=== PATIENT | female | born 2000 | race Caucasian/White ===

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

== ENCOUNTER 2022-01-31 10:04 | Emergency (ER) | payer OTHER, BC, SELFPAY ==
--- NOTE | 2022-01-31 10:15 | ED.URI ---
HPI - URI/Sore Throat General Chief Complaint: Upper Respiratory Infection Stated Complaint: strep test Time Seen by Provider: 01/31/22 10:15 Source: patient Mode of arrival: ambulatory Limitations: no limitations History of Present Illness HPI Narrative: 22 yo F presents with c/o sore throat for 2 days. No other symptoms. Denies fever/chills. No N/v/D. No fatigue or bodyaches. States she use to get strep twice a year. Pt is well appearing. All systems reviewed and negative except as noted above. Related Data Home Medications Medication Instructions Recorded Confirmed cholecalciferol (vitamin D3) 100 100 mcg PO DAILY 08/13/20 10/21/21 mcg (4,000 unit) capsule Allergies Allergy/AdvReac Type Severity Reaction Status Date / Time No Known Allergies Allergy Verified 10/21/21 14:42 Review of Systems Review of Systems: CONSTITUTIONAL: Denies fever, chills, or sweats. EYES: Denies visual changes, redness, or discharge. ENT: Denies rhinorrhea, congestion. Reports sore throat. CARDIOVASCULAR: Denies chest pain, palpitations, or edema. RESPIRATORY: Denies cough or dyspnea. GASTROINTESTINAL: Denies abdominal pain, nausea, vomiting, or diarrhea. GENITOURINARY: Denies dysuria or hematuria. SKIN: Denies rash or itching. MUSCULOSKELETAL: Denies back pain, joint pain, or myalgia. NEUROLOGIC: Denies headache, numbness, or weakness. PSYCHIATRIC: Denies anxiety or depression. All other systems reviewed are negative, except as documented in HPI. [facility] Past Medical History Medical History Hx of self-harm Surgical History Surgical History H/O knee surgery (~2019) Family History Family History Grandparent Breast cancer Grandparent Heart disease Diabetes mellitus Hypertension Social History Social History (Updated 10/21/21 @ 14:49 by Khadijah Godfrey CMA) Alcohol intake: former Substance use type: does not use Comments At time of signature, agree with nursing past medical, surgical, social and family history. There is no relevant family history pertinent to the presenting complaint. Exam Narrative: GENERAL: This is a well-nourished, well-developed patient, in no apparent distress. HEAD: normocephalic, atraumatic. EYES: PERRL. Sclera clear/white. Vision is grossly intact. EARS: External ears normal, auditory canals clear and without drainage, TMs normal without perforation. Hearing grossly intact. NOSE: External nose normal with no obvious nasal discharge, nares without redness, no rhinorrhea. THROAT: Mucous membranes moist, no erythema to posterior pharynx, no exudates or swelling. Tonsils normal bilaterally. Clear postnasal drainage noted. NECK: Neck supple, non-tender without lymphadenopathy, masses or thyromegaly. CARDIOVASCULAR: Regular rate and rhythm without murmurs, gallops, or rubs. RESPIRATORY: Clear to auscultation. Breath sounds equal bilaterally. No wheezes, rales, or rhonchi. SKIN: warm, Dry, intact with no suspicious lesions or rash, good texture and turgor. NEURO: awake, alert, and oriented to person, place and time. There were no obvious focal neurologic abnormalities. EXTREMITIES: No joint tenderness, effusion, or edema noted. Course Course Level of Care: Express Care Visit Vital Signs Vital signs: Vital Signs Temperature 36.8 C 01/31/22 10:18 Pulse Rate 107 H 01/31/22 10:18 Respiratory Rate 16 01/31/22 10:18 Blood Pressure 103/69 01/31/22 10:18 Pulse Oximetry 98 01/31/22 10:18 Oxygen Delivery Room Air 01/31/22 10:18 Temperature 36.8 C 01/31/22 10:18 Pulse Rate 107 H 01/31/22 10:18 Respiratory Rate 16 01/31/22 10:18 Blood Pressure 103/69 01/31/22 10:18 Pulse Oximetry 98 01/31/22 10:18 Oxygen Delivery Room Air 01/31/22 10:18 Reviewed MDM - URI/Sore Throat MDM Narrative M
[2022-01-31 10:18] VITALS: BP 103/69; PULSE 107; RESP 16; TEMP 36.8; O2SAT 98
== END 2022-01-31 10:33 | disposition home or self-care (01) ==
PROVIDERS: Emergency Provider Nurse Practitioner Family; PCP Family Medicine
DX: J02.9 Acute pharyngitis, unspecified (principal); R09.82 Postnasal drip
CPT/HCPCS: 87081; 87880; 99213; G0463

== ENCOUNTER 2022-07-06 15:06 | Emergency (ER) | payer OTHER, BC, SELFPAY ==
[2022-07-06 15:17] VITALS: BP 111/69; PULSE 91; RESP 16; TEMP 36.3; O2SAT 98
[2022-07-06 16:38] LABS: Influenza A QL RT-PCR Negative (Negative); Influenza B QL RT-PCR Negative (Negative); SARS-CoV-2 RNA PCR Negative
[2022-07-06 16:41] LABS: Strep Group A RT-PCR DETECTED (Negative)
--- NOTE | 2022-07-06 16:58 | ED.GENADULT ---
HPI - General Adult General Chief complaint: Unspecified Stated complaint: diarrhea, sore throat, abdominal pain Time Seen by Provider: 07/06/22 16:42 History of Present Illness HPI narrative: 22-year-old female here for evaluation of sore throat over the past several days. She is tolerating her secretions. Has not attempted any medicine for pain. She presents requesting testing for COVID flu and strep. Denies fevers, chills, nausea, vomiting, cough or shortness of breath. Related Data Home Medications Medication Instructions Recorded Confirmed cholecalciferol (vitamin D3) 100 100 mcg PO DAILY 08/13/20 10/21/21 mcg (4,000 unit) capsule Allergies Allergy/AdvReac Type Severity Reaction Status Date / Time No Known Allergies Allergy Verified 10/21/21 14:42 Review of Systems Review of Systems: Gen: Denies fevers or chills Eyes: Denies eye pain or visual change ENT: Reports sore throat. Respiratory: Denies shortness of breath or cough CV: Denies chest pain or palpitations GI: Denies abdominal pain nausea, emesis or diarrhea : denies burning, urgency, frequency or hematuria Musculoskeletal: Denies back pain or muscle pain Neuro: Denies numbness, tingling, weakness or focal weakness Skin: Denies rash Except as documented, all other systems reviewed and negative [facility] Past Medical History Medical History Hx of self-harm Surgical History Surgical History H/O knee surgery (~2019) Family History Family History Grandparent Breast cancer Grandparent Heart disease Diabetes mellitus Hypertension Social History Social History (Updated 10/21/21 @ 14:49 by Khadijah Godfrey CMA) Alcohol intake: former Substance use type: does not use Exam Narrative: Gen: Alert, oriented, no acute distress Eyes: EOMI, no icterus Pulm: Respirations even and unlabored, symmetric thorax expansion, no audible stridor or visible cyanosis ENT: Posterior oropharynx is erythematous, tonsils are 2+ bilaterally with diffuse patchy exudates; no uvular deviation. Full range of motion in neck. CV: Regular rate per telemetry GI: No distension, no voluntary/involuntary guarding Neuro: AOx4, moves all extremities without apparent difficulty or weakness, follows commands Skin: No jaundice, no visible bruising, rashes, lesions or wounds on exposed skin Psych: Normal mood/affect, insight/judgement good, adequate fund of knowledge, recent/remote memory intact Course Vital Signs Vital signs: Vital Signs Temperature 97.4 F L 07/06/22 15:17 Pulse Rate 91 07/06/22 15:17 Respiratory Rate 16 07/06/22 15:17 Blood Pressure 111/69 07/06/22 15:17 Pulse Oximetry 98 07/06/22 15:17 Oxygen Delivery Room Air 07/06/22 15:17 Temperature 97.4 F L 07/06/22 15:17 Pulse Rate 91 07/06/22 15:17 Respiratory Rate 16 07/06/22 15:17 Blood Pressure 111/69 07/06/22 15:17 Pulse Oximetry 98 07/06/22 15:17 Oxygen Delivery Room Air 07/06/22 15:17 Medical Decision Making MDM Narrative Medical decision making narrative: 22-year-old female here for evaluation of sore throat over the past several days; requesting viral testing and strep throat testing. COVID and flu are negative but her strep test is positive which likely explains her symptoms. She was sent home with course of antibiotics. She is stable for discharge at this time she is tolerating her secretions, no evidence of [employer] RTA visualized, and is not immunocompromised. Return precautions discussed and she voiced understanding Vital Signs Vital Signs: Vital Signs Temperature 97.4 F L 07/06/22 15:17 Pulse Rate 91 07/06/22 15:17 Respiratory Rate 16 07/06/22 15:17 Blood Pressure 111/69 07/06/22 15:17 Pulse Oximetry 98 07/06/22 15:17 Oxygen Delivery Room Air 07/06/22 15
== END 2022-07-06 17:08 | disposition home or self-care (01) ==
PROVIDERS: Emergency Medicine; Emergency Provider Physician Assistant; PCP Family Medicine
DX: J02.0 Streptococcal pharyngitis (principal); Z20.822 Contact with and (suspected) exposure to COVID-19
CPT/HCPCS: 87636; 87651; 99283

== ENCOUNTER 2022-11-26 12:11 | Emergency (ER) | payer OTHER, BC, SELFPAY ==
--- NOTE | ~2022-11-26 | CT_ITS ---
Non-contrast CT scan of the Abdomen and Pelvis Clinical indication: Abdominal pain, hematuria Technique: 2.5 mm axial scans were obtained through the abdomen and pelvis without intravenous or or al contrast. Dose reduction technique was used on this scan by utilizing automated exposure control a nd iterative reconstruction technique. The dose-length product (DLP) was 250.84 mGy-cm. Findings: Images through the lung bases reveal no abnormalities. 4 mm nonobstructing right renal stone noted. No left renal stone. No ureteral stone or hydronephrosis on either side. The liver, spleen, pancreas, gallbladder, and adrenals appear normal. There is no aortic aneurysm. There is no evidence of bowel obstruction. Normal appendix. Images through the pelvis were performed. No lymphadenopathy evident. Urinary bladder unremarkable. N o adnexal mass seen. Trace pelvic ascites. Impression: 4 mm nonobstructing right renal stone. Trace pelvic ascites, nonspecific. Reviewed, dictated and finalized at [facility]. Impression: 4 mm nonobstructing right renal stone. Trace pelvic ascites, nonspecific.
[2022-11-26 12:21] VITALS: BP 124/69; PULSE 80; RESP 17; TEMP 36.4; O2SAT 100
[2022-11-26] MEDS: ONDANSETRON INJ 4 MG/2 ML VIAL IV PUSH (12:44)
[2022-11-26] MEDS: MORPHINE SULFATE (*CRX) 4 MG/ML INJ IV PUSH (12:44)
[2022-11-26] MEDS: SODIUM CHLORIDE 0.9% IV 1,000 ML 999 ML IV CONT (12:44)
[2022-11-26 12:49] LABS: Basophils Absolute Auto 0.1 K/mm3 (0.0-0.1); Basophils Percent Auto 0.6 % (0.2-1.2); Eosinophils Absolute Auto 0.3 K/mm3 (0-0.3); Eosinophils Percent Auto 4.2 % (0-4.4); Hematocrit 39.3 % (37.0-47.0); Hemoglobin 12.8 g/dL (12.0-15.0); Immature Granulocyte Absolute 0.02 K/mm3 (0.00-0.031); Immature Granulocyte Percent A 0.3 % (0-0.5); Lymphocytes Absolute Auto 1.76 K/mm3 (0.9-3.2); Lymphocytes Percent Auto 22.6 % (18.3-44.2); Mean Corpuscular HGB Conc 32.6 g/dl (32-36); Mean Corpuscular Hemoglobin 30.2 pg (26-34); Mean Corpuscular Volume 92.7 fl (80-100); Monocytes Absolute Auto 0.6 K/mm3 (0.1-0.6); Monocytes Percent Auto 7.2 % (2.6-8.5); Neutrophils Absolute Auto 5.1 K/mm3 (1.3-6.7); Neutrophils Percent Auto 65.1 % (45.5-73.1); Platelet Count Result 268 k/mm3 (150-375); Red Blood Count 4.24 M/mm3 (4.2-5.4); Red Cell Distribution Width 12.7 % (11.5-14.5); White Blood Count 7.8 K/mm3 (4.5-10.0)
[2022-11-26 12:54] LABS: Appearance Urine Clear (Clear); Bacteria Urine Rare /hpf; Bilirubin Urine Negative (Negative); Blood Urine 3+ (Negative); Color Urine Yellow (Yellow); Glucose Urine UA Negative (Negative); Ketones Urine Negative (Negative); Leukocyte Esterase Ur Negative LEU/UL (Negative); Nitrate Urine Negative (Negative); Non Pathogenic Casts 0-2; Protein Urine Negative (Negative); RBC Urine 0-2 /hpf (0-2); Specific Grav Ur 1.017 (1.001-1.035); Squamous Epithelial Cell Urine Few /hpf (Few); Urobilinogen Urine 0.2 mg/dL (<2.0); WBC Urine 0-5 /hpf
[2022-11-26 12:57] LABS: Add Urine Microscopic? YES
[2022-11-26 13:06] LABS: Alanine Aminotransferase 18 U/L (6-35); Albumin Level 4.4 g/dL (3.5-5.1); Alkaline Phosphatase 41 U/L (38-126); Anion Gap 5 mmol/L (8-16); Aspartate Amino Transferase 25 U/L (14-36); Bilirubin,Total 0.6 mg/dL (0.2-1.3); Blood Urea Nitrogen 7 mg/dL (7-17); Calcium 9.2 mg/dL (8.4-10.2); Carbon Dioxide 28 mmol/L (22-30); Chloride 105 mmol/L (98-107); Estimated Glomerular Filt Rate > 60; Glucose 98 mg/dL (65-110); Lipase 89 U/L (23-300); Potassium 3.8 mmol/L (3.4-5.0); Sodium 138 mmol/L (137-145)
[2022-11-26 14:28] VITALS: BP 99/52; PULSE 51; RESP 18; O2SAT 98
--- NOTE | 2022-11-26 15:16 | ED.GENADULT ---
HPI - General Adult General Chief complaint: Abdominal Pain Stated complaint: abdominal pain Time Seen by Provider: 11/26/22 12:35 History of Present Illness HPI narrative: Patient is a 22-year-old female who presents ER with left-sided abdominal pain. Heartburn intermittent. Associate with nausea. No radiation to the groin or back. No diarrhea. No urinary frequency urgency or dysuria. Denies constipation. No aggravating or alleviating factors. No history of kidney stones. No vaginal bleeding or vaginal discharge. Does not feel she can be or at risk for STI. Related Data Home Medications Medication Instructions Recorded Confirmed cholecalciferol (vitamin D3) 100 100 mcg PO DAILY 08/13/20 08/05/22 mcg (4,000 unit) capsule Allergies Allergy/AdvReac Type Severity Reaction Status Date / Time No Known Allergies Allergy Verified 11/26/22 12:39 Review of Systems Review of Systems: All systems reviewed & are unremarkable except as noted in HPI and below Constitutional: Constitutional: Denies chills, Denies fatigue and Denies fever(s) ENT: Denies nasal congestion and Denies sore throat Cardiovascular: Cardiovascular: Denies chest pain, Denies rapid heart rate and Denies radiating jaw, neck or arm pain Gastrointestinal: Gastrointestinal: Reports abdominal pain, Denies diarrhea, Reports nausea and Denies vomiting Genitourinary: Genitourinary: Denies nocturia, Denies dysuria and Denies flank pain PMFSH Past Medical History Medical History (Updated 11/26/22 @ 15:22 by Viet Diallo MD) Anxiety and depression COVID-19 Hx of self-harm OCD (obsessive compulsive disorder) Surgical History Surgical History H/O knee surgery (~2019) Family History Family History Grandparent Breast cancer Grandparent Heart disease Diabetes mellitus Hypertension Social History Social History (Updated 08/05/22 @ 13:32 by Ashvin Sales MA) Smoking status: Former smoker Tobacco type: e-cigarettes/vaping Alcohol intake: never Substance use: never Substance use type: does not use Lack of Transportation: No Lack of Food: Sometimes True Current Housing: I Have Housing Concerned About Future Housing: No Difficulty Paying Gas/Electric Bills: No Difficulty Paying for Meds: No Currently Unemployed: No Education: High School Diploma/GED Difficulty w/ Childcare or Family Care: No Exam Narrative: GENERAL: Well-appearing, well-nourished, and in no acute distress. HEAD: Normocephalic, atraumatic. EYES: PERRL and EOMI. ENT: Mucous membranes moist. CHEST: Clear to auscultation. No respiratory distress. HEART: Regular rate and rhythm. Normal peripheral pulses. ABDOMEN: Soft, nontender, nondistended. EXTREMITIES: Normal range of motion. No edema. SKIN: Warm, dry, no rash. NEURO: Alert and oriented x3. PSYCH: Normal mood and affect. Course Course Emergency Course: Pain resolved with morphine. Informed of results. May have passed a kidney stone. No evidence of UTI. Soft nontender abdomen pre and post medication. Vital Signs Vital signs: Vital Signs Temperature 97.5 F L 11/26/22 12:21 Pulse Rate 80 11/26/22 12:21 Respiratory Rate 17 11/26/22 12:21 Blood Pressure 124/69 11/26/22 12:21 Pulse Oximetry 100 11/26/22 12:21 Oxygen Delivery Room Air 11/26/22 12:21 Temperature 97.5 F L 11/26/22 12:21 Pulse Rate 51 L 11/26/22 14:28 Respiratory Rate 18 11/26/22 14:28 Blood Pressure 99/52 L 11/26/22 14:28 Pulse Oximetry 98 11/26/22 14:28 Oxygen Delivery Room Air 11/26/22 12:21 Medical Decision Making Vital Signs Vital Signs: Vital Signs Temperature 97.5 F L 11/26/22 12:21 Pulse Rate 80 11/26/22 12:21 Respiratory Rate 17 11/26/22 12:21 Blood Pressure 124/69 11/26/22 12:21 Pulse Oximetry 100
[2022-11-26 15:39] VITALS: BP 100/60; PULSE 70; RESP 18; O2SAT 98
== END 2022-11-26 15:40 | disposition home or self-care (01) ==
PROVIDERS: Emergency Provider Emergency Medicine; PCP Family Medicine
DX: N20.0 Calculus of kidney (principal); Z86.16 Personal history of COVID-19; Z87.891 Personal history of nicotine dependence
CPT/HCPCS: 36415; 74176; 80053; 81001; 81025; 83690; 85025; 96361; 96374; 96375; 99284; J2270; J2405; J7030

== ENCOUNTER 2023-04-18 11:22 | Emergency (ER) | payer OTHER, BC, SELFPAY ==
[2023-04-18 11:34] VITALS: BP 125/82; PULSE 82; RESP 16; TEMP 36.4; O2SAT 100
[2023-04-18 11:35] VITALS: BP 125/82; PULSE 82; RESP 16; TEMP 36.4; O2SAT 100
--- NOTE | 2023-04-18 11:48 | ED.LOWEXIN ---
HPI - Extremity Injury (Lower) General Chief Complaint: Extremity Injury, Lower Stated Complaint: Left Foot Pain and Swelling Source: patient, family and RN notes reviewed History of Present Illness HPI Narrative: 23 yo F presents to urgent care with complaints of left mid foot pain, medially. 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 Pt states she wears tennis shoes to work. Denies any injury. Denies any numbness, tingling, fevers, or chills. Pt did take ibuprofen last night. Pt also mentions she doesn't like to eat. Pt states she has gone 3 days without eating but will drink plenty of fluids. Pt states this has been going on for months. Pt states she stopped taking her fluoxetine that she was prescribed about 3 years ago. Pt states she no longer thinks she is anxious but does admit to feeling like there is a pit in her stomach. Pt states when she does eat, she wants to vomit or will have a BM right away. Pt does admit to a syncopal episode last night. Pt states she does smoke weed which will help her anxiety and appetite. Related Data Home Medications Medication Instructions Recorded Confirmed cholecalciferol (vitamin D3) 100 100 mcg PO DAILY 08/13/20 08/05/22 mcg (4,000 unit) capsule Allergies Allergy/AdvReac Type Severity Reaction Status Date / Time No Known Allergies Allergy Verified 04/18/23 11:34 Review of Systems Review of Systems: CONSTITUTIONAL: Denies fever, chills, or sweats. EYES: Denies visual changes, redness, or discharge. ENT: Denies otalgia and sore throat CARDIOVASCULAR: Denies chest pain, palpitations, or edema. RESPIRATORY: Denies cough or dyspnea. GASTROINTESTINAL: Denies abdominal pain, nausea, vomiting, or diarrhea. GENITOURINARY: Denies dysuria or hematuria. SKIN: Denies rash or itching. MUSCULOSKELETAL: left foot pain NEUROLOGIC: Denies headache, numbness, or weakness. Pertinent positives per HPI. [facility] Past Medical History Medical History (Updated 04/18/23 @ 11:51 by Rhonda Dyer APRN) Anxiety and depression COVID-19 Hx of self-harm OCD (obsessive compulsive disorder) Surgical History Surgical History H/O knee surgery (~2019) Family History Family History Grandparent Breast cancer Grandparent Heart disease Diabetes mellitus Hypertension Social History Social History (Updated 08/05/22 @ 13:32 by Ashvin Sales MA) Smoking status: Former smoker Tobacco type: e-cigarettes/vaping Alcohol intake: never Substance use: never Substance use type: does not use Lack of Transportation: No Lack of Food: Sometimes True Current Housing: I Have Housing Concerned About Future Housing: No Difficulty Paying Gas/Electric Bills: No Difficulty Paying for Meds: No Currently Unemployed: No Education: High School Diploma/GED Difficulty w/ Childcare or Family Care: No Comments At the time of my signature, I reviewed and agree with the nursing past medical, surgical, social, and family history. There is no relevant family history pertinent to the patient complaint. Exam Narrative: GENERAL: This is a well-nourished, well-developed patient, in no apparent distress. HEAD: normocephalic, atraumatic. EYES: Sclera clear/white. Vision is grossly intact. EARS: External ears normal, auditory canals clear and without drainage. Hearing grossly intact. NOSE: External nose normal with no obvious nasal discharge, nares without redness, no rhinorrhea. THROAT: Mucous membranes moist, posterior pharynx clear. NECK: Neck supple, non-tender without lymphadenopathy, masses or thyromegaly. CARDIOVASCULAR: Regular rate and rhythm without murmurs, gallops, or rubs. RESPIRATORY: Clear to auscultation. Breath sounds equal bilaterally. No wheezes, rales, or rhonchi. SKIN: warm, intact with no susp
== END 2023-04-18 11:55 | disposition home or self-care (01) ==
PROVIDERS: Emergency Provider Nurse Practitioner Family; PCP Family Medicine
DX: F41.9 Anxiety disorder, unspecified (principal); S93.602A Unspecified sprain of left foot, initial encounter; Z87.891 Personal history of nicotine dependence; X58.XXXA Exposure to other specified factors, initial encounter
CPT/HCPCS: 99212; G0463

== ENCOUNTER 2023-04-21 12:09 | Emergency (ER) | payer OTHER, BC, SELFPAY ==
--- NOTE | 2023-04-21 12:20 | ED.GENADULT ---
HPI - General Adult General Chief complaint: Extremity Injury, Lower Stated complaint: Left Foot Pain Time Seen by Provider: 04/21/23 12:20 Source: patient, RN notes reviewed and old records reviewed Mode of arrival: ambulatory Limitations: no limitations History of Present Illness HPI narrative: 23 year old female presents to [facility] care with complaints of left foot pain that continues with now increase in her pain and to the dorsal and lateral aspect of her foot also. Patient reports no known injury to her left foot, reports that she was having medial foot pain and seen her on the and was placed off work for a few days. Today she returned to work and was sent home due to her having increased pain to her left foot. Patient reports that she has appointment with her PCP tomorrow to get her fluoxetine restarted since she has been off of it for about a month. Patient reports increased pain with flexion of left foot, strong pedal pulse to left foot, pink and warm to touch, denies any pain to the bottom of her foot or to heel region, patient states that she can't stand to bear weight to her left foot it is so painful. Patient has been wearing orthopedic support to her left ankle/foot. Patient reports past history of stress fracture left foot age 20 when running cross country. MD complaint: left foot pain Onset (ago): day(s) (since April 18) Location: left and lower extremity (foot) Severity scale (1-10): 4 Quality: aching Exacerbating factors: movement (ambulation) Treatments prior to arrival: NSAID and splint Related Data Allergies Allergy/AdvReac Type Severity Reaction Status Date / Time No Known Allergies Allergy Verified 04/18/23 11:34 Review of Systems Review of Systems: CONSTITUTIONAL: Denies fever, chills, or sweats. EYES: Denies visual changes, redness, or discharge. ENT: Denies rhinorrhea, congestion, sore throat, or otalgia. CARDIOVASCULAR: Denies chest pain, palpitations, or edema. RESPIRATORY: Denies cough or dyspnea. GASTROINTESTINAL: Denies abdominal pain, nausea, vomiting, or diarrhea. GENITOURINARY: Denies dysuria or hematuria. SKIN: Denies rash or itching. MUSCULOSKELETAL: Denies back pain, positive for pain to left foot, or myalgia. NEUROLOGIC: Denies headache, numbness, or weakness. PSYCHIATRIC: Positive history of anxiety or depression. All systems reviewed & are unremarkable except as noted in HPI and below PMFSH Past Medical History Medical History Anxiety and depression COVID-19 Hx of self-harm OCD (obsessive compulsive disorder) Surgical History Surgical History H/O knee surgery (~2020) Family History Family History Grandparent Breast cancer Grandparent Heart disease Diabetes mellitus Hypertension Social History Social History (Updated 04/21/23 @ 18:30 by Kera Carranza NP) Smoking status: Former smoker Tobacco type: e-cigarettes/vaping Alcohol intake: never Substance use: current Substance use type: marijuana Last use: once a week Lack of Transportation: No Lack of Food: Sometimes True Current Housing: I Have Housing Concerned About Future Housing: No Difficulty Paying Gas/Electric Bills: No Difficulty Paying for Meds: No Currently Unemployed: No Education: High School Diploma/GED Difficulty w/ Childcare or Family Care: No Gender identity (if verbalized by the patient): Female Comments At time of signature, agree with nursing past medical, surgical, social and family history. There is no relevant family history pertinent to the presenting complaint Exam Narrative: GENERAL: Well-appearing, well-nourished, and in no acute distress. HEAD: Normocephalic, atraumatic. EYES: PERRLA and EOMI. ENT: Nares clear, no rhinorrhea or epistaxis. Mucous membranes moist. NECK: Supple.no
[2023-04-21 12:24] VITALS: BP 107/78; PULSE 81; RESP 16; TEMP 36.9; O2SAT 99
== END 2023-04-21 13:10 | disposition home or self-care (01) ==
PROVIDERS: Emergency Provider Registered Nurse; PCP Family Medicine
DX: M79.672 Pain in left foot (principal); F12.90 Cannabis use, unspecified, uncomplicated; Z86.16 Personal history of COVID-19; Z87.891 Personal history of nicotine dependence
CPT/HCPCS: 73630; 99213; G0463

== ENCOUNTER 2023-11-23 11:24 | Emergency (ER) | payer OTHER, SELFPAY ==
[2023-11-23 11:44] VITALS: BP 106/64; PULSE 87; RESP 14; TEMP 36.5; O2SAT 100
--- NOTE | 2023-11-23 12:08 | ED.URI ---
HPI - URI/Sore Throat General Chief Complaint: Upper Respiratory Infection Stated Complaint: Strep test Time Seen by Provider: 11/23/23 12:08 Source: patient, RN notes reviewed and old records reviewed Mode of arrival: ambulatory Limitations: no limitations History of Present Illness HPI Narrative: 23-year-old female to [facility] for complaint of sore throat for 2 days. Patient has not attempted to treat at home. Patient denies fever, cough, nausea, vomiting, diarrhea, allergies. patient able to tolerate fluids by mouth. Patient in no acute distress in exam room. Related Data Home Medications Medication Instructions Recorded Confirmed No Home Medications 11/23/23 11/23/23 Allergies Allergy/AdvReac Type Severity Reaction Status Date / Time No Known Allergies Allergy Verified 11/23/23 12:00 Review of Systems Review of Systems: All systems reviewed & are unremarkable except as noted in HPI and below Constitutional: Constitutional: Reports no additional constitutional complaints Eyes: Eyes: Reports no additional eye complaints ENT: Reports as per HPI and Reports sore throat Cardiovascular: Cardiovascular: Reports no additional cardiovascular complaints, Denies chest pain and Denies dyspnea Respiratory: Respiratory: Reports no additional respiratory complaints, Denies cough and Denies dyspnea Musculoskeletal: Musculoskeletal: Reports no additional musculoskeletal complaints Neurologic: Reports system reviewed and no additional complaints, except as documented Psychiatric: Psychiatric: Reports no additional psychiatric complaints PMFSH Past Medical History Medical History Anxiety and depression Chronic migraine w/o aura w/o status migrainosus, not intractable COVID-19 Hx of self-harm OCD (obsessive compulsive disorder) Pes planus of both feet Posterior tibial tendinitis, left leg Surgical History Surgical History H/O knee surgery (~2020) Family History Family History Grandparent Breast cancer Grandparent Heart disease Diabetes mellitus Hypertension Social History Social History Smoking status: Former smoker Tobacco type: e-cigarettes/vaping Alcohol intake: current Substance use: former Substance use type: marijuana Last use: 7 months ago, no longer uses it Do You Feel Safe in your Home?: Yes Lack of Transportation: No Lack of Food: Sometimes True Current Housing: I Have Housing Concerned About Future Housing: No Difficulty Paying Gas/Electric Bills: No Difficulty Paying for Meds: No Currently Unemployed: No Education: High School Diploma/GED Difficulty w/ Childcare or Family Care: No Occupation/Education: occupation Additional occupation/education comments: [address] Gender identity (if verbalized by the patient): Female Comments At the time of my signature, I reviewed and agree with the nursing past medical, surgical, social, and family history. There is no relevant family history pertinent to the patient complaint. Exam Const: General: cooperative, healthy appearing, comfortable, no acute distress, alert and well nourished Nutritional Appearance: well nourished Orientation/consciousness: patient oriented x3 Limitations: no limitations HENMT: Head: normal to inspection Ears: external ears normal Face/Nose/Sinus: Normal external nose present, Normal nares present, normal facial exam, No erythema and No edema Face and sinus: normal facial exam, no erythema and no edema Mouth: Yes Normal oral and palatal mucosa present Throat: posterior oropharynx abnormal erythema Eyes: General: appearance normal, both eyes and all related structures Neck: Neck: normal visual inspection, full ROM and no
== END 2023-11-23 12:30 | disposition home or self-care (01) ==
PROVIDERS: Emergency Provider Nurse Practitioner Family; PCP Family Medicine
DX: B34.9 Viral infection, unspecified (principal); Z86.16 Personal history of COVID-19
CPT/HCPCS: 87081; 87880; 99213; G0463

== ENCOUNTER 2023-12-04 01:35 | Emergency (ER) | payer OTHER, SELFPAY ==
[2023-12-04 01:38] VITALS: BP 121/75; PULSE 66; RESP 20; TEMP 36.3; O2SAT 99
[2023-12-04] MEDS: SULFAMETHOXAZOLE/TRIMETHOPRIM 800/160 MG DS TABLET 1 TAB PO (01:58)
--- NOTE | 2023-12-04 02:05 | ED.SKABFB ---
HPI - Skin/Abscess/Foreign Bdy General Chief complaint: Skin/Abscess/Foreign Body Stated complaint: Infected toenail Time Seen by Provider: 12/04/23 01:46 History of Present Illness HPI narrative: Patient presenting with 2 weeks now of right big toe being infected, she has tried soaks at home and she tried draining herself but only blood came out. No systemic symptoms Related Data Allergies Allergy/AdvReac Type Severity Reaction Status Date / Time No Known Allergies Allergy Verified 12/04/23 01:40 Review of Systems Review of Systems: All systems reviewed & are unremarkable except as noted in HPI and below PMFSH Past Medical History Medical History Anxiety and depression Chronic migraine w/o aura w/o status migrainosus, not intractable COVID-19 Hx of self-harm OCD (obsessive compulsive disorder) Pes planus of both feet Posterior tibial tendinitis, left leg Surgical History Surgical History H/O knee surgery (~2019) Family History Family History Grandparent Breast cancer Grandparent Heart disease Diabetes mellitus Hypertension Social History Social History Smoking status: Former smoker Tobacco type: e-cigarettes/vaping Alcohol intake: current Substance use: former Substance use type: marijuana Last use: 7 months ago, no longer uses it Do You Feel Safe in your Home?: Yes Lack of Transportation: No Lack of Food: Sometimes True Current Housing: I Have Housing Concerned About Future Housing: No Difficulty Paying Gas/Electric Bills: No Difficulty Paying for Meds: No Currently Unemployed: No Education: High School Diploma/GED Difficulty w/ Childcare or Family Care: No Occupation/Education: occupation Additional occupation/education comments: [address] Gender identity (if verbalized by the patient): Female Exam Narrative: EXAMINATION OF ORGAN SYSTEMS/BODY AREAS: Constitutional: Vital signs per nursing GENERAL:[No acute distress, non-toxic appearing.] HEAD: Normal with no signs of head trauma. EYES: EOMI, conjunctiva normal ENT: Hearing grossly intact LUNGS: Nonlabored breathing. HEART: [Regular rate and rhythm] ABD: No distension EXT: Normal range of motion SKIN: Small area tenderness and swelling cuticle right great toe NEURO: [Alert and oriented x 3. No gross focal sensory or strength deficits.] PSYCH: Normal affect Course Vital Signs Vital signs: Vital Signs Temperature 97.3 F L 12/04/23 01:38 Pulse Rate 66 12/04/23 01:38 Respiratory Rate 20 12/04/23 01:38 Blood Pressure 121/75 12/04/23 01:38 Pulse Oximetry 99 12/04/23 01:38 Oxygen Delivery Room Air 12/04/23 01:38 Temperature 97.3 F L 12/04/23 01:38 Pulse Rate 66 12/04/23 01:38 Respiratory Rate 20 12/04/23 01:38 Blood Pressure 121/75 12/04/23 01:38 Pulse Oximetry 99 12/04/23 01:38 Oxygen Delivery Room Air 12/04/23 01:38 MDM - Skin/Abscess/Foreign Bdy MDM Narrative Medical decision making narrative: Patient presents with pain to her right great toe, with some swelling and tenderness, I suspect likely paronychia. I did offer a nerve block and drainage versus just antibiotics, it is very small and not fluctuant here, patient would rather just try antibiotics for now and continue soaks and I feel this is reasonable, she has no systemic symptoms and symptoms have been ongoing for a while I will give her follow-up to Podiatry and return precautions. Discharge Plan Discharge Clinical Impression: Paronychia of toe Patient Disposition: Home, Self-Care Condition: Stable Instructions: Antibiotic Form, Parobertchia (ED) Additional Instructions: Please take the antibiotics as prescribed, continue soa
== END 2023-12-04 02:11 | disposition home or self-care (01) ==
LOC: ANHED 02:05
PROVIDERS: Emergency Provider Emergency Medicine; PCP Family Medicine
DX: L03.031 Cellulitis of right toe (principal); F41.9 Anxiety disorder, unspecified; F32.A Depression, unspecified
CPT/HCPCS: 99283; A9270

== ENCOUNTER 2024-05-27 01:38 | Emergency (ER) | payer OTHER, SELFPAY ==
--- NOTE | ~2024-05-27 | CT_ITS ---
EXAMINATION: CT abdomen pelvis w con DATE: 05/27/2024 04:02 INDICATION: Right lower quadrant abdominal pain. Right flank pain. TECHNIQUE: Computed tomography (CT) of the abdomen and pelvis was performed with 100 mm Omnipaque 350 intravenous contrast. Automated exposure control and iterative reconstruction technique were employe d. The dose-length product was 219.05 mGy-cm. COMPARISON: CT abdomen and pelvis 11/26/2022 FINDINGS: The visualized portions of the lung bases are clear without pneumonia or pleural effusion. The heart size is normal. No pericardial effusion. There is mild pectus excavatum. The liver, gallbla dder, spleen, pancreas, adrenal glands, and left kidney are normal. There is a 4 mm stone in right ki dney. There is mild right hydroureter with urothelial thickening and enhancement. There is diffuse bl adder wall thickening. There are no dilated loops of bowel. The appendix is normal. There are no path ologically enlarged lymph nodes. There is no free intraperitoneal fluid. There is mild lumbar spondyl osis. IMPRESSION: 1. Cystitis and right-sided pyelitis. Reviewed, dictated and finalized at location A. 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
[2024-05-27 01:39] VITALS: BP 136/78; PULSE 73; RESP 19; TEMP 36.4; O2SAT 100
[2024-05-27 02:03] LABS: Basophils Absolute Auto 0.1 K/mm3 (0.0-0.1); Basophils Percent Auto 0.7 % (0.2-1.2); Eosinophils Absolute Auto 0.4 K/mm3 (0-0.3); Eosinophils Percent Auto 3.4 % (0-4.4); Hematocrit 38.7 % (37.0-47.0); Hemoglobin 12.9 g/dL (12.0-15.0); Immature Granulocyte Absolute 0.02 K/mm3 (0.00-0.031); Immature Granulocyte Percent A 0.2 % (0-0.5); Lymphocytes Absolute Auto 2.76 K/mm3 (0.9-3.2); Lymphocytes Percent Auto 26.3 % (18.3-44.2); Mean Corpuscular HGB Conc 33.3 g/dl (32-36); Mean Corpuscular Hemoglobin 31.2 pg (26-34); Mean Corpuscular Volume 93.5 fl (80-100); Mean Platelet Volume 10.1 fl (7.4-10.4); Monocytes Absolute Auto 0.7 K/mm3 (0.1-0.6); Monocytes Percent Auto 6.3 % (2.6-8.5); Neutrophils Absolute Auto 6.6 K/mm3 (1.3-6.7); Neutrophils Percent Auto 63.1 % (45.5-73.1); Platelet Count Result 226 k/mm3 (150-375); Red Blood Count 4.14 M/mm3 (4.2-5.4); Red Cell Distribution Width 12.1 % (11.5-14.5); White Blood Count 10.5 K/mm3 (4.5-10.0)
[2024-05-27 02:07] LABS: Add Urine Microscopic? YES; Appearance Urine Cloudy (Clear); Bacteria Urine None Seen /hpf; Bilirubin Urine Negative (Negative); Blood Urine 2+ (Negative); Color Urine Yellow (Yellow); Glucose Urine UA Negative (Negative); Ketones Urine Negative (Negative); Leukocyte Esterase Ur 2+ LEU/UL (Negative); Nitrate Urine Negative (Negative); Protein Urine 2+ mg/dL (Negative); Specific Grav Ur 1.011 (1.001-1.035); Squamous Epithelial Cell Urine Occasional /hpf (Few); Urobilinogen Urine 0.2 mg/dL (<2.0); WBC Urine >100 /hpf (0-3); pH Urine 6.5 (5.0-9.0)
[2024-05-27 02:25] LABS: Alanine Aminotransferase 14 U/L (6-35); Albumin Level 4.8 g/dL (3.5-5.1); Alkaline Phosphatase 38 U/L (38-126); Anion Gap 7 mmol/L (4-12); Aspartate Amino Transferase 27 U/L (14-36); Bilirubin,Total 0.7 mg/dL (0.2-1.3); Blood Urea Nitrogen 13 mg/dL (7-17); Calcium 9.3 mg/dL (8.4-10.2); Carbon Dioxide 26 mmol/L (22-30); Chloride 103 mmol/L (98-107); Estimated CRCL calculation 127 ml/min; Estimated Glomerular Filt Rate > 60; Glucose 87 mg/dL (65-110); Potassium 4.3 mmol/L (3.4-5.0); Sodium 136 mmol/L (137-145)
[2024-05-27] MEDS: MORPHINE SULFATE (*CRX) 4 MG/ML INJ IV PUSH (03:49)
[2024-05-27] MEDS: ONDANSETRON INJ 4 MG/2 ML VIAL IV PUSH (03:49)
[2024-05-27] MEDS: SODIUM CHLORIDE 0.9% IV 1,000 ML 999 ML IV CONT (03:50)
--- NOTE | 2024-05-27 06:07 | ED.GENADULT ---
HPI - General Adult General Chief complaint: Abdominal Pain Stated complaint: R flank pain, nausea Time Seen by Provider: 05/27/24 03:31 History of Present Illness HPI narrative: patient 24-year-old female who presents emergency department chief complaint of flank pain. Patient reports that around 8:00 p.m. last night started having pain in the right flank area reports he has had prior history of kidney stones reports that she has had no fever reports the pain is aching leg discomfort. Related Data Allergies Allergy/AdvReac Type Severity Reaction Status Date / Time No Known Allergies Allergy Verified 02/03/24 10:38 Review of Systems Review of Systems: A 10 system review of systems was completed on the patient and is negative except for what is stated in the HPI. Nursing and ancillary documentation was reviewed. PMFSH Past Medical History Medical History Anxiety and depression Chronic migraine w/o aura w/o status migrainosus, not intractable COVID-19 Hx of self-harm OCD (obsessive compulsive disorder) Pes planus of both feet Posterior tibial tendinitis, left leg Surgical History Surgical History H/O knee surgery (~2020) Family History Family History Grandparent Breast cancer Grandparent Heart disease Diabetes mellitus Hypertension Social History Social History Smoking status: Former smoker Tobacco type: e-cigarettes/vaping Alcohol intake: current Substance use: former Substance use type: marijuana Last use: 7 months ago, no longer uses it Do You Feel Safe in your Home?: Yes Lack of Transportation: No Lack of Food: Sometimes True Current Housing: I Have Housing Concerned About Future Housing: No Difficulty Paying Gas/Electric Bills: No Difficulty Paying for Meds: No Currently Unemployed: No Education: High School Diploma/GED Difficulty w/ Childcare or Family Care: No Occupation/Education: occupation Additional occupation/education comments: [employer]- [address] [place] [address] Gender identity (if verbalized by the patient): Female Exam Narrative: GENERAL: Well-appearing, well-nourished, and in no acute distress. HEAD: Normocephalic, atraumatic. EYES: PERRLA and EOMI. ENT: Nares clear, no rhinorrhea or epistaxis. Mucous membranes moist. NECK: Supple. CHEST: Clear to auscultation. No respiratory distress. HEART: Regular rate and rhythm. No murmur heard. Normal peripheral pulses. ABDOMEN: Soft, Tenderness palpation right lower quadrant, nondistended, normal active bowel sounds. EXTREMITIES: Normal range of motion. No edema. SKIN: Warm, dry, no rash. NEURO: No focal deficits. Alert and oriented x3. PSYCH: Normal mood and affect. Course Vital Signs Vital signs: Vital Signs Temperature 36.4 C L 05/27/24 01:39 Pulse Rate 73 05/27/24 01:39 Respiratory Rate 19 05/27/24 01:39 Blood Pressure 136/78 05/27/24 01:39 Pulse Oximetry 100 05/27/24 01:39 Oxygen Delivery Room Air 05/27/24 01:39 Temperature 36.4 C L 05/27/24 01:39 Pulse Rate 73 05/27/24 01:39 Respiratory Rate 19 05/27/24 01:39 Blood Pressure 136/78 05/27/24 01:39 Pulse Oximetry 100 05/27/24 01:39 Oxygen Delivery Room Air 05/27/24 01:39 Medical Decision Making MDM Narrative Medical decision making narrative: differential diagnosis includes pyelonephritis, ureterolithiasis, appendicitis, intra-abdominal infection, abscess laboratory studies were obtained that showed a CBC with white count 10.5 urinalysis showed greater than 100 white blood cells patient given a dose of Rocephin in the emergency department and discharged home on Keflex t.i.d. Vital Signs Vital Signs: Vital Signs Temperature 36.4 C L 05/27/24 01:39 Pulse Rate 73 05/27/24 01:39 Respiratory Rate 19 05/27/24 01:39 Blood Pressure 136/78 05/27/24 01:39 Pulse Oximetry 100 05/27/24 01:39 Oxygen Delivery Room Air 05/27/24 01:39 Temperature 36.4 C L 05/27/24 01:39 Pulse Rate 73 05/27/24 01:39 Respiratory Rate 19 05/27/24 01:39 Blood Pressure 136/78 05/27/24 01:39 Pulse Oximetry 100 05/27/24 01:39 Oxygen Delivery Room Air 05/27/24 01:39 Lab Data 05/27/24 01:51 05/27/24 01:51 Labs: Lab Results 05/27/24 Range/Units 01:51 WBC 10.5 H (4.5-10.0) K/mm3 RBC 4.14 L (4.2-5.4) M/mm3 Hgb 12.9 (12.0-15.0) g/dL Hct 38.7 (37.0-47.0) % MCV 93.5 (80-100) fl MCH 31.2 (26-34) pg MCHC 33.3 (32-36) g/dl RDW 12.1 (11.5-14.5) % Plt Count 226 (150-375) k/mm3 MPV 10.1 (7.4-10.4) fl Immature Gran % (Auto) 0.2 (0-0.5) % Neut % (Auto) 63.1 (45.5-73.1) % Lymph % (Auto) 26.3 (18.3-44.2) % Mccreary % (Auto) 6.3 (2.6-8.5) % Eos % (Auto) 3.4 (0-4.4) % Baso % (Auto) 0.7 (0.2-1.2) % Lymph # (Auto) 2.76 (0.9-3.2) K/mm3 Mccreary # (Auto) 0.7 H (0.1-0.6) K/mm3 Eos # (Auto) 0.4 H (0-0.3) K/mm3 Baso # (Auto) 0.1 (0.0-0.1) K/mm3 Abs Immat Gran (auto) 0.02 (0.00-0.031) K/mm3 Absolute Neuts (auto) 6.6 (1.3-6.7) K/mm3 Absolute Nucleated RBC 0.000 (0.0-0.012) K/mm3 Nucleated RBC % 0.0 (0.0-0.2) % Sodium 136 L (137-145) mmol/L Potassium 4.3 (3.4-5.0) mmol/L Chloride 103 (98-107) mmol/L Carbon Dioxide 26 (22-30) mmol/L Anion Gap 7 (4-12) mmol/L BUN 13 D (7-17) mg/dL Creatinine 0.50 L (0.7-1.0) mg/dL Estim Creat Clear Calc 127 ml/min Estimated GFR > 60 (59 - ) Glucose 87 (65-110) mg/dL Calcium 9.3 (8.4-10.2) mg/dL Total Bilirubin 0.7 (0.2-1.3) mg/dL AST 27 (14-36) U/L ALT 14 (6-35) U/L Alkaline Phosphatase 38 (38-126) U/L Total Protein 8.0 (6.3-8.2) g/dL Albumin 4.8 (3.5-5.1) g/dL Urine Color Yellow (Yellow) Urine Appearance Cloudy H (Clear) Urine pH 6.5 (5.0-9.0) Ur Specific Wynne 1.011 (1.001-1.035) Urine Protein 2+ H (Negative) mg/dL Urine Glucose (UA) Negative (Negative) mg/dL Urine Ketones Negative (Negative) mg/dL Ur Blood (Man) 2+ H (Negative) Urine Nitrate Negative (Negative) Urine Bilirubin Negative (Negative) Urine Urobilinogen 0.2 (<2.0) mg/dL Leukocyte Esterase Rfl 2+ H (Negative) RAMIRO/UL Urine RBC 11-20 H (0-2) /hpf Urine WBC >100 H (0-3) /hpf Ur Squamous Epith Cells Occasional (Few) /hpf Urine Bacteria None seen /hpf Urine Casts 3-5 Discharge Plan Discharge Clinical Impression: Pyelonephritis Patient Disposition: Home, Self-Care Condition: Stable Instructions: Antibiotic Form, Kidney Infection (ED), Abdominal Pain (ED) Prescriptions: New cephalexin 500 mg capsule 500 mg PO Q8H 7 Days Qty: 21 0RF No Action Aimovig Autoinjector 140 mg/mL auto-injector 140 mg subcut MONTHLY Qty: 3 3RF Follow-up/Referrals: Alma Delia Sterling MD [Primary Care Provider] - Time of Disposition: 06:30
[2024-05-27 06:55] VITALS: BP 102/60; PULSE 57; RESP 15; O2SAT 100
[2024-05-29 10:03] LABS: BEDSIDEPREGUCG Negative (Negative)
== END 2024-05-27 06:57 | disposition home or self-care (01) ==
PROVIDERS: Emergency Provider Emergency Medicine; PCP Family Medicine
DX: N12 Tubulo-interstitial nephritis, not specified as acute or chronic (principal); G43.709 Chronic migraine without aura, not intractable, without status migrainosus; Z86.16 Personal history of COVID-19; Z87.891 Personal history of nicotine dependence; N30.90 Cystitis, unspecified without hematuria; Z79.899 Other long term (current) drug therapy
CPT/HCPCS: 36415; 74177; 80053; 81001; 81025; 85025; 87077; 87086; 87147; 87186; 96361; 96365; 96375; 99284; J0696; J2270; J2405; J7030; Q9967

== ENCOUNTER 2024-10-27 22:23 | Emergency (ER) | payer OTHER, SELFPAY ==
[2024-10-27 22:24] VITALS: BP 111/77; PULSE 54; RESP 14; TEMP 36.6; O2SAT 100
--- OUTSIDE RECORDS SUMMARY | 2024-10-27 22:26 | XMS_ITS | Clinical Summary ---
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 This disclosure is being madepursuant to the Care Everywhere program and may not contain all information available regarding this patient. Last updated 18.[facility] Allergies Active Allergy Reactions Criticality Noted Date Comments Lactose GI Discomfort 03/10/2018 Medications * Be aware that medications may not be up to date on this document. Alwaysverify current medications with the patient. OtherIndication s: CONTROL Reasons: CONTROL Active amoxicillin (AMOXIL) 875 MG tablet Take by mouth every 12 hours Active benzonatate (TESSALON) 200 MG capsule Take 1 capsule by mouth 3 times daily as needed for Cough 30 capsule 9 Active Additional Information Patient not taking.Reported on 02/09/2020 FLUoxetine (PROZAC) 20 MG capsule TK 1 C PO Q DAY 0 Active norethindone-et hinyl estradiol-FE (LOESTRIN 24 FE) 1-20 MG-MCG(24) tablet Take 1 tablet by mouth once daily Active Immunizations Immunization Administration Dates Next Due INFLUENZA VACCINE, QUADR. (F LUZONE; FLULAVAL; FLUARIX; AFLURIA QUADRIVALENT; 6MO+), 0.5 ML (IIV4) 04/16/2020 Social History Tobacco Use Types Packs/Day Years Used Date Smoking Tobacco: Never Smokeless Tobacco: Never Comments No Sex and Gender Information Value Date Recorded Sex Assigned at Not on file Legal Sex Female 7:28 AM CDT Gender Identity Not on file Sexual Orientation Not on file Last Filed Vital Signs Vital Sign Reading Time Taken Comments Blood Pressure 108/64 09/04/2020 2:04 PM CHILDCARE AIDE Pulse 88 09/04/2020 2:04 PM CHILDCARE AIDE Temperature 36.7 C (98 F) 09/04/2020 2:04 PM CHILDCARE AIDE Respiratory Rate 16 09/04/2020 2:04 PM CHILDCARE AIDE Oxygen Saturation 98% 09/04/2020 2:04 PM CHILDCARE AIDE Inhaled Oxygen Concentration - - Weight 64.4 kg (142 lb) 09/04/2020 2:04 PM CHILDCARE AIDE Height 162.6 cm (5' 4 ) 09/04/2020 2:04 PM CHILDCARE AIDE Body Mass Index 24.37 09/04/2020 2:04 PM CHILDCARE AIDE Plan of Treatment Health Maintenance Due Date Last Done Comments HIV SCREENING 2017 HPV VACCINE (1 - 3-dose series) 2017 CHLAMYDIA/GONORRHEA SCREENING 2018 MENINGOCOCCAL (Group B) VACC INE SHARED DECISION-MAKING (1 of 2 - Standard) 2018 HEPATITIS C SCREENING 01/20/2020 DTAP/TDAP/TD VACCINES (1 - Tdap) 2021 HEPATITIS B VACCINE (1 of 3 - 19+ 3-dose series) 2021 COVID-19 VACCINE (1 - 2023-2 5 season) 2024 DEPRESSION SCREENING 07/12/2024 INFLUENZA VACCINE (Season Ended) 2025 04/16/20 20 ZOSTER VACCINE (1 of 2) 01/25/2052 HIB VACCINE Aged Out No longer eligi ble based on patient's age to complete this topic MENINGOCOCCAL GROUPS A/C/Y/W VACCINE Aged Out No longer eligible b ased on patient's age to complete this topic PNEUMOCOCCAL VACCINE Aged Out No long er eligible based on patient's age to complete this topic Insurance ANTHTALISHA CIG[employer] ANTHTALISHA Care Teams Middle School Teacher Relationship Specialty Start Date End Date Raffaele Desir MD [address] [facility] [address] [place] [address] PCP - General Pediatrics 03/10/18
--- OUTSIDE RECORDS SUMMARY | 2024-10-27 22:26 | XMS_ITS ---
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
--- OUTSIDE RECORDS SUMMARY | 2024-10-27 22:26 | XMS_ITS | Clinical Summary ---
Author Organization 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 Pt would like to start her OCP's again Problems Includes: Problems addressed during this encounter and other active Problems All Visits Onset Date Resolved Date Provider Condition S tatus Depression Recurrent 04/16/2021 BABAR COLVIN RN [facility] Active Last Documented On 04/16/2021 10:43AM ; [facility] Note: history of Common Migraine W/o Aura W/o Intractable Migraine W/o Status Migrainosus 02/20/2021 BABAR COLVIN RN [facility] Active Last Documented On 02/20/2021 11:55AM ; [facility] Note: Dr. Asher Bauer Family history of malignant neoplasm of breast 10/13/2018 BABAR COLVIN RN [facility] Active Last Documented On 10/13/2018 9:49AM ; [facility] Note: MGM in 50's ER+ MD+ HER 2 - Plan of Treatment - Clinical summary provided to patient - Last Documented On 06/16/2022 10:26AM ; [facility] PT TO CALL WITH ANY CHANGE IN STATUS ALL QUESTIONS ANSWERED WITH UNDERSTANDING VERBALIZED BY PT. - Last Documented On 06/16/2022 10:26AM ; [facility] RTC 1 YEAR - Last Documented On 06/16/2022 10:26AM ; [facility] Instructions to patient Instructions for patient : B reast Self Exam discussed and technique reviewed Last Documented On 2 10:24AM ; [facility] Use a condom during sexual i ntercourse Last Documented On 2 10:24AM ; [facility] Instructed to call if excess renata bleeding or abdominal/pelvic pain Last Documented On 2 10:24AM ; [facility] Recommend diet and exercise at least 30 min three times per week Last Documented On 2 10:24AM ; [facility] Education and Decision Aids were provided during visit for: Patient education RE: suzette g signals associated with hormonal contraceptive use including abdominal, chest, or leg pain, headaches or visual disturbances Last Documented On 2 10:24AM ; [facility] Patient Education: Daily anel cium and vitamin D Last Documented On 10:24AM ; [facility] Assessments Includes: Assessments from this encounter Findings - NORMAL FEMALE EXAM - Last Documented On 06/16/2022 10:26AM ; [facility] Instructions Includes: Instructions from this encounter Instructions to patient Instructions for patient : B reast Self Exam discussed and technique reviewed Last Documented On 2 10:24AM ; [facility] Use a condom during sexual i ntercourse Last Documented On 2 10:24AM ; [facility] Instructed to call if excess renata bleeding or abdominal/pelvic pain Last Documented On 10:24AM ; [facility] Recommend diet and exercise at least 30 min three times per week Last Documented On 2 10:24AM ; [facility] Education and Decision Aids were provided during visit for: Patient education RE: debn g signals associated with hormonal contraceptive use including abdominal, chest, or leg pain, headaches or visual disturbances Last Documented On 2 10:24AM ; [facility] Patient Education: Daily anel cium and vitamin D Last Documented On 10:24AM ; [facility] Medical Equipment - Implanted Devices Includes: Current Devices No Medical Equipment Recorded Medications Includes: Medications discussed during this encounter and other current Medications New / Renewed during this visit BABAR COLVIN RN NP BC on 06/16/2022 Norlyda 0.35 MG Oral Tablet Provider: BABAR COLVIN RN Jhonny P 84 day supply: 84 tablet, 3 refills Diagnosis: Encounter for contraceptive management, unspecified One tablet daily [facility], [id number] - Last Documented On 2 10:39AM By BABAR NOBLE ; [facility] Current Medications (continue as prescribed) Topiramate 25 MG Oral Tablet 04/16/2021 Provider: Diagnosis: Last Documented On 1 11:01AM By BABAR NOBLE ; [facility] FLUoxetine HCl 40 MG Oral Capsule 04/16/2021 Provide r: Diagnosis: Last Documented On 1 11:02AM By BABAR NOBLE ; [facility] Past Medications on file metroNIDAZOLE 0.75% Vaginal Gel 07/31/2021 - 08/05/2021 Provider: BABAR SCHAEFER Diagnosis: Acute vaginitis as directed 1 JADON PER VAGINA DAILY X 5 Last Documented On 2 8:16AM By BABAR NOBLE ; [facility] Fluconazole 150 MG Oral Tablet 07/28/2021 - 07/30/2021 Provider: BABAR SCHAEFER Diagnosis: Acute vaginitis 1 daily Pt. is to take 1 now and then repeat in 3 days Last Documented On 2 3:19PM By BABAR NOBLE ; [facility] levoFLOXacin 750 MG Oral Tablet 03/23/2021 - 03/30/2021 Provider: BABAR SCHAEFER Diagnosis: Acute vulvitis One tablet daily Last Documented On 1 8:49AM By BABAR NOBLE ; 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 BUM X 1 MONTH Last Documented On 9 3:04PM By BABAR NOBLE ; [facility] Aviane 0.1-20MG-MCG Oral Tablet 05/18/2018 - 03/22/2019 Provider: BABAR DELGADO Diagnosis: Dysmenorrhea, unspecified One tablet daily TAKE DIRECTED Last Documented On 8 3:52PM By BABAR NOBLE ; [facility] Medications Administered Includes: Administered Medications from this encounter No Administered Medications Recorded Vital Signs Includes: Vital Signs from this encounter Vital Name 06/16/2022 10:00A Blood Pressure Sitting L 110/70 BP Cuff Size Regular Temp-Temporal 98 Height (in) 64 Weight (lb) 135 Body Mass Index 23.2 Body Surface Area 1.7 Last Documented: On 06/16/2022 10:04A M ; [facility] Results Includes: Results discussed during this encounter No Results Recorded For Specified Dates History of Present Illness Includes: History of Present Illness from this encounter HPI - Allergy list reviewed - Medication list reviewed Social History Description Last Updated Alcohol use: 2 drinks or less per day no ne 06/16/2022 Last Documented On 2 10:26AM ; [facility] Current nonsmoker 06/16/2022 Last Documented On 2 10:26AM ; [facility] Education history 06/16/2022 Last Documented On 2 10:26AM ; [facility] Educational level senior [facility] 06/16/2022 Last Documented On 2 10:26AM ; [facility] Non-smoker 06/16/2022 Last Documented On 2 10:26AM ; [facility] Not a smoker 06/16/2022 Last Documented On 2 10:26AM ; [facility] Not using alcohol 06/16/2022 Last Documented On 2 10:26AM ; [facility] Not using drugs 06/16/2022 Last Documented On 2 10:26AM ; [facility] Personal history 06/16/2022 Last Documented On 2 10:26AM ; [facility] Sexually active 06/16/2022 Last Documented On 2 10:26AM ; [facility] Sexually active with 2 partners in the l ast year 06/16/2022 Last Documented On 2 10:26AM ; [facility] Single 06/16/2022 Last Documented On 2 10:26AM ; [facility] Social history unchanged 06/16/2022 Last Documented On 2 10:26AM ; [facility] Tobacco non-user 06/16/2022 Last Documented On 2 10:26AM ; [facility] Sexually active with 1 partners in the l ast year 06/16/2022 Last Documented On 2 10:26AM ; [facility] Smoking Status Unknown Procedures and Surgical History Includes: Procedures from this encounter Procedures Code Diagnosis Performing Provider Service L ocation Service Date education and instructions use BUM as directed with OCP restart Last Documented On 2 10:25AM ; [facility] explanation of plan Last Documented On 2 10:24AM ; [facility] evaluation of contraceptive history perf ormed Last Documented On 2 10:24AM ; [facility] education about contraception performed Last Documented On 2 10:24AM ; [facility] reporting of contraception complications performed Last Documented On 2 10:24AM ; [facility] Discussed Contraception Last Documented On 2 10:24AM ; [facility] Urged Exercise and Diet , exercise at le ast 30 min three times per week Last Documented On 2 10:24AM ; [facility] Surgical History Last Updated Surgical / procedural history Carriere martin th removal 02/16/2019 Last Documented On 2 10:00AM ; [facility] Medical History Includes: Medical History addressed during this encounter Description Last Updated Contraception: condoms sometimes, last u nprotected coitus 1 month ago 06/16/2022 Last Documented On 2 10:26AM ; [facility] Sexually active 1 Partner in the last ye ar, last unprotected a month ago 06/16/2022 Last Documented On 2 10:26AM ; [facility] LMP: 06/02/2022 Last unprotected 04/202106/16/2022 Last Documented On 2 10:26AM ; [facility] Primary Care Provider: Dr. 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 Family History Includes: Family History addressed during this encounter Description Last Updated Family history unchanged 02/20/2020 Last Documented On 2 10:00AM ; [facility] Maternal grandfather's history of diabet es mellitus mgf 02/20/2020 Last Documented On 2 10:00AM ; [facility] Maternal grandmother's histo ry of malignant female breast neoplasm materal grandmother and great grandmother 02/20/2020 Last Documented On 2 10:00AM ; [facility] Family history of malignant female breast neoplasm materal grandmother and great grandmother 02/16/2019 Last Documented On 2 10:00AM ; [facility] Maternal grandmother's history of diabet es mellitus maternal grandparents 02/15/2018 Last Documented On 2 10:00AM ; [facility] Review of Systems Includes: Review of Systems from this encounter Systemic: Not tiring easily. No fever, no chills, no unusual bleeding, no post coital bleeding, and no recent weight change. No pain. Head: No headache. Neck: No neck pain and no swollen glands in the neck. Eyes: No vision problems. Breasts: No breast symptoms, no breast lump, no nipple discharge, no pain in breast, and patient performs self breast exams. Cardiovascular: No chest pain or discomfort, no palpitations, and no varicosities. Pulmonary: No pulmonary symptoms, no dyspnea, no rapid breathing, no cough, and no wheezing. Gastrointestinal: No heartburn and no indigestion. No nausea, no vomiting, no abdominal pain, and no melena. No diarrhea and no constipation. Genitourinary: No hematuria, no change in urinary frequency, and no incomplete emptying of bladder. No dysuria. No genital lesion, no pain during intercourse, and no vaginal dryness. Normal menses and no menorrhagia. No dysmenorrhea. No nonmenstrual bleeding. No vaginal discharge. Endocrine: No polydipsia, no temperature intolerance, and libido has not changed. Hematologic: No blood clotting problems. Musculoskeletal: No muscle aches and no localized joint pain. Neurological: No dizziness. Psychological: No anxiety, no depression, no sleep disturbances, and a desire to continue living. Skin: No pruritus. No skin lesions and no rash. Mental Status Includes: Mental Status from this encounter Description Oriented to time, place, and person No anxiety A desire to continue living Functional Status Includes: Functional Status from this encounter No Functional Status Recorded Physical Exam Includes: Physical Exam from this encounter Allergies Includes: Active Allergies Substance Type Reaction Onset Date Resolved Date Statu s lactose Allergy 02/15/2018 Active Last Documented On 2 10:02AM ; [facility] Encounters Encounter Provider Location Date Check-In Time Check-Out Time Diagnosis WELL WOMAN - ESTABLISHED PT BABAR SCHAEFER [facility] 06/16/20 22 10:00AM 10:26AM Normal Female Exam Insurance Includes: Active Insurance Policies Plan Name Member ID Group # Subscriber Relationship Effect renata Dates 1 - [employer] [id number] SHARAD Barry TAYLOR Self 2 - [id number] RODRIGUEZ Child Clinical Notes Includes: Clinical Notes from this encounter No Clinical Notes Recorded
--- OUTSIDE RECORDS SUMMARY | 2024-10-27 22:27 | XMS_ITS | Clinical Summary ---
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 Asher Bauer Family history of malignant neoplasm of breast 10/13/2018 BABAR COLVIN RN [facility] Active Last Documented On 10/13/2018 9:49AM ; [facility] Note: MGM in 50's ER+ GA+ HER 2 - Plan of Treatment No Plan of Treatment Recorded Assessments Includes: Assessments from this encounter Findings - Vulvitis - Last Documented On 03/23/2021 8:49AM ; [facility] Medical Equipment - Implanted Devices Includes: Current Devices No Medical Equipment Recorded Medications Includes: Medications discussed during this encounter and other current Medications New / Renewed during this visit BABAR COLVIN RN [facility] on 03/23/2021 levoFLOXacin 750 MG Oral Tablet Provider: BABAR COLVIN RN [facility] 7 day supply: 7 tablet, 0 refills Diagnosis: Acute vulvitis One tablet daily Pharmacy: [address], [phone] - Last Documented On 1 8:49AM By BABAR NOBLE ; [facility] Current Medications (continue as prescribed) Topiramate 25 MG Oral Tablet 04/16/2021 Provider: Diagnosis: Last Documented On 1 11:01AM By BABAR NOBLE ; [facility] FLUoxetine HCl 40 MG Oral Capsule 04/16/2021 Provide r: Diagnosis: Last Documented On 1 11:02AM By BABAR NOBLE ; [facility] Past Medications on file Norlyda 0.35 MG Oral Tablet 06/16/2022 - 05/18/2023 Provider: BABAR DELGADO Diagnosis: Encounter for contraceptive management, unspecified One tablet daily Last Documented On 2 10:39AM By BABAR NOBLE ; [facility] metroNIDAZOLE 0.75% Vaginal Gel 07/31/2021 - 08/05/2021 Provider: BABAR DELGADO Diagnosis: Acute vaginitis as directed 1 JADON PER VAGINA DAILY X 5 Last Documented On 2 8:16AM By BABAR NOBLE ; [facility] Fluconazole 150 MG Oral Tablet 07/28/2021 - 07/30/2021 Provider: BABAR SCHAEFER Diagnosis: Acute vaginitis 1 daily Pt. 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 BUM X 1 MONTH Last Documented On 9 3:04PM By BABAR NOBLE ; [facility] Aviane 0.1-20MG-MCG Oral Tablet 05/18/2018 - 03/22/2019 Provider: BABAR COLVIN RN [facility] BC Diagnosis: Dysmenorrhea, unspecified One tablet daily TAKE DIRECTED Last Documented On 8 3:52PM By BABAR NOBLE ; [facility] Medications Administered Includes: Administered Medications from this encounter No Administered Medications Recorded Results Includes: Results discussed during this encounter No Results Recorded For Specified Dates History of Present Illness Includes: History of Present Illness from this encounter No History of Present Illness Recorded Social History No Social History Recorded - Smoking Status Unknown Procedures and Surgical History Surgical History Last Updated Surgical / procedural history Morral martin th removal 02/16/2019 Last Documented On 1 8:46AM ; [facility] Medical History Includes: Medical History addressed during this encounter Description Last Updated Contraception: condoms 06/16/2022 Last Documented On 1 8:46AM ; [facility] Sexually active 2 PARTNERS IN LAST YEAR 06/16/2022 Last Documented On 1 8:46AM ; [facility] LMP: 02/22/2021 06/16/2022 Last Documented On 1 8:46AM ; [facility] PRIMARY CARE PROVIDER : Dr Desir 2021 Last Documented On 1 8:46AM ; [facility] 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 Last Documented On 1 8:46AM ; [facility] No recent change in medical history 02/09 Last Documented On 1 8:46AM ; [facility] 0 05/18/2018 Last Documented On 1 8:46AM ; [facility] History of Gardasil all [address] Desir 02/15/2018 Last Documented On 1 8:46AM ; [facility] Family History Includes: Family History addressed during this encounter Description Last Updated Family history unchanged 02/20/2020 Last Documented On 1 8:46AM ; [facility] Maternal grandfather's history of diabet es mellitus mgf 02/20/2020 Last Documented On 1 8:46AM ; [facility] Maternal grandmother's histo ry of malignant female breast neoplasm materal grandmother and great grandmother 02/20/2020 Last Documented On 1 8:46AM ; [facility] Family history of malignant female breast neoplasm materal grandmother and great grandmother 02/16/2019 Last Documented On 1 8:46AM ; [facility] Maternal grandmother's history of diabet es mellitus maternal grandparents 02/15/2018 Last Documented On 1 8:46AM ; [facility] Review of Systems Includes: Review of Systems from this encounter No Review of Systems Recorded Mental Status Includes: Mental Status from this encounter No Mental Status Recorded Functional Status Includes: Functional Status from this encounter No Functional Status Recorded Physical Exam Includes: Physical Exam from this encounter No Physical Exam Recorded Allergies Includes: Active Allergies Substance Type Reaction Onset Date Resolved Date Statu s lactose Allergy 02/15/2018 Active Last Documented On 2 10:02AM ; [facility] Encounters Encounter Provider Location Date Check-In Time Check-Out Time Diagnosis CHART UPDATE BABAR COLVIN RN [facility] 03/23/2021 8:45AM 11:59PM Vulvitis Insurance Includes: Active Insurance Policies Plan Name Member ID Group # Subscriber Relationship Effect renata Dates 1 - [employer] [id number] [facility] [id number] [id number] Child Clinical Notes Includes: Clinical Notes from this encounter No Clinical Notes Recorded
--- OUTSIDE RECORDS SUMMARY | 2024-10-27 22:27 | XMS_ITS | Clinical Summary ---
Author Organization [facility] Address [address] [place] [address] Phone Care Team Providers Care Processing Operator Name Role Phone VAZQUEZ REY, KAVIN Shahram Unavailable [phone] Reason for Visit and Chief Complaint visit for: contraceptive management - The Chief Complaint is: Vaginal irritation that started a couple days ago Problems Includes: Problems addressed during this encounter and other active Problems All Visits Onset Date Resolved Date Provider Condition S tatus Depression Recurrent 04/16/2021 BABAR COLVIN RN [facility] Active Last Documented On 04/16/2021 10:43AM ; [facility] Note: 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 Asher Bauer Family history of malignant neoplasm of breast 10/13/2018 BABAR COLVIN RN [facility] Active Last Documented On 10/13/2018 9:49AM ; [facility] Note: MGM in 50's ER+ [place]+ HER 2 - Plan of Treatment Instructions to patient Instructions for patient : K eep the area around the vulva dry. Allow the area to have exposure to air. Avoid irritants such as fabric softeners and perfumed soaps.~ Last Documented On 2 3:04PM ; [facility] Education and Decision Aids were provided during visit for: Patient counseling : Use of contraceptives discussed in detail including rare occurrence of heart attack, stroke, and leg clots. Patient understands that smoking increases the risk of serious side effects with any steroid-based contraceptive method Last Documented On 2 3:13PM ; [facility] Assessments Includes: Assessments from this encounter Findings - Vaginitis - Last Documented On 07/28/2021 3:15PM ; [facility] - Encounter for contraceptive surveillance, unspecified - Last Documented On 07/28/2021 3:15PM ; [facility] Instructions Includes: Instructions from this encounter Instructions to patient Instructions for patient : K eep the area around the vulva dry. Allow the area to have exposure to air. Avoid irritants such as fabric softeners and perfumed soaps.~ Last Documented On 2 3:04PM ; [facility] Education and Decision Aids were provided during visit for: Patient counseling : Use of contraceptives discussed in detail including rare occurrence of heart attack, stroke, and leg clots. Patient understands that smoking increases the risk of serious side effects with any steroid-based contraceptive method Last Documented On 2 3:13PM ; [facility] Medical Equipment - Implanted Devices Includes: Current Devices No Medical Equipment Recorded Medications Includes: Medications discussed during this encounter and other current Medications New / Renewed during this visit BABAR SCHAEFER on 07/28/2021 Norlyda 0.35 MG Oral Tablet Provider: BABAR COLVIN RN Jhonny P 84 day supply: 84 tablet, 2 refills Diagnosis: Encounter for contraceptive management, unspecified One tablet daily Pharmacy: [facility]) - [address], [id number] - Last Documented On 2 10:23AM By BABAR SCHAEFER- ; [facility] Fluconazole 150 MG Oral Tablet Provider: BABAR SCHAEFER 2 day supply: 2 tablet, 0 refills Diagnosis: Acute vaginitis 1 daily Pt. is to take 1 now and then repeat in 3 days Pharmacy: [facility] - [address], [id number] - Last Documented On 2 3:19PM By BABAR NOBLE ; [facility] Current Medications (continue as prescribed) Topiramate 25 MG Oral Tablet 04/16/2021 Provider: Diagnosis: Last Documented On 1 11:01AM By BABAR NOBLE ; [facility] FLUoxetine HCl 40 MG Oral Capsule 04/16/2021 Provide r: Diagnosis: Last Documented On 1 11:02AM By BABAR NOBLE ; [facility] Past Medications on file Norlyda 0.35 MG Oral Tablet 06/16/2022 - 05/18/2023 Provider: BABAR SCHAEFER Diagnosis: Encounter for contraceptive management, unspecified One tablet daily Last Documented On 2 10:39AM By BABAR NOBLE ; [facility] metroNIDAZOLE 0.75% Vaginal Gel 07/31/2021 - 08/05/2021 Provider: BABAR SCHAEFER Diagnosis: Acute vaginitis as directed 1 JADON PER VAGINA DAILY X 5 Last Documented On 2 8:16AM By BABAR NOBLE ; [facility] levoFLOXacin 750 MG Oral Tablet 03/23/2021 - 03/30/2021 Provider: BABAR SCHAEFER Diagnosis: Acute vulvitis One tablet daily Last Documented On 1 8:49AM By BABAR NOBLE ; [facility] Azithromycin 500 MG Oral Tablet 02/23/2021 - 02/24/2021 Provider: BABAR SCHAEFER Diagnosis: 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 BUM X 1 MONTH Last Documented On 9 3:04PM By BABAR ONBLE ; [facility] Aviane 0.1-20MG-MCG Oral Tablet 05/18/2018 - 03/22/2019 Provider: BABAR COLVIN RN [facility] Diagnosis: Dysmenorrhea, unspecified One tablet daily TAKE DIRECTED Last Documented On 8 3:52PM By BABAR NOBLE ; [facility] Medications Administered Includes: Administered Medications from this encounter No Administered Medications Recorded Vital Signs Includes: Vital Signs from this encounter Vital Name 07/28/2021 02:58P Blood Pressure Sitting L 106/64 BP Cuff Size Regular Temp-Oral (F) 98.3 Height (in) 64 Weight (lb) 134 Body Mass Index (kg/m2) 23.0 BMI Percentile (percentile) 62 Body Surface Area (m2) 1.6 Last Documented: On 07/28/2021 3:00PM ; [facility] Results Includes: Results discussed during this encounter No Results Recorded For Specified Dates History of Present Illness Includes: History of Present Illness from this encounter HPI The patient presents for contraceptive management. See details below. The patient presents with the following symptoms: - Allergy list reviewed - Medication list reviewed - Feeling fine - No headache - No breast symptoms - No bloating - No jaundice - Vulvar itching or burning x several days, no rx to date. Partner has no sx., last unprotected coitus 05/01. Pt declines STD serology today - Vaginal itching or burning - Normal menses Social History No Social History Recorded - Smoking Status Unknown Procedures and Surgical History Includes: Procedures from this encounter Procedures Code Diagnosis Performing Provider Service L ocation Service Date education and instructions Last Documented On 2 3:13PM ; [facility] Clinical summary provided to patient Last Documented On 2 3:13PM ; [facility] Surgical History Last Updated Surgical / procedural history [place] martin th removal 02/16/2019 Last Documented On 2 2:57PM ; [facility] Medical History Includes: Medical History addressed during this encounter Description Last Updated Contraception: [id number] 06/16/2022 Last Documented On 2 2:57PM ; [facility] Sexually active 2 PARTNERS IN LAST YEAR 06/16/2022 Last Documented On 2 2:57PM ; [facility] Primary Care Provider: Dr Desir and Dr. 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 Last Documented On 2 2:57PM ; [facility] No recent change in medical history 02/09 Last Documented On 2 2:57PM ; [facility] 0 05/18/2018 Last Documented On 2 2:57PM ; [facility] History of Gardasil all [address] Desir 02/15/2018 Last Documented On 2 2:57PM ; [facility] Family History Includes: Family History addressed during this encounter Description Last Updated Family history unchanged 02/20/2020 Last Documented On 2 2:57PM ; [facility] Maternal grandfather's history of diabet es mellitus mgf 02/20/2020 Last Documented On 2 2:57PM ; [facility] Maternal grandmother's histo ry of malignant female breast neoplasm materal grandmother and great grandmother 02/20/2020 Last Documented On 2 2:57PM ; [facility] Family history of malignant female breast neoplasm materal grandmother and great grandmother 02/16/2019 Last Documented On 2 2:57PM ; [facility] Maternal grandmother's history of diabet es mellitus maternal grandparents 02/15/2018 Last Documented On 2 2:57PM ; [facility] Review of Systems Includes: Review of Systems from this encounter Systemic: No fever and no chills. Head: No headache. Eyes: No vision problems. Cardiovascular: No chest pain or discomfort. Pulmonary: No dyspnea. Gastrointestinal: No nausea, no vomiting, and no abdominal pain. Genitourinary: No vaginal odor and no pain during intercourse. No vaginal discharge. Skin: No skin lesions and no rash. DENIES ARM OR LEG PAIN ON HORMONAL CONTRACEPTION. Mental Status Includes: Mental Status from this encounter No Mental Status Recorded Functional Status Includes: Functional Status from this encounter No Functional Status Recorded Physical Exam Includes: Physical Exam from this encounter Allergies Includes: Active Allergies Substance Type Reaction Onset Date Resolved Date Statu s lactose Allergy 02/15/2018 Active Last Documented On 2 10:02AM ; [facility] Encounters Encounter Provider Location Date Check-In Time Check-Out Time Diagnosis PROBLEM VISIT BABAR COLVIN RN [facility] 07/28/19 22 2:53PM 3:12PM Encounter For Contraceptive Surveillance, Unspecified,Vagi nitis Insurance Includes: Active Insurance Policies Plan Name Member ID Group # Subscriber Relationship Effect renata Dates 1 - [employer] [id number] SHARAD TAYLOR Self 2 - [facility] [id number] YANEZ Child Clinical Notes Includes: Clinical Notes from this encounter No Clinical Notes Recorded
--- OUTSIDE RECORDS SUMMARY | 2024-10-27 22:27 | XMS_ITS ---
Author Organization [facility] Address [address] [place] [address] Phone Care Team Providers Care Podiatry Assistant Name Role Phone VAZQUEZ REY, KAVIN Omalley Unavailable [phone] Problems Includes: Active, inactive, and resolved Problems All Visits Onset Date Resolved Date Provider Condition S tatus Depression Recurrent 04/16/2021 BABAR COLVIN RN 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 Active Last Documented On 02/20/2021 11:55AM ; [facility] Note: Dr. Asher Bauer Family history of malignant neoplasm of breast 10/13/2018 BABAR COLVIN RN 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 02/20/2020 Last Documented On 0 3:01PM ; [facility] Ordered Clinical summary pro vided to patient CHEMICAL ENGINEERING INTERN EXAM with BABAR COLVIN RN [facility] 02/16/2019 Last Documented On 9 3:06PM ; [facility] Ordered Clinical summary pro vided to patient NEW CHEMICAL ENGINEERING INTERN EXAM with BABAR COLVIN RN HEATHER 02/15/2018 Last Documented On 8 10:45AM ; [facility] Instructions to patient Instructions for patient : B reast Self Exam discussed and technique reviewed Last Documented On 2 10:24AM ; [facility] Use a condom during sexual i ntercourse Last Documented On 2 10:24AM ; [facility] Instructed to call if excess renata bleeding or abdominal/pelvic pain Last Documented On 2 10:24AM ; [facility] Recommend diet and exercise at least 30 min three times per week Last Documented On 2 10:24AM ; [facility] Instructions for patient : K eep the area around the vulva dry. Allow the area to have exposure to air. Avoid irritants such as fabric softeners and perfumed soaps.~ Last Documented On 2 3:04PM ; [facility] Return to the clinic if cond ition worsens or new symptoms arise Last Documented On 1 9:16AM ; [facility] Instructions for patient : B reast Self Exam discussed and technique reviewed Last Documented On 1 11:55AM ; [facility] Use a condom during sexual i ntercourse Last Documented On 1 11:55AM ; [facility] Instructed to call if excess renata bleeding or abdominal/pelvic pain Last Documented On 1 11:55AM ; [facility] Recommend diet and exercise at least 30 min three times per week Last Documented On 1 11:55AM ; [facility] Instructions for patient : B reast Self Exam discussed and technique reviewed Last Documented On 0 2:45PM ; [facility] Use a condom during sexual i ntercourse Last Documented On 0 2:45PM ; [facility] Instructed to call if excess renata bleeding or abdominal/pelvic pain Last Documented On 0 2:45PM ; [facility] Recommend diet and exercise at least 30 min three times per week Last Documented On 0 2:45PM ; [facility] Instructions for patient : B reast Self Exam discussed and technique reviewed Last Documented On 9 2:33PM ; [facility] Use a condom during sexual i ntercourse Last Documented On 9 2:34PM ; [facility] Instructed to call if excess renata bleeding or abdominal/pelvic pain Last Documented On 9 2:33PM ; [facility] Recommend diet and exercise at least 30 min three times per week Last Documented On 9 2:33PM ; [facility] Instructions for patient : B reast Self Exam discussed and technique reviewed Last Documented On 8 10:39AM ; [facility] Instructed to call if excess renata bleeding or abdominal/pelvic pain Last Documented On 8 10:39AM ; [facility] Recommend diet and exercise at least 30 min three times per week Last Documented On 8 10:39AM ; [facility] Education and Decision Aids were provided during visit for: Patient education RE: suzette oseguera signals associated with hormonal contraceptive use including abdominal, chest, or leg pain, headaches or visual disturbances Last Documented On 2 10:24AM ; [facility] Patient Education: Daily anel cium and vitamin D Last Documented On 2 10:24AM ; [facility] Patient counseling : Use of contraceptives discussed in detail including rare occurrence of heart attack, stroke, and leg clots. Patient understands that smoking increases the risk of serious side effects with any steroid-based contraceptive method Last Documented On 2 3:13PM ; [facility] Inquiry and counseling about contraceptive practices Last Documented On 1 10:58AM ; [facility] Patient education :to consid er skin punch bx. of genital depigmentation after culture results review Last Documented On 1 9:16AM ; [facility] Patient counseling : STD pre vention. I discussed with the patient that condoms can reduce the chance of getting an STD but not eliminate it. Increased exposure from multiple sex partners also discussed Last Documented On 1 9:16AM ; [facility] Patient Education: Daily anel cium and vitamin D Last Documented On 1 11:55AM ; [facility] Discussed smoking and drug u se Last Documented On 0 2:45PM ; [facility] Patient education RE: debtwin oumar signals associated with hormonal contraceptive use including abdominal, chest, or leg pain, headaches or visual disturbances Last Documented On 0 2:45PM ; [facility] Patient Education: Daily anel cium and vitamin D Last Documented On 0 2:45PM ; [facility] Patient counseling : Use of contraceptives discussed in detail including rare occurrence of heart attack, stroke, and leg clots. Patient understands that smoking increases the risk of serious side effects with any steroid-based contraceptive method Last Documented On 9 2:57PM ; [facility] Discussed smoking and drug u se Last Documented On 9 2:33PM ; [facility] Discussed risk-taking behavi or Last Documented On 9 2:33PM ; [facility] Patient education RE: suzette g signals associated with hormonal contraceptive use including abdominal, chest, or leg pain, headaches or visual disturbances Last Documented On 9 2:33PM ; [facility] Patient Education: Daily anel cium and vitamin D Last Documented On 9 2:33PM ; [facility] Patient counseling : Use of contraceptives discussed in detail including rare occurrence of heart attack, stroke, and leg clots. Patient understands that smoking increases the risk of serious side effects with any steroid-based contraceptive method Last Documented On 8 3:49PM ; [facility] Patient education RE: suzette g signals associated with hormonal contraceptive use including abdominal, chest, or leg pain, headaches or visual disturbances Last Documented On 8 10:39AM ; [facility] Patient Education: Daily anel cium and vitamin D Last Documented On 8 10:39AM ; [facility] control consent review ed and signed Last Documented On 8 10:39AM ; [facility] Assessments Includes: Assessments for all patient encounters Findings Encounter Date NORMAL FEMALE EXAM WELL WOMAN - ESTABLI SHED PT with BABAR COLVIN RN [facility] 06/16/2022 Last Documented On 2 10:26AM ; [facility] Vaginitis CHART UPDATE with BABAR COLVIN RN [facility]ATH[facility] 07/31/2021 Last Documented On 2 8:06AM ; [facility] Encounter for contraceptive surveillance, unspecified PROBLEM VISIT with BABAR COLVIN RN [facility] 07/28/2021 Last Documented On 2 3:15PM ; [facility] Vaginitis PROBLEM VISIT with BABAR COLVIN RN [facility] 07/28/2021 Last Documented On 2 3:15PM ; [facility] Contraceptive management: in itiate contraception FOLLOW UP with BABAR COLVIN RN [facility]ATH[facility] 04/16/2021 Last Documented On 1 11:06AM ; [facility] Vulvitis CHART UPDATE with BABAR CLOVIN RN [facility] 03/23/2021 Last Documented On 1 8:49AM ; [facility] Primary vitiligo vs. 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 02/23/2021 Last Documented On 1 12:58PM ; [facility] NORMAL FEMALE EXAM WELL WOMAN - ESTABLI SHED PT with BABAR COLVIN RN [facility] 02/20/2021 Last Documented On 1 12:02PM ; [facility] NORMAL FEMALE EXAM CHEMICAL ENGINEERING INTERN EXAM with BABAR Barry HEATHER 02/20/2020 Last Documented On 0 3:01PM ; [facility] Encounter for contraceptive surveillance, unspecified 3 MONTH CHECK with BABAR COLVIN RN [facility] 07/06/2019 Last Documented On 9 3:01PM ; [facility] Dysmenorrhea CHEMICAL ENGINEERING INTERN EXAM with BABAR COLVIN RN [facility] 02/16/2019 Last Documented On 9 3:06PM ; [facility] NORMAL FEMALE EXAM CHEMICAL ENGINEERING INTERN EXAM with BABAR Barry [facility] 02/16/2019 Last Documented On 9 3:06PM ; [facility] Encounter for contraceptive surveillance, unspecified 3 MONTH CHECK with BABAR COLVIN RN [facility] 05/18/2018 Last Documented On 8 3:50PM ; [facility] Dysmenorrhea NEW 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 02/15/2018 Last Documented On 8 10:45AM ; [facility] NORMAL FEMALE EXAM NEW CHEMICAL ENGINEERING INTERN EXAM with BABAR PARIKH RN [facility] 02/15/2018 Last Documented On 8 10:45AM ; [facility] Instructions Includes: Instructions for all patient encounters Instructions to patient Instructions for patient : B reast Self Exam discussed and technique reviewed Last Documented On 2 10:24AM ; [facility] Use a condom during sexual i ntercourse Last Documented On 2 10:24AM ; [facility] Instructed to call if excess renata bleeding or abdominal/pelvic pain Last Documented On 2 10:24AM ; [facility] Recommend diet and exercise at least 30 min three times per week Last Documented On 2 10:24AM ; [facility] Instructions for patient : K eep the area around the vulva dry. Allow the area to have exposure to air. Avoid irritants such as fabric softeners and perfumed soaps.~ Last Documented On 2 3:04PM ; [facility] Return to the clinic if cond ition worsens or new symptoms arise Last Documented On 1 9:16AM ; [facility] Instructions for patient : B reast Self Exam discussed and technique reviewed Last Documented On 1 11:55AM ; [facility] Use a condom during sexual i ntercourse Last Documented On 1 11:55AM ; [facility] Instructed to call if excess renata bleeding or abdominal/pelvic pain Last Documented On 1 11:55AM ; [facility] Recommend diet and exercise at least 30 min three times per week Last Documented On 1 11:55AM ; [facility] Instructions for patient : B reast Self Exam discussed and technique reviewed Last Documented On 0 2:45PM ; [facility] Use a condom during sexual i ntercourse Last Documented On 0 2:45PM ; [facility] Instructed to call if excess renata bleeding or abdominal/pelvic pain Last Documented On 0 2:45PM ; [facility] Recommend diet and exercise at least 30 min three times per week Last Documented On 0 2:45PM ; [facility] Instructions for patient : B reast Self Exam discussed and technique reviewed Last Documented On 9 2:33PM ; [facility] Use a condom during sexual i ntercourse Last Documented On 9 2:34PM ; [facility] Instructed to call if excess renata bleeding or abdominal/pelvic pain Last Documented On 9 2:33PM ; [facility] Recommend diet and exercise at least 30 min three times per week Last Documented On 9 2:33PM ; [facility] Instructions for patient : B reast Self Exam discussed and technique reviewed Last Documented On 8 10:39AM ; [facility] Instructed to call if excess renata bleeding or abdominal/pelvic pain Last Documented On 8 10:39AM ; [facility] Recommend diet and exercise at least 30 min three times per week Last Documented On 8 10:39AM ; [facility] Education and Decision Aids were provided during visit for: Patient education RE: suzette oseguera signals associated with hormonal contraceptive use including abdominal, chest, or leg pain, headaches or visual disturbances Last Documented On 2 10:24AM ; [facility] Patient Education: Daily anel cium and vitamin D Last Documented On 2 10:24AM ; [facility] Patient counseling : Use of contraceptives discussed in detail including rare occurrence of heart attack, stroke, and leg clots. Patient understands that smoking increases the risk of serious side effects with any steroid-based contraceptive method Last Documented On 2 3:13PM ; [facility] Inquiry and counseling about contraceptive practices Last Documented On 1 10:58AM ; [facility] Patient education :to consid er skin punch bx. of genital depigmentation after culture results review Last Documented On 1 9:16AM ; [facility] Patient counseling : STD pre vention. I discussed with the patient that condoms can reduce the chance of getting an STD but not eliminate it. Increased exposure from multiple sex partners also discussed Last Documented On 1 9:16AM ; [facility] Patient Education: Daily anel cium and vitamin D Last Documented On 1 11:55AM ; [facility] Discussed smoking and drug u se Last Documented On 0 2:45PM ; [facility] Patient education RE: suzette oseguera signals associated with hormonal contraceptive use including abdominal, chest, or leg pain, headaches or visual disturbances Last Documented On 0 2:45PM ; [facility] Patient Education: Daily anel cium and vitamin D Last Documented On 0 2:45PM ; [facility] Patient counseling : Use of contraceptives discussed in detail including rare occurrence of heart attack, stroke, and leg clots. Patient understands that smoking increases the risk of serious side effects with any steroid-based contraceptive method Last Documented On 9 2:57PM ; [facility] Discussed smoking and drug u se Last Documented On 9 2:33PM ; [facility] Discussed risk-taking behavi or Last Documented On 9 2:33PM ; [facility] Patient education RE: suzette g signals associated with hormonal contraceptive use including abdominal, chest, or leg pain, headaches or visual disturbances Last Documented On 9 2:33PM ; [facility] Patient Education: Daily anel cium and vitamin D Last Documented On 9 2:33PM ; [facility] Patient counseling : Use of contraceptives discussed in detail including rare occurrence of heart attack, stroke, and leg clots. Patient understands that smoking increases the risk of serious side effects with any steroid-based contraceptive method Last Documented On 8 3:49PM ; [facility] Patient education RE: warnin g signals associated with hormonal contraceptive use including abdominal, chest, or leg pain, headaches or visual disturbances Last Documented On 8 10:39AM ; [facility] Patient Education: Daily anel cium and vitamin D Last Documented On 8 10:39AM ; [facility] control consent review ed and signed Last Documented On 8 10:39AM ; [facility] Medical Equipment - Implanted Devices Includes: Current and historical Devices No Medical Equipment Recorded Medications Includes: Current and historical Medications Current Medications (continue as prescribed) Topiramate 25 MG Oral Tablet 04/16/2021 Provider: Diagnosis: Last Documented On 1 11:01AM By BABAR NOBLE ; [facility] FLUoxetine HCl 40 MG Oral Capsule 04/16/2021 Provide r: Diagnosis: Last Documented On 1 11:02AM By BABAR NOBLE ; [facility] Past Medications on file Norlyda 0.35 MG Oral Tablet 06/16/2022 - 05/18/2023 Provider: BABAR DELGADO Diagnosis: Encounter for contraceptive management, unspecified One tablet daily Last Documented On 2 10:39AM By BABAR NOBLE ; [facility] metroNIDAZOLE 0.75% Vaginal Gel 07/31/2021 - 08/05/2021 Provider: BABAR DELGADO Diagnosis: Acute vaginitis as directed 1 JADON PER VAGINA DAILY X 5 Last Documented On 2 8:16AM By BABAR NOBLE ; [facility] Norlyda 0.35 MG Oral Tablet 07/28/2021 - 06/16/2022 Provider: BABAR DELGADO Diagnosis: Encounter for contraceptive management, unspecified One tablet daily Last Documented On 2 10:23AM By BABAR NOBLE ; [facility] Fluconazole 150 MG Oral Tablet 07/28/2021 - 07/30/2021 Provider: BABAR DELGADO Diagnosis: Acute vaginitis 1 daily Pt. is to take 1 now and then repeat in 3 days Last Documented On 2 3:19PM By BABAR NOBLE ; [facility] Norlyda 0.35 MG Oral Tablet 07/14/2021 - 07/28/2021 Provider: BABAR COLVIN RN [facility] Diagnosis: Encounter for contraceptive management, unspecified TAKE 1 TABLET BY MOUTH DAILY . START PILLS THE FIRST WEDNESDAY AFTER NEXT MENSES BEGINS. FINISH ALL PILLS IN PACK AND BACK FIRST CYCLE. Last Documented On 2 3:02PM By BABAR NOBLE ; [facility] Debra 0.35 MG Oral Tablet 04/16/2021 - 07/14/2021 Provider: BABAR COLVIN RN [facility] Diagnosis: Encounter for contraceptive management, unspecified 1 daily START PILLS THE T WEDNESDAY AFTER NEXT MENSES BEGINS FINISH ALL PILLS IN PACK and back first cycle Last Documented On 2 3:50PM By BABAR NOBLE ; [facility] levoFLOXacin 750 MG Oral Tablet 03/23/2021 - 03/30/2021 Provider: BABAR COLVIN RN [facility] Diagnosis: Acute vulvitis One tablet daily Last Documented On 1 8:49AM By BABAR NOBLE ; [facility] Azithromycin 500 MG Oral Tablet 02/23/2021 - 02/24/2021 Provider: BABAR COLVIN RN [facility] Diagnosis: 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 as directed 2 TABLETS NOW Last Documented On 1 12:58PM By BABAR NOBLE ; [facility] Condoms Miscellaneous 02/20/2021 - 03/28/2021 Provider: BABAR COLVIN RN [facility] Diagnosis: Encounter for in itial prescription of other contraceptives as directed Last Documented On 1 12:00PM By BABAR NOBLE ; [facility] Lo Loestrin Fe 1 MG-10 MCG / 10 MCG Oral Tablet 01/10/2021 - 02/20/2021 Provider: BABAR COLVIN RN [facility] Diagnosis: sample pack dispensed Lot# [id number] Exp 04/2021......01/10/21 Last Documented On 11:55AM By BABAR NOBLE ; [facility] Lo Loestrin Fe 1 MG-10 MCG / 10 MCG Oral Tablet 01/01/2021 - 02/20/2021 Provider: BABAR COLVIN RN [facility] Diagnosis: Dysmenorrhea, unspecified TAKE 1 TABLET BY MOUTH DAILY Last Documented On 1 11:55AM By BABAR SANCHEZ ; [facility] FLUoxetine HCl 20 MG Oral Tablet 02/20/2020 - 04/16/20 Provider: Diagnosis: Last Documented On 1 11:01AM By BABAR SANCHEZ ; [facility] Lo Loestrin Fe 1 MG-10 MCG / 10 MCG Oral Tablet 02/20/2020 - 01/01/2021 Provider: BABAR COLVIN RN [facility] Diagnosis: Dysmenorrhea, unspecified One tablet daily Last Documented On 1 9:04AM By BABAR SANCHEZ ; [facility] Lo Loestrin Fe 1 MG-10 MCG / 10 MCG Oral Tablet 07/06/2019 - 02/20/2020 Provider: BABAR COLVIN RN [facility] Diagnosis: Dysmenorrhea, unspecified One tablet daily Last Documented On 0 3:00PM By BABAR SANCHEZ ; [facility] Lo Loestrin Fe 1 MG-10 MCG / 10 MCG Oral Tablet 05/31/2019 - 07/06/2019 Provider: BABAR COLVIN RN [facility] Diagnosis: Dysmenorrhea, unspecified as directed TAKE DIRECTED DAILY W/FOOD Last Documented On 9 2:59PM By BABAR NOBLE ; [facility] Lo Loestrin Fe 1 MG-10 MCG / 10 MCG Oral Tablet 04/07/2019 - 05/31/2019 Provider: BABAR COLVIN RN [facility] Diagnosis: Dysmenorrhea, unspecified as directed TAKE DIRECTED DAILY W/FOOD Last Documented On 9 2:07PM By BABAR SANCHEZ ; [facility] Lo Loestrin Fe 1 MG-10 MCG /10 MCG Oral Tablet 02/16/2019 - 03/16/2019 Provider: BABAR COLVIN RN [facility] Diagnosis: Dysmenorrhea, unspecified One tablet daily PUNCH OUT F IRST 4 TABLETS AND START PACK TODAY. BUM X 1 MONTH Last Documented On 9 3:04PM By BABAR SANCHEZ ; [facility] Lo Loestrin Fe 1 MG-10 MCG /10 MCG Oral Tablet 02/16/2019 - 04/07/2019 Provider: BABAR COLVIN RN HEATHER Diagnosis: Dysmenorrhea, unspecified as directed TAKE DIRECTED DAILY W/FOOD Last Documented On 9 12:04PM By BABAR SANCHEZ ; [facility] Aviane 0.1-20MG-MCG Oral Tablet 05/18/2018 - 03/22/2019 Provider: BABAR COLVIN RN HEATHER Diagnosis: Dysmenorrhea, unspecified One tablet daily TAKE DIRECTED Last Documented On 8 3:52PM By BABAR SANCHEZ ; [facility] Aviane 0.1-20MG-MCG Oral Tablet 04/29/2018 - 05/18/2018 Provider: BABAR COLVIN RN HEATHER Diagnosis: Dysmenorrhea, unspecified One tablet daily TAKE DIRECTED Last Documented On 8 3:49PM By BABAR SANCHEZ ; [facility] Aviane 0.1-20MG-MCG Oral Tablet 02/15/2018 - 04/29/2018 Provider: BABAR COLVIN RN HEATHER Diagnosis: Dysmenorrhea, unspecified One tablet daily TAKE DIRECTED Last Documented On 8 3:45PM By BABAR SANCHEZ ; [facility] Medications Administered Includes: Administered Medications in patient's chart No Administered Medications Recorded Results Includes: Results from 10/28/2023 through 10/27/2024 No Results Recorded For Specified Dates History of Present Illness History of Present Illness not supported for this document type No History of Present Illness Recorded Social History Description Last Updated Alcohol use: 2 drinks or less per day no ne 06/16/2022 Last Documented On 2 10:26AM ; [facility] Current nonsmoker 06/16/2022 Last Documented On 2 10:26AM ; [facility] Education history 06/16/2022 Last Documented On 2 10:26AM ; [facility] Educational level senior [place] Hi gh 06/16/2022 Last Documented On 2 10:26AM ; [facility] Non-smoker 06/16/2022 Last Documented On 2 10:26AM ; [facility] Not a smoker 06/16/2022 Last Documented On 2 10:26AM ; [facility] Not using alcohol 06/16/2022 Last Documented On 2 10:26AM ; [facility] Not using drugs 06/16/2022 Last Documented On 2 10:26AM ; [facility] Personal history 06/16/2022 Last Documented On 2 10:26AM ; [facility] Sexually active 06/16/2022 Last Documented On 2 10:26AM ; [facility] Single 06/16/2022 Last Documented On 2 10:26AM ; [facility] Social history unchanged 06/16/2022 Last Documented On 2 10:26AM ; [facility] Tobacco non-user 06/16/2022 Last Documented On 2 10:26AM ; [facility] Sexually active with 1 partners in the l ast year 06/16/2022 Last Documented On 2 10:26AM ; [facility] Smoking Status Unknown Procedures and Surgical History Surgical History Last Updated Surgical / procedural history [place] martin th removal 02/16/2019 Last Documented On 9 3:06PM ; [facility] Medical History Includes: Medical History in patient's chart Description Last Updated Contraception: condoms sometimes, last u nprotected coitus 1 month ago 06/16/2022 Last Documented On 2 10:26AM ; [facility] Sexually active 1 Partner in the last ye ar, last unprotected a month ago 06/16/2022 Last Documented On 2 10:26AM ; [facility] LMP: 06/02/2022 Last unprotected 04/202106/16/2022 Last Documented On 2 10:26AM ; [facility] Primary Care Provider: Dr. Sterling 12/2021 Last Documented On 2 10:26AM ; [facility] History of vaginitis 07/28/2021 Last Documented On 2 3:15PM ; [facility] 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 Last Documented On 1 9:18AM ; [facility] No recent change in medical history 02/09 Last Documented On 0 3:01PM ; [facility] 0 05/18/2018 Last Documented On 8 3:50PM ; [facility] History of Gardasil all [address] Desir 02/15/2018 Last Documented On 8 10:45AM ; [facility] Family History Includes: Family History in patient's chart Description Last Updated Family history unchanged 02/20/2020 Last Documented On 0 3:01PM ; [facility] Maternal grandfather's history of diabet es mellitus mgf 02/20/2020 Last Documented On 0 3:01PM ; [facility] Maternal grandmother's histo ry of malignant female breast neoplasm materal grandmother and great grandmother 02/20/2020 Last Documented On 0 3:01PM ; [facility] Family history of malignant female breast neoplasm materal grandmother and great grandmother 02/16/2019 Last Documented On 9 3:06PM ; [facility] Maternal grandmother's history of diabet es mellitus maternal grandparents 02/15/2018 Last Documented On 8 10:45AM ; [facility] Review of Systems Review of Systems not supported for this document type No Review of Systems Recorded Mental Status Description Oriented to time, place, and person No anxiety A desire to continue living Functional Status No Functional Status Recorded Physical Exam Physical Exam not supported for this document type No Physical Exam Recorded Allergies Includes: Active, inactive, and resolved Allergies Substance Type Reaction Onset Date Resolved Date Statu s lactose Allergy 02/15/2018 Active Last Documented On 2 10:02AM ; [facility] Insurance Includes: Active Insurance Policies Plan Name Member ID Group # Subscriber Relationship Effect renata Dates 1 - [employer] [id number] SHARAD TAYLOR Self 2 - [facility] [id number] YANEZ Child Clinical Notes Includes: Signed Clinical Notes starting from 07/31/2022 No Clinical Notes Recorded
--- OUTSIDE RECORDS SUMMARY | 2024-10-27 22:27 | XMS_ITS | Clinical Summary ---
Author Organization [facility] Address [address] [place] [id number] Care Team Providers Care Financial Underwriter Name Role Phone Oscar Sterling MD Primary Care Provider [phone] Allergies No known active allergies Medications Norethin-Eth Estrad-Fe Biphas (LO LOESTRIN FE OR)Indications: 28 tablest/months Indications: 28 tablest/michelle hs Active topiramate 25 MG tablet Take 25 mg by mouth daily. Active SUMAtriptan 50 MG tablet Take 50 mg by mouth 2 (two) times daily as needed for Migraine. Max of 4 tablets (200 mg) in 24 hours. Active FLUoxetine 20 MG capsule Take 20 mg by mouth daily. Active Social History Tobacco Use Types Packs/Day Years Used Date Smoking Tobacco: Never Smokeless Tobacco: Never Alcohol Use Standard Drinks/Week Comments No 0 (1 standard drink = 0.6 oz pur e alcohol) AUDIT-C Answer Date Recorded Frequency of Alcohol Consumption Never 05/11/2019 Average Number of Drinks Not on file 019 Frequency of Binge Drinking Not on file 04/13 Comments No Sex and Gender Information Value Date Recorded Sex Assigned at Not on file Legal Sex Female 8:22 PM CDT Gender Identity Not on file Sexual Orientation Not on file Last Filed Vital Signs Vital Sign Reading Time Taken Comments Blood Pressure 100/65 11/28/2021 8:14 PM CDT Pulse 89 11/28/2021 8:14 PM CDT Temperature 36.4 C (97.5 F) 11/28/2021 8:14 PM CDT Respiratory Rate 18 11/28/2021 8:14 PM CDT Oxygen Saturation 98% 11/28/2021 8:14 PM CDT Inhaled Oxygen Concentration - - Weight 60.8 kg (134 lb) 11/28/2021 8:14 PM CDT Height 162.6 cm (5' 4 ) 11/28/2021 8:14 PM CDT Body Mass Index 23 11/28/2021 8:14 PM CDT Plan of Treatment Health Maintenance Due Date Last Done Comments Cervical Cancer Screening Pa p Smear (Age 21 to 29) Every 3 Years 2002 Cervical Cancer Screening 2002 Annual Physical 2005 HPV Vaccines (1 - 3-dose series) 2017 Meningococcal B Vaccine (1 o f 2 - Standard) 2018 Hepatitis C 01/25/2020 DTaP, Tdap and Td Vaccines ( 1 - Tdap) 2021 Hepatitis B Vaccines (1 of 3 - 19+ 3-dose series) 2021 COVID-19 Vaccine (3 - 2023-2 5 season) 2024 11/21/2020, 10/26/2020 Meningococcal Vaccine Aged Out No bennett shawanda eligible based on patient's age to complete this topic Pneumococcal Vaccine: Pediatrics (0 to 5 Years) and At-Risk Patients (6 to 49 Years) Aged Out No longer eligible b ased on patient's age to complete this topic RSV Immunizations Under 20 Months Aged Out No longer eligible b ased on patient's age to complete this topic Insurance [facility] Care Teams Financial Underwriter Relationship Specialty Start Date End Date Oscar Sterling MD PCP - General FAMILY PRACTICE 05/19/21
--- OUTSIDE RECORDS SUMMARY | 2024-10-27 22:27 | XMS_ITS | Clinical Summary ---
Author Organization [facility] Address [address] [place] [address] Phone Care Team Providers Care Railroad Carman Name Role Phone VAZQUEZ REY, KAVIN Omalley Unavailable [phone] Reason for Visit and Chief Complaint visit for: contraceptive management - The Chief Complaint is: C/o pt wants discuss control options Problems Includes: Problems addressed during this encounter and other active Problems Current Visit Onset Date Resolved Date Provider Conditio n Status Depression Recurrent 04/16/2021 BABAR COLVIN RN [facility] Active Last Documented On 04/16/2021 10:43AM ; [facility] Note: history of Past Visits Onset Date Resolved Date Provider Condition Status Common Migraine W/o Aura W/o Intractable Migraine W/o Status Migrainosus 02/20/2021 BABAR COLVIN RN HEATHER Active Last Documented On 02/20/2021 11:55AM ; [facility] Note: Dr. Asher Bauer Family history of malignant neoplasm of breast 10/13/2018 BABAR COLVIN RN HEATHER Active Last Documented On 10/13/2018 9:49AM ; [facility] Note: MGM in 50's ER+ MI+ HER 2 - Plan of Treatment Education and Decision Aids were provided during visit for: Inquiry and counseling about contraceptive practices Last Documented On 10:58AM ; [facility] Assessments Includes: Assessments from this encounter Findings - Contraceptive management: initiate contraception - Last Documented On 04/16/2021 11:06AM ; [facility] Instructions Includes: Instructions from this encounter Education and Decision Aids were provided during visit for: Inquiry and counseling about contraceptive practices Last Documented On 1 10:58AM ; [facility] Medical Equipment - Implanted Devices Includes: Current Devices No Medical Equipment Recorded Medications Includes: Medications discussed during this encounter and other current Medications Discontinued / Stopped on this date on 02/20/2020 FLUoxetine HCl 20 MG Oral Tablet Provider : Diagnosis: Last Documented On 1 11:01AM By BABAR NOBLE ; [facility] New / Renewed during this visit BABAR DELGADO on 04/16/2021 Debra 0.35 MG Oral Tablet Provider: BABAR Lizama 28 day supply: 28 tablet, 2 refills Diagnosis: Encounter for contraceptive management, unspecified 1 daily START PILLS THE T WEDNESDAY AFTER NEXT MENSES BEGINS FINISH ALL PILLS IN PACK and back first cycle Pharmacy: [address], [phone] - Last Documented On 2 3:50PM By BABAR NOBLE ; [facility] Current Medications (continue as prescribed) Topiramate 25 MG Oral Tablet 04/16/2021 Provider: Diagnosis: Last Documented On 1 11:01AM By BABAR NOBLE ; [facility] FLUoxetine HCl 40 MG Oral Capsule 04/16/2021 Provide r: Diagnosis: Last Documented On 1 11:02AM By BABAR NOBLE ; [facility] Past Medications on file Norlyda 0.35 MG Oral Tablet 06/16/2022 - 05/18/2023 Provider: BABAR DELGADO Diagnosis: Encounter for contraceptive management, unspecified One tablet daily Last Documented On 2 10:39AM By BABAR NOBLE ; [facility] metroNIDAZOLE 0.75% Vaginal Gel 07/31/2021 - 08/05/2021 Provider: BABAR DELGADO Diagnosis: Acute vaginitis as directed 1 JADON PER VAGINA DAILY X 5 Last Documented On 2 8:16AM By BABAR NOBLE ; [facility] Fluconazole 150 MG Oral Tablet 07/28/2021 - 07/30/2021 Provider: BABAR SCHAEFER Diagnosis: Acute vaginitis 1 daily Pt. 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 BUM X 1 MONTH Last Documented On 9 3:04PM By BABAR NOBLE ; [facility] Aviane 0.1-20MG-MCG Oral Tablet 05/18/2018 - 03/22/2019 Provider: BABAR COLVIN RN HEATHER Diagnosis: Dysmenorrhea, unspecified One tablet daily TAKE DIRECTED Last Documented On 8 3:52PM By BABAR NOBLE ; [facility] Medications Administered Includes: Administered Medications from this encounter No Administered Medications Recorded Vital Signs Includes: Vital Signs from this encounter Vital Name 04/16/2021 10:35A Blood Pressure Sitting L 116/74 BP Cuff Size Regular Temp-Oral (F) 98.2 Height (in) 64 Weight (lb) 145 Body Mass Index (kg/m2) 24.9 BMI Percentile (percentile) 78 Body Surface Area (m2) 1.7 Last Documented: On 04/16/2021 10:39A M ; [facility] Results Includes: Results discussed during this encounter No Results Recorded For Specified Dates History of Present Illness Includes: History of Present Illness from this encounter No History of Present Illness Recorded Social History Description Last Updated Tobacco non-user 04/16/2021 Last Documented On 11:06AM ; [facility] Smoking Status Unknown Procedures and Surgical History Includes: Procedures from this encounter Procedures Code Diagnosis Performing Provider Service L ocation Service Date evaluation of contraceptive history performed Last Documented On 10:58AM ; [facility] education about contraceptio n performed Pt informed per WHO estrogen is contraindicated with anyone diagnosed with migraine and neurological aura d/t elevated risk of CV events. Pt counseled on potential side effects associated with progestin only contraceptives, including menses cycle changes, ovarian cysts and increase in depression. Pt opts for pills after benefit/risk review of all progestin only contraceptive options and instructed on how to begin pills after next menses. All questions answered and pt. instructed on BUM 1st cycle Last Documented On 11:06AM ; [facility] reporting of contraception complications performed Last Documented On 10:58AM ; [facility] Surgical History Last Updated Surgical / procedural history [place] martin th removal 02/16/2019 Last Documented On 10:35AM ; [facility] Medical History Includes: Medical History addressed during this encounter Description Last Updated Sexually active 2 PARTNERS IN LAST YEAR 06/16/2022 Last Documented On 10:35AM ; [facility] Contraception: % 04/16/2021 Last Documented On 11:06AM ; [facility] Primary Care Provider: Dr Desir and Dr. Sterling 04/16/2021 Last Documented On 11:06AM ; [facility] LMP: 03/26/2021 04/16/2021 Last Documented On 11:06AM ; [facility] 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 Last Documented On 1 10:35AM ; [facility] No recent change in medical history 02/09 Last Documented On 1 10:35AM ; [facility] 0 05/18/2018 Last Documented On 1 10:35AM ; [facility] History of Gardasil all [address] Desir 02/15/2018 Last Documented On 1 10:35AM ; [facility] Family History Includes: Family History addressed during this encounter Description Last Updated Family history unchanged 02/20/2020 Last Documented On 1 10:35AM ; [facility] Maternal grandfather's history of diabet es mellitus mgf 02/20/2020 Last Documented On 1 10:35AM ; [facility] Maternal grandmother's histo ry of malignant female breast neoplasm materal grandmother and great grandmother 02/20/2020 Last Documented On 1 10:35AM ; [facility] Family history of malignant female breast neoplasm materal grandmother and great grandmother 02/16/2019 Last Documented On 1 10:35AM ; [facility] Maternal grandmother's history of diabet es mellitus maternal grandparents 02/15/2018 Last Documented On 1 10:35AM ; [facility] Review of Systems Includes: Review of [...] Active Last Documented On 2 10:02AM ; [facility] Encounters Encounter Provider Location Date Check-In Time Check-Out Time Diagnosis FOLLOW UP BABAR COLVIN RN HEATHER [facility] 04/16/20 21 10:31AM 10:57AM Contraceptive Management: Initiate Contraception Insurance Includes: Active Insurance Policies Plan Name Member ID Group # Subscriber Relationship Effect renata Dates 1 - [employer] [id number] SHARAD TAYLOR Self 2 - [id number] RODRIGUEZ Child Clinical Notes Includes: Clinical Notes from this encounter No Clinical Notes Recorded
--- OUTSIDE RECORDS SUMMARY | 2024-10-27 22:27 | XMS_ITS | Clinical Summary ---
Author Organization [facility] Address [address] [place] [address] Phone Care Team Providers Care Orthodontic Assistant Name Role Phone VAZQUEZ REY, KAVIN Omalley Unavailable [phone] Reason for Visit and Chief Complaint CHART UPDATE Problems Includes: Problems addressed during this encounter and other active Problems All Visits Onset Date Resolved Date Provider Condition S tatus Depression Recurrent 04/16/2021 BABAR COLVIN RN HEATHER Active Last Documented On 04/16/2021 10:43AM ; [facility] Note: history of Common Migraine W/o Aura W/o Intractable Migraine W/o Status Migrainosus 02/20/2021 BABAR COLVIN RN HEATHER Active Last Documented On 02/20/2021 11:55AM ; [facility] Note: Dr. Asher Bauer Family history of malignant neoplasm of breast 10/13/2018 BABAR COLVIN RN HEATHER Active Last Documented On 10/13/2018 9:49AM ; [facility] Note: MGM in 50's ER+ [place]+ HER 2 - Plan of Treatment No Plan of Treatment Recorded Assessments Includes: Assessments from this encounter Findings - Vaginitis - Last Documented On 07/31/2021 8:06AM ; [facility] Medical Equipment - Implanted Devices Includes: Current Devices No Medical Equipment Recorded Medications Includes: Medications discussed during this encounter and other current Medications New / Renewed during this visit BABAR SCHAEFER on 07/31/2021 metroNIDAZOLE 0.75% Vaginal Gel Provider: BABAR SCHAEFER 5 day supply: 70 gram, 0 refills Diagnosis: Acute vaginitis as directed 1 JADON PER VAGINA DAILY X 5 Pharmacy : [address], [phone] - Last Documented On 2 8:16AM By BABAR NOBLE ; [facility] Current Medications (continue as prescribed) Topiramate 25 MG Oral Tablet 04/16/2021 Provider: Diagnosis: Last Documented On 1 11:01AM By BABAR NOBLE ; [facility] FLUoxetine HCl 40 MG Oral Capsule 04/16/2021 Provide r: Diagnosis: Last Documented On 1 11:02AM By BABAR NOBLE ; [facility] Past Medications on file Norlyda 0.35 MG Oral Tablet 06/16/2022 - 05/18/2023 Provider: BABAR COLVIN RN HEATHER Diagnosis: Encounter for contraceptive management, unspecified One tablet daily Last Documented On 2 10:39AM By BABAR NOBLE ; [facility] Fluconazole 150 MG Oral Tablet 07/28/2021 - 07/30/2021 Provider: BABAR SCHAEFER Diagnosis: Acute vaginitis 1 daily Pt. 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 BUM X 1 MONTH Last Documented On 9 3:04PM By BABAR NOBLE ; [facility] Aviane 0.1-20MG-MCG Oral Tablet 05/18/2018 - 03/22/2019 Provider: BABAR SCHAEFER Diagnosis: Dysmenorrhea, unspecified One tablet daily TAKE DIRECTED Last Documented On 8 3:52PM By BABAR NOBLE ; [facility] Medications Administered Includes: Administered Medications from this encounter No Administered Medications Recorded Results Includes: Results discussed during this encounter BACTERIAL VAGINOSIS PANEL(AFFIRM SWAB) [facility] Laboratory Ordered by BABAR COLVIN RN HEATHER on 07/28/[address] [place] [address], [phone] Collected: 07/28/2021 Report ed: 07/31/2021 07:24 tel: Last Documented On 2 8:17AM ; [facility] Reviewed by BABAR COLVIN RN HEATHER on 07/31/2021; All test results are final unless otherwise noted. TRICHOMONAS: NOT DETECTED (NOT DETECTED) N (Normal) Last Documented On 2 7:40AM ; [facility] Note: Responsible Observer: (rfl) GARDNERELLA: DETECTED (NOT DETECTED) A (Abnormal) Last Documented On 2 7:40AM ; [facility] Note: Increased levels of G. vaginalis m ay not be significantin the absence of signs and symptoms of bacterialvaginosis.Responsible Observer: (rfl) BRIJESH: NOT DETECTED (NOT DETECTED) N (Normal) Last Documented On 2 7:40AM ; [facility] Note: THIS TEST WAS PERFORMED AT:[facility] [id number] [facility] [place] [address]WTRZGMA BECKER,DO,MPHResponsible Observer: (rfl) History of Present Illness Includes: History of Present Illness from this encounter No History of Present Illness Recorded Social History No Social History Recorded - Smoking Status Unknown Procedures and Surgical History Surgical History Last Updated Surgical / procedural history [place] martin th removal 02/16/2019 Last Documented On 2 8:05AM ; [facility] Medical History Includes: Medical History addressed during this encounter Description Last Updated Contraception: [id number]% 06/16/2022 Last Documented On 2 8:05AM ; [facility] Sexually active 2 PARTNERS IN LAST YEAR 06/16/2022 Last Documented On 2 8:05AM ; [facility] LMP: 07/12/2021 Last unprotected 04/202106/16/2022 Last Documented On 2 8:05AM ; [facility] Primary Care Provider: Dr Desir and Dr. Sterling 06/16/2022 Last Documented On 2 8:05AM ; [facility] History of vaginitis 07/28/2021 Last Documented On 2 8:05AM ; [facility] 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 Last Documented On 2 8:05AM ; [facility] No recent change in medical history 02/09 Last Documented On 2 8:05AM ; [facility] 0 05/18/2018 Last Documented On 2 8:05AM ; [facility] History of Gardasil all [address] Desir 02/15/2018 Last Documented On 2 8:05AM ; [facility] Family History Includes: Family History addressed during this encounter Description Last Updated Family history unchanged 02/20/2020 Last Documented On 2 8:05AM ; [facility] Maternal grandfather's history of diabet es mellitus mgf 02/20/2020 Last Documented On 2 8:05AM ; [facility] Maternal grandmother's histo ry of malignant female breast neoplasm materal grandmother and great grandmother 02/20/2020 Last Documented On 2 8:05AM ; [facility] Family history of malignant female breast neoplasm materal grandmother and great grandmother 02/16/2019 Last Documented On 2 8:05AM ; [facility] Maternal grandmother's history of diabet es mellitus maternal grandparents 02/15/2018 Last Documented On 2 8:05AM ; [facility] Review of Systems Includes: Review of [...] Active Last Documented On 2 10:02AM ; [facility] Encounters Encounter Provider Location Date Check-In Time Check-Out Time Diagnosis CHART UPDATE BABAR COLVIN RN [facility] 07/31/2021 8:04AM 11:59PM Vaginitis Insurance Includes: Active Insurance Policies Plan Name Member ID Group # Subscriber Relationship Effect renata Dates 1 - [employer] [id number] SHARAD [facility] 2 - [facility] RANDALLIA [id number] YANEZ Child Clinical Notes Includes: Clinical Notes from this encounter No Clinical Notes Recorded
[2024-10-27 23:28] LABS: Influenza A QL RT-PCR Negative (Negative); Influenza B QL RT-PCR Negative (Negative); RSV RNA, RT-PCR Negative (Negative); SARS-CoV-2 RNA PCR Negative (Negative)
--- OUTSIDE RECORDS SUMMARY | 2024-10-27 23:35 | XMS_ITS | Clinical Summary ---
Author Organization [facility] Address [address] [place] [address] Care Team Providers Care Network/Telecom Engineer Name Role Phone Raffaele Desir MD Primary Care Provider [phone] Source Comments [facility],non-owned Affiliates and Associated Physician Practices is amultiple site organization consisting of ambulatory clinics and hospital sitesin [place], [place], [place] and [place]. This disclosure is being madepursuant to the Care Everywhere program and may not contain all information available regarding this patient. Last updated 18.[facility] Allergies Active Allergy Reactions Criticality Noted Date [...] Comments Blood Pressure 108/64 09/04/2020 2:04 PM LOWERATOR OPERATOR Pulse 88 09/04/2020 2:04 PM LOWERATOR OPERATOR Temperature 36.7 C (98 F) 09/04/2020 2:04 PM LOWERATOR OPERATOR Respiratory Rate 16 09/04/2020 2:04 PM LOWERATOR OPERATOR Oxygen Saturation 98% 09/04/2020 2:04 PM LOWERATOR OPERATOR Inhaled Oxygen Concentration - - Weight 64.4 kg (142 lb) 09/04/2020 2:04 PM LOWERATOR OPERATOR Height 162.6 cm (5' 4 ) 09/04/2020 2:04 PM LOWERATOR OPERATOR Body Mass Index 24.37 09/04/2020 2:04 PM LOWERATOR OPERATOR Plan of Treatment Health Maintenance Due Date [...] topic Insurance ANTHTALISHA [employer] ANTHTALISHA Care Teams Network/Telecom Engineer Relationship Specialty Start Date End Date Raffaele Desir MD [address] [facility] [address] [place] [address] PCP - General Pediatrics 03/10/18
--- OUTSIDE RECORDS SUMMARY | 2024-10-27 23:35 | XMS_ITS | Clinical Summary ---
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 Asher Bauer Family history of malignant neoplasm of breast 10/13/2018 BABAR COLVIN RN HEATHER Active Last Documented On 10/13/2018 9:49AM ; [facility] Note: MGM in 50's ER+ [place]+ HER 2 - Plan of Treatment No Plan of Treatment Recorded Assessments Includes: Assessments from this encounter Findings - Vulvitis - Last Documented On 03/23/2021 8:49AM ; [facility] Medical Equipment - Implanted Devices Includes: Current Devices No Medical Equipment Recorded Medications Includes: Medications discussed during this encounter and other current Medications New / Renewed during this visit BABAR COLVIN RN HEATHER on 03/23/2021 levoFLOXacin 750 MG Oral Tablet Provider: BABAR COLVIN RN HEATHER 7 day supply: 7 tablet, 0 refills Diagnosis: Acute vulvitis One tablet daily Pharmacy: [address], [phone] - Last Documented On 1 8:49AM By BABAR NOBLE ; [facility] Current Medications (continue as prescribed) Topiramate 25 MG Oral Tablet 04/16/2021 Provider: Diagnosis: Last Documented On 1 11:01AM By BABAR NOBLE ; [facility] FLUoxetine HCl 40 MG Oral Capsule 04/16/2021 Provide r: Diagnosis: Last Documented On 1 11:02AM By BABAR NOBEL ; [facility] Past Medications on file Norlyda 0.35 MG Oral Tablet 06/16/2022 - 05/18/2023 Provider: BABAR DELGADO Diagnosis: Encounter for contraceptive management, unspecified One tablet daily Last Documented On 2 10:39AM By BABAR NOBLE ; [facility] metroNIDAZOLE 0.75% Vaginal Gel 07/31/2021 - 08/05/2021 Provider: BABAR DELGADO Diagnosis: Acute vaginitis as directed 1 JADON PER VAGINA DAILY X 5 Last Documented On 2 8:16AM By BABAR NOBLE ; [facility] Fluconazole 150 MG Oral Tablet 07/28/2021 - 07/30/2021 Provider: BABAR SCHAEFER Diagnosis: Acute vaginitis 1 daily Pt. 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 BUM X 1 MONTH Last Documented On 9 3:04PM By BABAR NOBLE ; [facility] Aviane 0.1-20MG-MCG Oral Tablet 05/18/2018 - 03/22/2019 Provider: BABAR COLVIN RN HEATHER BC Diagnosis: Dysmenorrhea, unspecified One tablet daily TAKE DIRECTED Last Documented On 8 3:52PM By BABAR NOBLE ; [facility] Medications Administered Includes: Administered Medications from this [...] History Last Updated Surgical / procedural history [place] martin th removal 02/16/2019 Last Documented On 1 8:46AM ; [facility] Medical History Includes: Medical History addressed during this encounter Description Last Updated Contraception: condoms 06/16/2022 Last Documented On 1 8:46AM ; [facility] Sexually active 2 PARTNERS IN LAST YEAR 06/16/2022 Last Documented On 1 8:46AM ; [facility] LMP: 02/22/2021 06/16/2022 Last Documented On 1 8:46AM ; [facility] PRIMARY CARE PROVIDER : Dr Desir 2021 Last Documented On 1 8:46AM ; [facility] 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 Last Documented On 1 8:46AM ; [facility] No recent change in medical history 02/09 Last Documented On 1 8:46AM ; [facility] 0 05/18/2018 Last Documented On 1 8:46AM ; [facility] History of Gardasil all [address] Desir 02/15/2018 Last Documented On 1 8:46AM ; [facility] Family History Includes: Family History addressed during this encounter Description Last Updated Family history unchanged 02/20/2020 Last Documented On 1 8:46AM ; [facility] Maternal grandfather's history of diabet es mellitus mgf 02/20/2020 Last Documented On 1 8:46AM ; [facility] Maternal grandmother's histo ry of malignant female breast neoplasm materal grandmother and great grandmother 02/20/2020 Last Documented On 1 8:46AM ; [facility] Family history of malignant female breast neoplasm materal grandmother and great grandmother 02/16/2019 Last Documented On 1 8:46AM ; [facility] Maternal grandmother's history of diabet es mellitus maternal grandparents 02/15/2018 Last Documented On 1 8:46AM ; [facility] Review of Systems Includes: Review of Systems [...] Active Last Documented On 2 10:02AM ; [facility] Encounters Encounter Provider Location Date Check-In Time Check-Out Time Diagnosis CHART UPDATE BABAR COLVIN RN [facility] 03/23/2021 8:45AM 11:59PM Vulvitis Insurance Includes: Active Insurance Policies Plan Name Member ID Group # Subscriber Relationship Effect renata Dates 1 - [employer] [id number] [facility] - [facility] [id number] YANEZ Child Clinical Notes Includes: Clinical Notes from this encounter No Clinical Notes Recorded
--- OUTSIDE RECORDS SUMMARY | 2024-10-27 23:35 | XMS_ITS ---
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 - Plan of Treatment Findings Encounter Date Ordered Clinical summary pro vided to patient WELL WOMAN - ESTABLISHED PT with BABAR COLVIN RN [facility] 06/16/2022 Last Documented On 2 10:26AM ; [facility] Ordered Clinical summary pro vided to patient WELL WOMAN - ESTABLISHED PT with BABAR COLVIN RN [facility] 02/20/2021 Last Documented On 1 12:02PM ; [facility] Ordered Clinical 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 COLVIN RN [facility] 02/20/2020 Last Documented On 0 3:01PM ; [facility] Ordered Clinical 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 COLVIN RN [facility] 02/16/2019 Last Documented On 9 3:06PM ; [facility] Ordered Clinical summary pro vided to patient NEW 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 COLVIN RN [facility] 02/15/2018 Last Documented On 8 10:45AM ; [facility] Instructions to patient Instructions for patient : B reast Self Exam discussed and technique reviewed Last Documented On 2 10:24AM ; [facility] Use a condom during sexual i ntercourse Last Documented On 2 10:24AM ; [facility] Instructed to call if excess renata bleeding or abdominal/pelvic pain Last Documented On 2 10:24AM ; [facility] Recommend diet and exercise at least 30 min three times per week Last Documented On 2 10:24AM ; [facility] Instructions for patient : K eep the area around the vulva dry. Allow the area to have exposure to air. Avoid irritants such as fabric softeners and perfumed soaps.~ Last Documented On 2 3:04PM ; [facility] Return to the clinic if cond ition worsens or new symptoms arise Last Documented On 1 9:16AM ; [facility] Instructions for patient : B reast Self Exam discussed and technique reviewed Last Documented On 1 11:55AM ; [facility] Use a condom during sexual i ntercourse Last Documented On 1 11:55AM ; [facility] Instructed to call if excess renata bleeding or abdominal/pelvic pain Last Documented On 1 11:55AM ; [facility] Recommend diet and exercise at least 30 min three times per week Last Documented On 1 11:55AM ; [facility] Instructions for patient : B reast Self Exam discussed and technique reviewed Last Documented On 0 2:45PM ; [facility] Use a condom during sexual i ntercourse Last Documented On 0 2:45PM ; [facility] Instructed to call if excess renata bleeding or abdominal/pelvic pain Last Documented On 0 2:45PM ; [facility] Recommend diet and exercise at least 30 min three times per week Last Documented On 0 2:45PM ; [facility] Instructions for patient : B reast Self Exam discussed and technique reviewed Last Documented On 9 2:33PM ; [facility] Use a condom during sexual i ntercourse Last Documented On 9 2:34PM ; [facility] Instructed to call if excess renata bleeding or abdominal/pelvic pain Last Documented On 9 2:33PM ; [facility] Recommend diet and exercise at least 30 min three times per week Last Documented On 9 2:33PM ; [facility] Instructions for patient : B reast Self Exam discussed and technique reviewed Last Documented On 8 10:39AM ; [facility] Instructed to call if excess renata bleeding or abdominal/pelvic pain Last Documented On 8 10:39AM ; [facility] Recommend diet and exercise at least 30 min three times per week Last Documented On 8 10:39AM ; [facility] Education and Decision Aids were provided during visit for: Patient education RE: suzette oseguera signals associated with hormonal contraceptive use including abdominal, chest, or leg pain, headaches or visual disturbances Last Documented On 2 10:24AM ; [facility] Patient Education: Daily anel cium and vitamin D Last Documented On 2 10:24AM ; [facility] Patient counseling : Use of contraceptives discussed in detail including rare occurrence of heart attack, stroke, and leg clots. Patient understands that smoking increases the risk of serious side effects with any steroid-based contraceptive method Last Documented On 2 3:13PM ; [facility] Inquiry and counseling about contraceptive practices Last Documented On 1 10:58AM ; [facility] Patient education :to consid er skin punch bx. of genital depigmentation after culture results review Last Documented On 1 9:16AM ; [facility] Patient counseling : STD pre vention. I discussed with the patient that condoms can reduce the chance of getting an STD but not eliminate it. Increased exposure from multiple sex partners also discussed Last Documented On 1 9:16AM ; [facility] Patient Education: Daily anel cium and vitamin D Last Documented On 1 11:55AM ; [facility] Discussed smoking and drug u se Last Documented On 0 2:45PM ; [facility] Patient education RE: debtwin oumar signals associated with hormonal contraceptive use including abdominal, chest, or leg pain, headaches or visual disturbances Last Documented On 0 2:45PM ; [facility] Patient Education: Daily anel cium and vitamin D Last Documented On 0 2:45PM ; [facility] Patient counseling : Use of contraceptives discussed in detail including rare occurrence of heart attack, stroke, and leg clots. Patient understands that smoking increases the risk of serious side effects with any steroid-based contraceptive method Last Documented On 9 2:57PM ; [facility] Discussed smoking and drug u se Last Documented On 9 2:33PM ; [facility] Discussed risk-taking behavi or Last Documented On 9 2:33PM ; [facility] Patient education RE: suzette g signals associated with hormonal contraceptive use including abdominal, chest, or leg pain, headaches or visual disturbances Last Documented On 9 2:33PM ; [facility] Patient Education: Daily anel cium and vitamin D Last Documented On 9 2:33PM ; [facility] Patient counseling : Use of contraceptives discussed in detail including rare occurrence of heart attack, stroke, and leg clots. Patient understands that smoking increases the risk of serious side effects with any steroid-based contraceptive method Last Documented On 8 3:49PM ; [facility] Patient education RE: suzette g signals associated with hormonal contraceptive use including abdominal, chest, or leg pain, headaches or visual disturbances Last Documented On 8 10:39AM ; [facility] Patient Education: Daily anel cium and vitamin D Last Documented On 8 10:39AM ; [facility] control consent review ed and signed Last Documented On 8 10:39AM ; [facility] Assessments Includes: Assessments for all patient encounters Findings Encounter Date NORMAL FEMALE EXAM WELL WOMAN - ESTABLI SHED PT with BABAR COLVIN RN [facility] 06/16/2022 Last Documented On 2 10:26AM ; [facility] Vaginitis CHART UPDATE with BABAR COLVIN RN [facility] 07/31/2021 Last Documented On 2 8:06AM ; [facility] Encounter for contraceptive surveillance, unspecified PROBLEM VISIT with BABAR COLVIN RN [facility] 07/28/2021 Last Documented On 2 3:15PM ; [facility] Vaginitis PROBLEM VISIT with BABAR COLVIN RN [facility] 07/28/2021 Last Documented On 2 3:15PM ; [facility] Contraceptive management: in itiate contraception FOLLOW UP with BABAR COLVIN RN [facility] 04/16/2021 Last Documented On 1 11:06AM ; [facility] Vulvitis CHART UPDATE with BABAR COLVIN RN [facility] 03/23/2021 Last Documented On 1 8:49AM ; [facility] Primary vitiligo vs. 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 02/20/2020 Last Documented On 0 3:01PM ; [facility] Encounter for contraceptive surveillance, unspecified 3 MONTH CHECK with BABAR COLVIN RN [facility] 07/06/2019 Last Documented On 9 3:01PM ; [facility] Dysmenorrhea 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 RN [facility] 02/16/2019 Last Documented On 9 3:06PM ; [facility] NORMAL FEMALE 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 Barry [facility] 02/16/2019 Last Documented On 9 3:06PM ; [facility] Encounter for contraceptive surveillance, unspecified 3 MONTH CHECK with BABAR COLVIN RN [facility] 05/18/2018 Last Documented On 8 3:50PM ; [facility] Dysmenorrhea NEW 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 COLVIN RN [facility] 02/15/2018 Last Documented On 8 10:45AM ; [facility] NORMAL FEMALE EXAM NEW 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 PARIKH RN [facility] 02/15/2018 Last Documented On 8 10:45AM ; [facility] Instructions Includes: Instructions for all patient encounters Instructions to patient Instructions for patient : B reast Self Exam discussed and technique reviewed Last Documented On 2 10:24AM ; [facility] Use a condom during sexual i ntercourse Last Documented On 2 10:24AM ; [facility] Instructed to call if excess renata bleeding or abdominal/pelvic pain Last Documented On 2 10:24AM ; [facility] Recommend diet and exercise at least 30 min three times per week Last Documented On 2 10:24AM ; [facility] Instructions for patient : K eep the area around the vulva dry. Allow the area to have exposure to air. Avoid irritants such as fabric softeners and perfumed soaps.~ Last Documented On 2 3:04PM ; [facility] Return to the clinic if cond ition worsens or new symptoms arise Last Documented On 1 9:16AM ; [facility] Instructions for patient : B reast Self Exam discussed and technique reviewed Last Documented On 1 11:55AM ; [facility] Use a condom during sexual i ntercourse Last Documented On 1 11:55AM ; [facility] Instructed to call if excess renata bleeding or abdominal/pelvic pain Last Documented On 1 11:55AM ; [facility] Recommend diet and exercise at least 30 min three times per week Last Documented On 1 11:55AM ; [facility] Instructions for patient : B reast Self Exam discussed and technique reviewed Last Documented On 0 2:45PM ; [facility] Use a condom during sexual i ntercourse Last Documented On 0 2:45PM ; [facility] Instructed to call if excess renata bleeding or abdominal/pelvic pain Last Documented On 0 2:45PM ; [facility] Recommend diet and exercise at least 30 min three times per week Last Documented On 0 2:45PM ; [facility] Instructions for patient : B reast Self Exam discussed and technique reviewed Last Documented On 9 2:33PM ; [facility] Use a condom during sexual i ntercourse Last Documented On 9 2:34PM ; [facility] Instructed to call if excess renata bleeding or abdominal/pelvic pain Last Documented On 9 2:33PM ; [facility] Recommend diet and exercise at least 30 min three times per week Last Documented On 9 2:33PM ; [facility] Instructions for patient : B reast Self Exam discussed and technique reviewed Last Documented On 8 10:39AM ; [facility] Instructed to call if excess renata bleeding or abdominal/pelvic pain Last Documented On 8 10:39AM ; [facility] Recommend diet and exercise at least 30 min three times per week Last Documented On 8 10:39AM ; [facility] Education and Decision Aids were provided during visit for: Patient education RE: suzette oseguera signals associated with hormonal contraceptive use including abdominal, chest, or leg pain, headaches or visual disturbances Last Documented On 2 10:24AM ; [facility] Patient Education: Daily anel cium and vitamin D Last Documented On 2 10:24AM ; [facility] Patient counseling : Use of contraceptives discussed in detail including rare occurrence of heart attack, stroke, and leg clots. Patient understands that smoking increases the risk of serious side effects with any steroid-based contraceptive method Last Documented On 2 3:13PM ; [facility] Inquiry and counseling about contraceptive practices Last Documented On 1 10:58AM ; [facility] Patient education :to consid er skin punch bx. of genital depigmentation after culture results review Last Documented On 1 9:16AM ; [facility] Patient counseling : STD pre vention. I discussed with the patient that condoms can reduce the chance of getting an STD but not eliminate it. Increased exposure from multiple sex partners also discussed Last Documented On 1 9:16AM ; [facility] Patient Education: Daily anel cium and vitamin D Last Documented On 1 11:55AM ; [facility] Discussed smoking and drug u se Last Documented On 0 2:45PM ; [facility] Patient education RE: suzette oseguera signals associated with hormonal contraceptive use including abdominal, chest, or leg pain, headaches or visual disturbances Last Documented On 0 2:45PM ; [facility] Patient Education: Daily anel cium and vitamin D Last Documented On 0 2:45PM ; [facility] Patient counseling : Use of contraceptives discussed in detail including rare occurrence of heart attack, stroke, and leg clots. Patient understands that smoking increases the risk of serious side effects with any steroid-based contraceptive method Last Documented On 9 2:57PM ; [facility] Discussed smoking and drug u se Last Documented On 9 2:33PM ; [facility] Discussed risk-taking behavi or Last Documented On 9 2:33PM ; [facility] Patient education RE: suzette g signals associated with hormonal contraceptive use including abdominal, chest, or leg pain, headaches or visual disturbances Last Documented On 9 2:33PM ; [facility] Patient Education: Daily anel cium and vitamin D Last Documented On 9 2:33PM ; [facility] Patient counseling : Use of contraceptives discussed in detail including rare occurrence of heart attack, stroke, and leg clots. Patient understands that smoking increases the risk of serious side effects with any steroid-based contraceptive method Last Documented On 8 3:49PM ; [facility] Patient education RE: warnin g signals associated with hormonal contraceptive use including abdominal, chest, or leg pain, headaches or visual disturbances Last Documented On 8 10:39AM ; [facility] Patient Education: Daily anel cium and vitamin D Last Documented On 8 10:39AM ; [facility] control consent review ed and signed Last Documented On 8 10:39AM ; [facility] Medical Equipment - Implanted Devices Includes: Current and historical Devices No Medical Equipment Recorded Medications Includes: Current and historical Medications Current Medications (continue as prescribed) Topiramate 25 MG Oral Tablet 04/16/2021 Provider: Diagnosis: Last Documented On 1 11:01AM By BABAR NOBLE ; [facility] FLUoxetine HCl 40 MG Oral Capsule 04/16/2021 Provide r: Diagnosis: Last Documented On 1 11:02AM By BABAR NOBLE ; [facility] Past Medications on file Norlyda 0.35 MG Oral Tablet 06/16/2022 - 05/18/2023 Provider: BABAR DELGADO Diagnosis: Encounter for contraceptive management, unspecified One tablet daily Last Documented On 2 10:39AM By BABAR NOBLE ; [facility] metroNIDAZOLE 0.75% Vaginal Gel 07/31/2021 - 08/05/2021 Provider: BABAR DELGADO Diagnosis: Acute vaginitis as directed 1 JADON PER VAGINA DAILY X 5 Last Documented On 2 8:16AM By BABAR NOBLE ; [facility] Norlyda 0.35 MG Oral Tablet 07/28/2021 - 06/16/2022 Provider: BABAR DELGADO Diagnosis: Encounter for contraceptive management, unspecified One tablet daily Last Documented On 2 10:23AM By BABAR NOBLE ; [facility] Fluconazole 150 MG Oral Tablet 07/28/2021 [...] On 2 3:02PM By BABAR NOBLE ; [facility] Debra 0.35 MG Oral Tablet 04/16/2021 - 07/14/2021 Provider: BABAR COLVIN RN [facility] Diagnosis: Encounter for contraceptive management, unspecified 1 daily START PILLS THE T WEDNESDAY AFTER NEXT MENSES BEGINS FINISH ALL PILLS IN PACK and back first cycle Last Documented On 2 3:50PM By BABAR NOBLE ; [facility] levoFLOXacin 750 MG Oral Tablet 03/23/2021 - 03/30/2021 Provider: BABAR COLVIN RN [facility] Diagnosis: Acute vulvitis One tablet daily Last Documented On 1 8:49AM By BABAR NOBLE ; [facility] Azithromycin 500 MG Oral Tablet 02/23/2021 - 02/24/2021 Provider: BABAR COLVIN RN [facility] Diagnosis: 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 as directed 2 TABLETS NOW Last Documented On 1 12:58PM By BABAR NOBLE ; [facility] Condoms Miscellaneous 02/20/2021 - 03/28/2021 Provider: BABAR COLVIN RN [facility] Diagnosis: Encounter for in itial prescription of other contraceptives as directed Last Documented On 1 12:00PM By BABAR NOBLE ; [facility] Lo Loestrin Fe 1 MG-10 MCG / 10 MCG Oral Tablet 01/10/2021 - 02/20/2021 Provider: BABAR COLVIN RN [facility] Diagnosis: sample pack dispensed Lot# [id number] Exp 04/2021......01/10/21 Last Documented On 11:55AM By BABAR NOBLE ; [facility] Lo Loestrin Fe 1 MG-10 MCG / 10 MCG Oral Tablet 01/01/2021 - 02/20/2021 Provider: BABAR COLVIN RN [facility] Diagnosis: Dysmenorrhea, unspecified TAKE 1 TABLET BY MOUTH DAILY Last Documented On 1 11:55AM By BABAR SANCHEZ ; [facility] FLUoxetine HCl 20 MG Oral Tablet 02/20/2020 - 04/16/20 Provider: Diagnosis: Last Documented On 1 11:01AM By BABAR SANCHEZ ; [facility] Lo Loestrin Fe 1 MG-10 MCG / 10 MCG Oral Tablet 02/20/2020 - 01/01/2021 Provider: BABAR COLVIN RN [facility] Diagnosis: Dysmenorrhea, unspecified One tablet daily Last Documented On 1 9:04AM By BABAR SANCHEZ ; [facility] Lo Loestrin Fe 1 MG-10 MCG / 10 MCG Oral Tablet 07/06/2019 - 02/20/2020 Provider: BABAR COLVIN RN [facility] Diagnosis: Dysmenorrhea, unspecified One tablet daily Last Documented On 0 3:00PM By BABAR SANCHEZ ; [facility] Lo Loestrin Fe 1 MG-10 MCG / 10 MCG Oral Tablet 05/31/2019 - 07/06/2019 Provider: BABAR COLVIN RN [facility] Diagnosis: Dysmenorrhea, unspecified as directed TAKE DIRECTED DAILY W/FOOD Last Documented On 9 2:59PM By BABAR NOBLE ; [facility] Lo Loestrin Fe 1 MG-10 MCG / 10 MCG Oral Tablet 04/07/2019 - 05/31/2019 Provider: BABAR COLVIN RN [facility] Diagnosis: Dysmenorrhea, unspecified as directed TAKE DIRECTED DAILY W/FOOD Last Documented On 9 2:07PM By BABAR SANCHEZ ; [facility] Lo Loestrin Fe 1 MG-10 MCG /10 MCG Oral Tablet 02/16/2019 - 03/16/2019 Provider: BABAR COLVIN RN [facility] Diagnosis: Dysmenorrhea, unspecified One tablet daily PUNCH OUT F IRST 4 TABLETS AND START PACK TODAY. BUM X 1 MONTH Last Documented On 9 3:04PM By BABAR SANCHEZ ; [facility] Lo Loestrin Fe 1 MG-10 MCG /10 MCG Oral Tablet 02/16/2019 - 04/07/2019 Provider: BABAR COLVIN RN [facility] Diagnosis: Dysmenorrhea, unspecified as directed TAKE DIRECTED DAILY W/FOOD Last Documented On 9 12:04PM By BABAR SANCHEZ ; [facility] Aviane 0.1-20MG-MCG Oral Tablet 05/18/2018 - 03/22/2019 Provider: BABAR COLVIN RN [facility] Diagnosis: Dysmenorrhea, unspecified One tablet daily TAKE DIRECTED Last Documented On 8 3:52PM By BABAR SANCHEZ ; [facility] Aviane 0.1-20MG-MCG Oral Tablet 04/29/2018 - 05/18/2018 Provider: BABAR COLVIN RN [facility]ATHER Diagnosis: Dysmenorrhea, unspecified One tablet daily TAKE DIRECTED Last Documented On 8 3:49PM By BABAR SANCHEZ ; [facility] Aviane 0.1-20MG-MCG Oral Tablet 02/15/2018 - 04/29/2018 Provider: BABAR COLVIN RN HEATHER Diagnosis: Dysmenorrhea, unspecified One tablet daily TAKE DIRECTED Last Documented On 8 3:45PM By BABAR SANCHEZ ; [facility] Medications Administered Includes: Administered Medications in patient's [...] 06/16/2022 Last Documented On 2 10:26AM ; [facility] Current nonsmoker 06/16/2022 Last Documented On 2 10:26AM ; [facility] Education history 06/16/2022 Last Documented On 2 10:26AM ; [facility] Educational level senior [place] 06/16/2022 Last Documented On 2 10:26AM ; [facility] Non-smoker 06/16/2022 Last Documented On 2 10:26AM ; [facility] Not a smoker 06/16/2022 Last Documented On 2 10:26AM ; [facility] Not using alcohol 06/16/2022 Last Documented On 2 10:26AM ; [facility] Not using drugs 06/16/2022 Last Documented On 2 10:26AM ; [facility] Personal history 06/16/2022 Last Documented On 2 10:26AM ; [facility] Sexually active 06/16/2022 Last Documented On 2 10:26AM ; [facility] Single 06/16/2022 Last Documented On 2 10:26AM ; [facility] Social history unchanged 06/16/2022 Last Documented On 2 10:26AM ; [facility] Tobacco non-user 06/16/2022 Last Documented On 2 10:26AM ; [facility] Sexually active with 1 partners in the l ast year 06/16/2022 Last Documented On 2 10:26AM ; [facility] Smoking Status Unknown Procedures and Surgical History Surgical History Last Updated Surgical / procedural history [place] [facility] th removal 02/16/2019 Last Documented On 9 3:06PM ; [facility] Medical History Includes: Medical History in patient's chart Description Last Updated Contraception: condoms sometimes, last u nprotected coitus 1 month ago 06/16/2022 Last Documented On 2 10:26AM ; [facility] Sexually active 1 Partner in the last ye ar, last unprotected a month ago 06/16/2022 Last Documented On 2 10:26AM ; [facility] LMP: 06/02/2022 Last unprotected 04/202106/16/2022 Last Documented On 2 10:26AM ; [facility] Primary Care Provider: Dr. Sterling 12/2021 Last Documented On 2 10:26AM ; [facility] History of vaginitis 07/28/2021 Last Documented On 2 3:15PM ; [facility] 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 Last Documented On 1 9:18AM ; [facility] No recent change in medical history 02/09 Last Documented On 0 3:01PM ; [facility] 0 05/18/2018 Last Documented On 8 3:50PM ; [facility] History of Gardasil all [address] Deisr 02/15/2018 Last Documented On 8 10:45AM ; [facility] Family History Includes: Family History in patient's chart Description Last Updated Family history unchanged 02/20/2020 Last Documented On 0 3:01PM ; [facility] Maternal grandfather's history of diabet es mellitus mgf 02/20/2020 Last Documented On 0 3:01PM ; [facility] Maternal grandmother's histo ry of malignant female breast neoplasm materal grandmother and great grandmother 02/20/2020 Last Documented On 0 3:01PM ; [facility] Family history of malignant female breast neoplasm materal grandmother and great grandmother 02/16/2019 Last Documented On 9 3:06PM ; [facility] Maternal grandmother's history of diabet es mellitus maternal grandparents 02/15/2018 Last Documented On 8 10:45AM ; [facility] Review of Systems Review of Systems not [...] Active Last Documented On 2 10:02AM ; [facility] Insurance Includes: Active Insurance Policies Plan Name Member ID Group # Subscriber Relationship Effect renata Dates 1 - [employer]ETNA [id number] SHARAD TAYLOR Self 2 - [facility] [id number] YANEZ Child Clinical Notes Includes: Signed Clinical Notes starting from 07/31/2022 No Clinical Notes Recorded
--- OUTSIDE RECORDS SUMMARY | 2024-10-27 23:35 | XMS_ITS ---
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
--- OUTSIDE RECORDS SUMMARY | 2024-10-27 23:35 | XMS_ITS | Clinical Summary ---
Author Organization [facility] Address [address] [place] [address] Phone Care Team Providers Care Air Quality Technician Name Role Phone VAZQUEZ REY, KAVIN Shahram Unavailable [phone] Reason for Visit and Chief Complaint gynecologic annual exam, visit for: screening for STD - The Chief Complaint is: WWE. 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 Asher Bauer Family history of malignant neoplasm of breast 10/13/2018 BABAR COLVIN RN [facility] Active Last Documented On 10/13/2018 9:49AM ; [facility] Note: MGM in 50's ER+ [place]+ HER 2 - Plan of Treatment - Clinical summary provided to patient - Last Documented On 06/16/2022 10:26AM ; [facility] PT TO CALL WITH ANY CHANGE IN STATUS ALL QUESTIONS ANSWERED WITH UNDERSTANDING VERBALIZED BY PT. - Last Documented On 06/16/2022 10:26AM ; [facility] RTC 1 YEAR - Last Documented On 06/16/2022 10:26AM ; [facility] Instructions to patient Instructions for patient : B reast Self Exam discussed and technique reviewed Last Documented On 2 10:24AM ; [facility] Use a condom during sexual i ntercourse Last Documented On 2 10:24AM ; [facility] Instructed to call if excess renata bleeding or abdominal/pelvic pain Last Documented On 2 10:24AM ; [facility] Recommend diet and exercise at least 30 min three times per week Last Documented On 2 10:24AM ; [facility] Education and Decision Aids were provided during visit for: Patient education RE: suzette g signals associated with hormonal contraceptive use including abdominal, chest, or leg pain, headaches or visual disturbances Last Documented On 2 10:24AM ; [facility] Patient Education: Daily anel cium and vitamin D Last Documented On 10:24AM ; [facility] Assessments Includes: Assessments from this encounter Findings - NORMAL FEMALE EXAM - Last Documented On 06/16/2022 10:26AM ; [facility] Instructions Includes: Instructions from this encounter Instructions to patient Instructions for patient : B reast Self Exam discussed and technique reviewed Last Documented On 2 10:24AM ; [facility] Use a condom during sexual i ntercourse Last Documented On 2 10:24AM ; [facility] Instructed to call if excess renata bleeding or abdominal/pelvic pain Last Documented On 10:24AM ; [facility] Recommend diet and exercise at least 30 min three times per week Last Documented On 2 10:24AM ; [facility] Education and Decision Aids were provided during visit for: Patient education RE: debn g signals associated with hormonal contraceptive use including abdominal, chest, or leg pain, headaches or visual disturbances Last Documented On 2 10:24AM ; [facility] Patient Education: Daily anel cium and vitamin D Last Documented On 10:24AM ; [facility] Medical Equipment - Implanted [...] unspecified One tablet daily Pharmacy: [email or web address], [phone] - Last Documented On 2 10:39AM By BABAR NOBLE ; [facility] Current Medications (continue as prescribed) Topiramate 25 MG Oral Tablet 04/16/2021 Provider: Diagnosis: Last Documented On 1 11:01AM By BABAR NOBLE ; [facility] FLUoxetine HCl 40 MG Oral Capsule 04/16/2021 Provide r: Diagnosis: Last Documented On 1 11:02AM By BABAR NOBLE ; [facility] Past Medications on file metroNIDAZOLE 0.75% Vaginal Gel 07/31/2021 - 08/05/2021 Provider: BABAR SCHAEFER Diagnosis: Acute vaginitis as directed 1 JADON PER VAGINA DAILY X 5 Last Documented On 2 8:16AM By BABAR NOBLE ; [facility] Fluconazole 150 MG Oral Tablet 07/28/2021 - 07/30/2021 Provider: BABAR SCHAEFER Diagnosis: Acute vaginitis 1 daily Pt. 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 BUM X 1 MONTH Last Documented On 9 3:04PM By BABAR NOBLE ; [facility] Aviane 0.1-20MG-MCG Oral Tablet 05/18/2018 - 03/22/2019 Provider: BABAR DELGADO Diagnosis: Dysmenorrhea, unspecified One tablet daily TAKE DIRECTED Last Documented On 8 3:52PM By BABAR NOBLE ; [facility] Medications Administered Includes: Administered Medications from this encounter No Administered Medications Recorded Vital Signs Includes: Vital Signs from this encounter Vital Name 06/16/2022 10:00A Blood Pressure Sitting L 110/70 BP Cuff Size Regular Temp-Temporal 98 Height (in) 64 Weight (lb) 135 Body Mass Index 23.2 Body Surface Area 1.7 Last Documented: On 06/16/2022 10:04A M ; [facility] Results Includes: Results discussed during this encounter No Results Recorded For Specified Dates History of Present Illness Includes: History of Present Illness from this encounter HPI - Allergy list reviewed - Medication list reviewed Social History Description Last Updated Alcohol use: 2 drinks or less per day no ne 06/16/2022 Last Documented On 2 10:26AM ; [facility] Current nonsmoker 06/16/2022 Last Documented On 2 10:26AM ; [facility] Education history 06/16/2022 Last Documented On 2 10:26AM ; [facility] Educational level senior [facility] 06/16/2022 Last Documented On 2 10:26AM ; [facility] Non-smoker 06/16/2022 Last Documented On 2 10:26AM ; [facility] Not a smoker 06/16/2022 Last Documented On 2 10:26AM ; [facility] Not using alcohol 06/16/2022 Last Documented On 2 10:26AM ; [facility] Not using drugs 06/16/2022 Last Documented On 2 10:26AM ; [facility] Personal history 06/16/2022 Last Documented On 2 10:26AM ; [facility] Sexually active 06/16/2022 Last Documented On 2 10:26AM ; [facility] Sexually active with 2 partners in the l ast year 06/16/2022 Last Documented On 2 10:26AM ; [facility] Single 06/16/2022 Last Documented On 2 10:26AM ; [facility] Social history unchanged 06/16/2022 Last Documented On 2 10:26AM ; [facility] Tobacco non-user 06/16/2022 Last Documented On 2 10:26AM ; [facility] Sexually active with 1 partners in the l ast year 06/16/2022 Last Documented On 2 10:26AM ; [facility] Smoking Status Unknown Procedures and Surgical History Includes: Procedures from this encounter Procedures Code Diagnosis Performing Provider Service L ocation Service Date education and instructions use BUM as directed with OCP restart Last Documented On 2 10:25AM ; [facility] explanation of plan Last Documented On 2 10:24AM ; [facility] evaluation of contraceptive history perf ormed Last Documented On 2 10:24AM ; [facility] education about contraception performed Last Documented On 2 10:24AM ; [facility] reporting of contraception complications performed Last Documented On 2 10:24AM ; [facility] Discussed Contraception Last Documented On 2 10:24AM ; [facility] Urged Exercise and Diet , exercise at le ast 30 min three times per week Last Documented On 2 10:24AM ; [facility] Surgical History Last Updated Surgical / procedural history [place] martin th removal 02/16/2019 Last Documented On 2 10:00AM ; [facility] Medical History Includes: Medical History addressed during this encounter Description Last Updated Contraception: condoms sometimes, last u nprotected coitus 1 month ago 06/16/2022 Last Documented On 2 10:26AM ; [facility] Sexually active 1 Partner in the last ye ar, last unprotected a month ago 06/16/2022 Last Documented On 2 10:26AM ; [facility] LMP: 06/02/2022 Last unprotected 04/202106/16/2022 Last Documented On 2 10:26AM ; [facility] Primary Care Provider: Dr. 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 Last Documented On 2 10:00AM ; [facility] No recent change in medical history 02/09 Last Documented On 2 10:00AM ; [facility] 0 05/18/2018 Last Documented On 2 10:00AM ; [facility] History of Gardasil all [address] Desir 02/15/2018 Last Documented On 2 10:00AM ; [facility] Family History Includes: Family History addressed during this encounter Description Last Updated Family history unchanged 02/20/2020 Last Documented On 2 10:00AM ; [facility] Maternal grandfather's history of diabet es mellitus mgf 02/20/2020 Last Documented On 2 10:00AM ; [facility] Maternal grandmother's histo ry of malignant female breast neoplasm materal grandmother and great grandmother 02/20/2020 Last Documented On 2 10:00AM ; [facility] Family history of malignant female breast neoplasm materal grandmother and great grandmother 02/16/2019 Last Documented On 2 10:00AM ; [facility] Maternal grandmother's history of diabet es mellitus maternal grandparents 02/15/2018 Last Documented On 2 10:00AM ; [facility] Review of Systems Includes: Review [...] 10:02AM ; [facility] Encounters Encounter Provider Location Date Check-In Time Check-Out Time Diagnosis WELL WOMAN - ESTABLISHED PT BABAR SCHAEFER [facility] 06/16/20 22 10:00AM 10:26AM Normal Female Exam Insurance Includes: Active Insurance Policies Plan Name Member ID Group # Subscriber Relationship Effect renata Dates 1 - [employer] [id number] SHARAD Barry TAYLOR Self 2 - [place] [id number] RODRIGUEZ Child Clinical Notes Includes: Clinical Notes from this encounter No Clinical Notes Recorded
--- OUTSIDE RECORDS SUMMARY | 2024-10-27 23:36 | XMS_ITS | Clinical Summary ---
Author Organization [facility] Address [address] [place] [address] Phone Care Team Providers Care Watch Caser Name Role Phone VAZQUEZ REY, KAVIN Omalley Unavailable [phone] Reason for Visit and Chief Complaint visit for: contraceptive management - The Chief Complaint is: C/o pt wants discuss control options Problems Includes: Problems addressed during this encounter and other active Problems Current Visit Onset Date Resolved Date Provider Conditio n Status Depression Recurrent 04/16/2021 BABAR COLVIN RN [facility] Active Last Documented On 04/16/2021 10:43AM ; [facility] Note: history of Past Visits Onset Date Resolved Date Provider Condition Status Common Migraine W/o Aura W/o Intractable Migraine 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 - Plan of Treatment Education and Decision Aids were provided during visit for: Inquiry and counseling about contraceptive practices Last Documented On 10:58AM ; [facility] Assessments Includes: Assessments from this encounter Findings - Contraceptive management: initiate contraception - Last Documented On 04/16/2021 11:06AM ; [facility] Instructions Includes: Instructions from this encounter Education and Decision Aids were provided during visit for: Inquiry and counseling about contraceptive practices Last Documented On 1 10:58AM ; [facility] Medical Equipment - Implanted Devices Includes: Current Devices No Medical Equipment Recorded Medications Includes: Medications discussed during this encounter and other current Medications Discontinued / Stopped on this date on 02/20/2020 FLUoxetine HCl 20 MG Oral Tablet Provider : Diagnosis: Last Documented On 1 11:01AM By BABAR NOBLE ; [facility] New / Renewed during this visit BABAR DELGADO on 04/16/2021 Debra 0.35 MG Oral Tablet Provider: BABAR Lizama 28 day supply: 28 tablet, 2 refills Diagnosis: Encounter for contraceptive management, unspecified 1 daily START PILLS THE T WEDNESDAY AFTER NEXT MENSES BEGINS FINISH ALL PILLS IN PACK and back first cycle Pharmacy: [address], [phone] - Last Documented On 2 3:50PM By BABAR NOBLE ; [facility] Current Medications (continue as prescribed) Topiramate 25 MG Oral Tablet 04/16/2021 Provider: Diagnosis: Last Documented On 1 11:01AM By BABAR NOBLE ; [facility] FLUoxetine HCl 40 MG Oral Capsule 04/16/2021 Provide r: Diagnosis: Last Documented On 1 11:02AM By BABAR NOBLE ; [facility] Past Medications on file Norlyda 0.35 MG Oral Tablet 06/16/2022 - 05/18/2023 Provider: BABAR DELGADO Diagnosis: Encounter for contraceptive management, unspecified One tablet daily Last Documented On 2 10:39AM By BABAR NOBLE ; [facility] metroNIDAZOLE 0.75% Vaginal Gel 07/31/2021 [...] On 2 3:19PM By BABAR SANCHEZ ; [facility] levoFLOXacin 750 MG Oral Tablet 03/23/2021 - 03/30/2021 Provider: BABAR COLVIN RN [facility] Diagnosis: Acute vulvitis One tablet daily Last Documented On 1 8:49AM By BABAR SANCHEZ ; [facility] Azithromycin 500 MG Oral Tablet 02/23/2021 - 02/24/2021 Provider: BABAR COLVIN RN [facility] Diagnosis: 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 BUM X 1 MONTH Last Documented On 9 3:04PM By BABAR NOBLE ; [facility] Aviane 0.1-20MG-MCG Oral Tablet 05/18/2018 - 03/22/2019 Provider: BABAR COLVIN RN [facility] Diagnosis: Dysmenorrhea, unspecified One tablet daily TAKE DIRECTED Last Documented On 8 3:52PM By BABAR NOBLE ; [facility] Medications Administered Includes: Administered Medications from [...] Last Documented: On 04/16/2021 10:39A M ; [facility] Results Includes: Results discussed during this encounter No Results Recorded For Specified Dates History of Present Illness Includes: History of Present Illness from this encounter No History of Present Illness Recorded Social History Description Last Updated Tobacco non-user 04/16/2021 Last Documented On 11:06AM ; [facility] Smoking Status Unknown Procedures and Surgical History Includes: Procedures from this encounter Procedures Code Diagnosis Performing Provider Service L ocation Service Date evaluation of contraceptive history performed Last Documented On 10:58AM ; [facility] education about contraceptio n performed Pt [...] 1st cycle Last Documented On 11:06AM ; [facility] reporting of contraception complications performed Last Documented On 10:58AM ; [facility] Surgical History Last Updated Surgical / procedural history [place] martin th removal 02/16/2019 Last Documented On 10:35AM ; [facility] Medical History Includes: Medical History addressed during this encounter Description Last Updated Sexually active 2 PARTNERS IN LAST YEAR 06/16/2022 Last Documented On 10:35AM ; [facility] Contraception: [id number]% 04/16/2021 Last Documented On 11:06AM ; [facility] Primary Care Provider: Dr Desir and Dr. 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 Last Documented On 1 10:35AM ; [facility] No recent change in medical history 02/09 Last Documented On 1 10:35AM ; [facility] 0 05/18/2018 Last Documented On 1 10:35AM ; [facility] History of Gardasil all [address] Desir 02/15/2018 Last Documented On 1 10:35AM ; [facility] Family History Includes: Family History addressed during this encounter Description Last Updated Family history unchanged 02/20/2020 Last Documented On 1 10:35AM ; [facility] Maternal grandfather's history of diabet es mellitus mgf 02/20/2020 Last Documented On 1 10:35AM ; [facility] Maternal grandmother's histo ry of malignant female breast neoplasm materal grandmother and great grandmother 02/20/2020 Last Documented On 1 10:35AM ; [facility] Family history of malignant female breast neoplasm materal grandmother and great grandmother 02/16/2019 Last Documented On 1 10:35AM ; [facility] Maternal grandmother's history of diabet es mellitus maternal grandparents 02/15/2018 Last Documented On 1 10:35AM ; [facility] Review of Systems Includes: Review [...] Active Last Documented On 2 10:02AM ; [facility] Encounters Encounter Provider Location Date Check-In Time Check-Out Time Diagnosis FOLLOW UP BABAR COLVIN RN [facility] 04/16/20 21 10:31AM 10:57AM Contraceptive Management: Initiate Contraception Insurance Includes: Active Insurance Policies Plan Name Member ID Group # Subscriber Relationship Effect renata Dates 1 - [employer]NA [id number] SHARAD TAYLOR Self 2 - [id number] RODRIGUEZ Child Clinical Notes Includes: Clinical Notes from this encounter No Clinical Notes Recorded
--- OUTSIDE RECORDS SUMMARY | 2024-10-27 23:36 | XMS_ITS | Clinical Summary ---
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 Asher Bauer Family history of malignant neoplasm of breast 10/13/2018 BABAR COLVIN RN HEATHER Active Last Documented On 10/13/2018 9:49AM ; [facility] Note: MGM in 50's ER+ [place]+ HER 2 - Plan of Treatment No Plan of Treatment Recorded Assessments Includes: Assessments from this encounter Findings - Vaginitis - Last Documented On 07/31/2021 8:06AM ; [facility] Medical Equipment - Implanted Devices Includes: Current Devices No Medical Equipment Recorded Medications Includes: Medications discussed during this encounter and other current Medications New / Renewed during this visit BABAR SCHAEFER on 07/31/2021 metroNIDAZOLE 0.75% Vaginal Gel Provider: BABAR SCHAEFER 5 day supply: 70 gram, 0 refills Diagnosis: Acute vaginitis as directed 1 JADON PER VAGINA DAILY X 5 Pharmacy : [address], [phone] - Last Documented On 2 8:16AM By BABAR NOBLE ; [facility] Current Medications (continue as prescribed) Topiramate 25 MG Oral Tablet 04/16/2021 Provider: Diagnosis: Last Documented On 1 11:01AM By BABAR NOBLE ; [facility] FLUoxetine HCl 40 MG Oral Capsule 04/16/2021 Provide r: Diagnosis: Last Documented On 1 11:02AM By BABAR NOBLE ; [facility] Past Medications on file Norlyda 0.35 MG Oral Tablet 06/16/2022 - 05/18/2023 Provider: BABAR COLVIN RN HEATHER Diagnosis: Encounter for contraceptive management, unspecified One tablet daily Last Documented On 2 10:39AM By BABAR NOBLE ; [facility] Fluconazole 150 MG Oral Tablet 07/28/2021 - 07/30/2021 Provider: BABAR SCHAEFER Diagnosis: Acute vaginitis 1 daily Pt. 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 BUM X 1 MONTH Last Documented On 9 3:04PM By BABAR NOBLE ; [facility] Aviane 0.1-20MG-MCG Oral Tablet 05/18/2018 - 03/22/2019 Provider: BABAR SCHAEFER Diagnosis: Dysmenorrhea, unspecified One tablet daily TAKE DIRECTED Last Documented On 8 3:52PM By BABAR NOBLE ; [facility] Medications Administered Includes: Administered Medications from this encounter No Administered Medications Recorded Results Includes: Results discussed during this encounter BACTERIAL VAGINOSIS PANEL(AFFIRM SWAB) [facility] Laboratory Ordered by BABAR COLVIN RN HEATHER on 07/28/[address] [place] [address], [phone] Collected: 07/28/2021 Report ed: 07/31/2021 07:24 tel: Last Documented On 2 8:17AM ; [facility] Reviewed by BABAR COLVIN RN HEATHER on 07/31/2021; All test results are final unless otherwise noted. TRICHOMONAS: NOT DETECTED (NOT DETECTED) N (Normal) Last Documented On 2 7:40AM ; [facility] Note: Responsible Observer: (rfl) GARDNERELLA: DETECTED (NOT DETECTED) A (Abnormal) Last Documented On 2 7:40AM ; [facility] Note: Increased levels of G. vaginalis m ay not be significantin the absence of signs and symptoms of bacterialvaginosis.Responsible Observer: (rfl) BRIJESH: NOT DETECTED (NOT DETECTED) N (Normal) Last Documented On 2 7:40AM ; [facility] Note: THIS TEST WAS PERFORMED AT:[email or web address] [id number] [address] [facility] [place] [address]KREEIPF BECKER,DO,MPHResponsible Observer: (rfl) History of Present Illness Includes: History of Present Illness from this encounter No History of Present Illness Recorded Social History No Social History Recorded - Smoking Status Unknown Procedures and Surgical History Surgical History Last Updated Surgical / procedural history [place] martin th removal 02/16/2019 Last Documented On 2 8:05AM ; [facility] Medical History Includes: Medical History addressed during this encounter Description Last Updated Contraception: % 06/16/2022 Last Documented On 2 8:05AM ; [facility] Sexually active 2 PARTNERS IN LAST YEAR 06/16/2022 Last Documented On 2 8:05AM ; [facility] LMP: 07/12/2021 Last unprotected 04/202106/16/2022 Last Documented On 2 8:05AM ; [facility] Primary Care Provider: Dr Desir and Dr. 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 Last Documented On 2 8:05AM ; [facility] No recent change in medical history 02/09 Last Documented On 2 8:05AM ; [facility] 0 05/18/2018 Last Documented On 2 8:05AM ; [facility] History of Gardasil all [address] Desir 02/15/2018 Last Documented On 2 8:05AM ; [facility] Family History Includes: Family History addressed during this encounter Description Last Updated Family history unchanged 02/20/2020 Last Documented On 2 8:05AM ; [facility] Maternal grandfather's history of diabet es mellitus mgf 02/20/2020 Last Documented On 2 8:05AM ; [facility] Maternal grandmother's histo ry of malignant female breast neoplasm materal grandmother and great grandmother 02/20/2020 Last Documented On 2 8:05AM ; [facility] Family history of malignant female breast neoplasm materal grandmother and great grandmother 02/16/2019 Last Documented On 2 8:05AM ; [facility] Maternal grandmother's history of diabet es mellitus maternal grandparents 02/15/2018 Last Documented On 2 8:05AM ; [facility] Review of Systems Includes: Review of Systems [...] Active Last Documented On 2 10:02AM ; [facility] Encounters Encounter Provider Location Date Check-In Time Check-Out Time Diagnosis CHART UPDATE BABAR COLVIN RN [facility] 07/31/2021 8:04AM 11:59PM Vaginitis Insurance Includes: Active Insurance Policies Plan Name Member ID Group # Subscriber Relationship Effect renata Dates 1 - [employer] [id number] SHARAD [facility] 2 - [facility] [id number] YANEZ Child Clinical Notes Includes: Clinical Notes from this encounter No Clinical Notes Recorded
--- OUTSIDE RECORDS SUMMARY | 2024-10-27 23:36 | XMS_ITS | Clinical Summary ---
Author Organization [facility] Address [address] [place] [address] Phone Care Team Providers Care Skin Care Specialist Name Role Phone VAZQUEZ REY, KAVIN Shahram Unavailable [phone] Reason for Visit and Chief Complaint visit for: contraceptive management - The Chief Complaint is: Vaginal irritation that started a couple days ago Problems Includes: Problems addressed during this encounter and other active Problems All Visits Onset Date Resolved Date Provider Condition S tatus Depression Recurrent 04/16/2021 BABAR COLVIN RN [facility] Active Last Documented On 04/16/2021 10:43AM ; [facility] Note: history of Common Migraine W/o Aura W/o Intractable Migraine W/o Status Migrainosus 02/20/2021 BABAR COLVIN RN HEATHER Active Last Documented On 02/20/2021 11:55AM ; [facility] Note: Dr. Asher Bauer Family history of malignant neoplasm of breast 10/13/2018 BABAR COLVIN RN HEATHER Active Last Documented On 10/13/2018 9:49AM ; [facility] Note: MGM in 50's ER+ [place]+ HER 2 - Plan of Treatment Instructions to patient Instructions for patient : K eep the area around the vulva dry. Allow the area to have exposure to air. Avoid irritants such as fabric softeners and perfumed soaps.~ Last Documented On 2 3:04PM ; [facility] Education and Decision Aids were provided during visit for: Patient counseling : Use of contraceptives discussed in detail including rare occurrence of heart attack, stroke, and leg clots. Patient understands that smoking increases the risk of serious side effects with any steroid-based contraceptive method Last Documented On 2 3:13PM ; [facility] Assessments Includes: Assessments from this encounter Findings - Vaginitis - Last Documented On 07/28/2021 3:15PM ; [facility] - Encounter for contraceptive surveillance, unspecified - Last Documented On 07/28/2021 3:15PM ; [facility] Instructions Includes: Instructions from this encounter Instructions to patient Instructions for patient : K eep the area around the vulva dry. Allow the area to have exposure to air. Avoid irritants such as fabric softeners and perfumed soaps.~ Last Documented On 2 3:04PM ; [facility] Education and Decision Aids were provided during visit for: Patient counseling : Use of contraceptives discussed in detail including rare occurrence of heart attack, stroke, and leg clots. Patient understands that smoking increases the risk of serious side effects with any steroid-based contraceptive method Last Documented On 2 3:13PM ; [facility] Medical Equipment - Implanted [...] unspecified One tablet daily Pharmacy: Julia Bashir [facility]) - [address] [facility], [phone] - Last Documented On 2 10:23AM By BABAR SCHAEFER- ; [facility] Fluconazole 150 MG Oral Tablet Provider: BABAR SCHAEFER 2 day supply: 2 tablet, 0 refills Diagnosis: Acute vaginitis 1 daily Pt. is to take 1 now and then repeat in 3 days Pharmacy: [facility] - [address] [facility], [phone] - Last Documented On 2 3:19PM By BABAR NOBLE ; [facility] Current Medications (continue as prescribed) Topiramate 25 MG Oral Tablet 04/16/2021 Provider: Diagnosis: Last Documented On 1 11:01AM By BABAR NOBLE ; [facility] FLUoxetine HCl 40 MG Oral Capsule 04/16/2021 Provide r: Diagnosis: Last Documented On 1 11:02AM By BABAR NOBLE ; [facility] Past Medications on file Norlyda 0.35 MG Oral Tablet 06/16/2022 - 05/18/2023 Provider: BABAR SCHAEFER Diagnosis: Encounter for contraceptive management, unspecified One tablet daily Last Documented On 2 10:39AM By BABAR NOBLE ; [facility] metroNIDAZOLE 0.75% Vaginal Gel 07/31/2021 - 08/05/2021 Provider: BABAR SCHAEFER Diagnosis: Acute vaginitis as directed 1 JADON PER VAGINA DAILY X 5 Last Documented On 2 8:16AM By BABAR NOBLE ; [facility] levoFLOXacin 750 MG Oral Tablet 03/23/2021 - 03/30/2021 Provider: BABAR SCHAEFER Diagnosis: Acute vulvitis One tablet daily Last Documented On 1 8:49AM By BABAR NOBLE ; [facility] Azithromycin 500 MG Oral Tablet 02/23/2021 - 02/24/2021 Provider: BABAR SCHAEFER Diagnosis: 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 BUM X 1 MONTH Last Documented On 9 3:04PM By BABAR NOBLE ; [facility] Aviane 0.1-20MG-MCG Oral Tablet 05/18/2018 - 03/22/2019 Provider: BABAR COLVIN RN HEATHER BC Diagnosis: Dysmenorrhea, unspecified One tablet daily TAKE DIRECTED Last Documented On 8 3:52PM By BABAR NOBLE ; [facility] Medications Administered Includes: Administered [...] 1.6 Last Documented: On 07/28/2021 3:00PM ; [facility] Results Includes: Results discussed during this [...] instructions Last Documented On 2 3:13PM ; [facility] Clinical summary provided to patient Last Documented On 2 3:13PM ; [facility] Surgical History Last Updated Surgical / procedural history [place] martin th removal 02/16/2019 Last Documented On 2 2:57PM ; [facility] Medical History Includes: Medical History addressed during this encounter Description Last Updated Contraception: [id number] 06/16/2022 Last Documented On 2 2:57PM ; [facility] Sexually active 2 PARTNERS IN LAST YEAR 06/16/2022 Last Documented On 2 2:57PM ; [facility] Primary Care Provider: Dr Desir and Dr. 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 Last Documented On 2 2:57PM ; [facility] No recent change in medical history 02/09 Last Documented On 2 2:57PM ; [facility] 0 05/18/2018 Last Documented On 2 2:57PM ; [facility] History of Gardasil all [address] Desir 02/15/2018 Last Documented On 2 2:57PM ; [facility] Family History Includes: Family History addressed during this encounter Description Last Updated Family history unchanged 02/20/2020 Last Documented On 2 2:57PM ; [facility] Maternal grandfather's history of diabet es mellitus mgf 02/20/2020 Last Documented On 2 2:57PM ; [facility] Maternal grandmother's histo ry of malignant female breast neoplasm materal grandmother and great grandmother 02/20/2020 Last Documented On 2 2:57PM ; [facility] Family history of malignant female breast neoplasm materal grandmother and great grandmother 02/16/2019 Last Documented On 2 2:57PM ; [facility] Maternal grandmother's history of diabet es mellitus maternal grandparents 02/15/2018 Last Documented On 2 2:57PM ; [facility] Review of Systems Includes: Review [...] Active Last Documented On 2 10:02AM ; [facility] Encounters Encounter Provider Location Date Check-In Time Check-Out Time Diagnosis PROBLEM VISIT BABAR COLVIN RN [facility] 07/28/19 22 2:53PM 3:12PM Encounter For Contraceptive Surveillance, Unspecified,Vagi nitis Insurance Includes: Active Insurance Policies Plan Name Member ID Group # Subscriber Relationship Effect renata Dates 1 - [employer] [id number] SHARAD TAYLOR Self 2 - [facility] [id number] YANEZ Child Clinical Notes Includes: Clinical Notes from this encounter No Clinical Notes Recorded
--- OUTSIDE RECORDS SUMMARY | 2024-10-27 23:36 | XMS_ITS | Clinical Summary ---
Author Organization [facility] Address [address] [place] [address] Care Team Providers Care Tentering Machine Off Bearer Name Role Phone Oscar Sterling MD Primary Care Provider [phone] Allergies No known active allergies Medications Norethin-Eth [...] patient's age to complete this topic Insurance [facility] Care Teams Tentering Machine Off Bearer Relationship Specialty Start Date End Date Oscar Sterling MD PCP - General FAMILY PRACTICE 05/19/21
--- NOTE | 2024-10-27 23:49 | ED_ITS ---
HPI - General Adult General Chief complaint: Unspecified Stated complaint: not feeling well Time Seen by Provider: 10/27/24 23:10 Source: patient Mode of arrival: ambulatory Limitations: no limitations History of Present Illness HPI narrative: This is a 24-year-old female that presents to the emergency department for nausea, vomiting and diarrhea. Ongoing over the last 3 days. She tried to go to work today, but felt too fatigued. She also reports a headache. Related Data Allergies Allergy/AdvReac Type Severity Reaction Status Date / Time No Known Allergies Allergy Verified 10/03/24 08:26 Review of Systems 2 Review of Systems: CONSTITUTIONAL: Denies fever ENT: Denies rhinorrhea, congestion, sore throat RESPIRATORY: Denies cough GASTROINTESTINAL: Reports abdominal pain, nausea, vomiting, and diarrhea. GENITOURINARY: Denies dysuria All systems reviewed & are unremarkable except as noted in HPI and below PMFSH Past Medical History Medical History Pes planus of both feet Posterior tibial tendinitis, left leg Chronic migraine w/o aura w/o status migrainosus, not intractable Hx of self-harm COVID-19 Anxiety and depression OCD (obsessive compulsive disorder) Surgical History Surgical History H/O knee surgery (~2019) Family History Family History Grandparent Breast cancer Grandparent Heart disease Diabetes mellitus Hypertension Social History Social History Smoking status: Former smoker Tobacco type: e-cigarettes/vaping Alcohol intake: current Substance use: former Substance use type: marijuana Last use: 7 months ago, no longer uses it Do You Feel Safe in your Home?: Yes Lack of Transportation: No Lack of Food: Sometimes True Current Housing: I Have Housing Concerned About Future Housing: No Difficulty Paying Gas/Electric Bills: No Difficulty Paying for Meds: No Currently Unemployed: No Education: High School Diploma/GED Difficulty w/ Childcare or Family Care: No Occupation/Education: occupation Additional occupation/education comments: [address] Gender identity (if verbalized by the patient): Female Exam 2 Narrative: GENERAL: Well-appearing, well-nourished, and in no acute distress. HEAD: Normocephalic, atraumatic. EYES: EOMI. CHEST: Clear to auscultation. No respiratory distress. No wheezes rales or rhonchi HEART: Regular rate and rhythm. No murmur heard. Normal peripheral pulses. ABDOMEN: Soft, nontender, nondistended, normal active bowel sounds. EXTREMITIES: Normal range of motion. No edema. SKIN: Warm, dry, no rash. NEURO: No focal deficits. Alert and oriented x3. PSYCH: Normal mood and affect Course Course Emergency Course: Patient updated on her workup and agrees with plan of care Vital Signs Vital signs: Vital Signs Temperature 97.8 F 10/27/24 22:24 Pulse Rate 54 L 10/27/24 22:24 Respiratory Rate 14 10/27/24 22:24 Blood Pressure 111/77 10/27/24 22:24 Pulse Oximetry 100 10/27/24 22:24 Oxygen Delivery Room Air 10/27/24 22:24 Temperature 97.8 F 10/27/24 22:24 Pulse Rate 77 10/28/24 01:32 Respiratory Rate 18 10/28/24 01:32 Blood Pressure 111/65 10/28/24 01:32 Pulse Oximetry 100 10/28/24 01:32 Oxygen Delivery Room Air 10/27/24 22:24 Medical Decision Making [facility] Narrative Medical decision making narrative: Patient presents emergency department for nausea, vomiting and diarrhea. Ongoing over the last couple of days. She is afebrile and nontoxic appearing. Cbc without leukocytosis. Metabolic panel and lipase without concerning findings. Urine without evidence of infection. test is negative. Influenza and COVID screens are negative. Patient updated on her workup and agrees with plan of care. She is to follow up with primary provider. She was given warnings to return to the ER Differential Diagnosis Differential Diagnosis: Dehydration, electrolyte derangement, COVID, influenza, viral syndrome, gastroenteritis Vital Signs Vital Signs: Vital Signs Temperature 97.8 F 10/27/24 22:24 Pulse Rate 54 L 10/27/24 22:24 Respiratory Rate 14 10/27/24 22:24 Blood Pressure 111/77 10/27/24 22:24 Pulse Oximetry 100 10/27/24 22:24 Oxygen Delivery Room Air 10/27/24 22:24 Temperature 97.8 F 10/27/24 22:24 Pulse Rate 77 10/28/24 01:32 Respiratory Rate 18 10/28/24 01:32 Blood Pressure 111/65 10/28/24 01:32 Pulse Oximetry 100 10/28/24 01:32 Oxygen Delivery Room Air 10/27/24 22:24 Lab Data Lab results reviewed: Yes I reviewed the patient's lab results. 10/28/24 00:16 10/28/24 00:16 Labs: Lab Results 10/27/24 10/28/24 10/28/24 Range/Units 22:36 00:16 01:01 WBC 5.6 (4.5-10.0) K/mm3 RBC 3.63 L (4.2-5.4) M/mm3 Hgb 10.9 L (12.0-15.0) g/dL Hct 34.2 L (37.0-47.0) % MCV 94.2 (80-100) fl MCH 30.0 (26-34) pg MCHC 31.9 L (32-36) g/dl RDW 12.5 (11.5-14.5) % Plt Count 184 (150-375) k/mm3 MPV 10.0 (7.4-10.4) fl Immature Gran % (Auto) 0.2 (0-0.5) % Neut % (Auto) 47.7 (45.5-73.1) % Lymph % (Auto) 36.9 (18.3-44.2) % [place] % (Auto) 10.0 H (2.6-8.5) % Eos % (Auto) 4.5 H (0-4.4) % Baso % (Auto) 0.7 (0.2-1.2) % Lymph # (Auto) 2.06 (0.9-3.2) K/mm3 [place] # (Auto) 0.6 (0.1-0.6) K/mm3 Eos # (Auto) 0.3 (0-0.3) K/mm3 Baso # (Auto) 0.0 (0.0-0.1) K/mm3 Abs Immat Gran (auto) 0.01 (0.00-0.031) K/mm3 Absolute Neuts (auto) 2.7 (1.3-6.7) K/mm3 Absolute Nucleated RBC 0.000 (0.0-0.012) K/mm3 Nucleated RBC % 0.0 (0.0-0.2) % Sodium 139 (137-145) mmol/L Potassium 4.0 (3.4-5.0) mmol/L Chloride 104 (98-107) mmol/L Carbon Dioxide 24 (22-30) mmol/L Anion Gap 11 (4-12) mmol/L BUN 11 (7-17) mg/dL Creatinine 0.61 L (0.7-1.0) mg/dL Estim Creat Clear Calc 102 ml/min Estimated GFR > 60 (59 - ) Glucose 85 (65-110) mg/dL Calcium 8.6 (8.4-10.2) mg/dL Total Bilirubin 0.3 (0.2-1.3) mg/dL AST 27 (14-36) U/L ALT 18 (6-35) U/L Alkaline Phosphatase 31 L (38-126) U/L Total Protein 7.0 (6.3-8.2) g/dL Albumin 4.1 (3.5-5.1) g/dL Lipase 96 (23-300) U/L Urine Color Yellow (Yellow) Urine Appearance Clear (Clear) Urine pH 7.5 (5.0-9.0) Ur Specific [place] 1.008 (1.001-1.035) Urine Protein Negative (Negative) mg/dL Urine Glucose (UA) Negative (Negative) mg/dL Urine Ketones Negative (Negative) mg/dL Ur Blood (Man) 2+ H (Negative) Urine Nitrate Negative (Negative) Urine Bilirubin Negative (Negative) Urine Urobilinogen 1.0 (<2.0) mg/dL Leukocyte Esterase Rfl Trace H (Negative) RAMIRO/UL Urine RBC 0-2 (0-2) /hpf Urine WBC 0-5 (0-3) /hpf Ur Squamous Epith Cells None seen (Few) /hpf Urine Bacteria None seen /hpf Urine Casts 0-2 POC Urine HCG, Qual (Negative) Influenza A (RT-PCR) Negative (Negative) Influenza B (RT-PCR) Negative (Negative) RSV (RT-PCR) Negative (Negative) SARS-CoV-2 RNA (RT-PCR) Negative (Negative) 10/28/24 Range/Units 01:04 WBC (4.5-10.0) K/mm3 RBC (4.2-5.4) M/mm3 Hgb (12.0-15.0) g/dL Hct (37.0-47.0) % MCV (80-100) fl MCH (26-34) pg MCHC (32-36) g/dl RDW (11.5-14.5) % Plt Count (150-375) k/mm3 MPV (7.4-10.4) fl Immature Gran % (Auto) (0-0.5) % Neut % (Auto) (45.5-73.1) % Lymph % (Auto) (18.3-44.2) % [place] % (Auto) (2.6-8.5) % Eos % (Auto) (0-4.4) % Baso % (Auto) (0.2-1.2) % Lymph # (Auto) (0.9-3.2) K/mm3 [place] # (Auto) (0.1-0.6) K/mm3 Eos # (Auto) (0-0.3) K/mm3 Baso # (Auto) (0.0-0.1) K/mm3 Abs Immat Gran (auto) (0.00-0.031) K/mm3 Absolute Neuts (auto) (1.3-6.7) K/mm3 Absolute Nucleated RBC (0.0-0.012) K/mm3 Nucleated RBC % (0.0-0.2) % Sodium (137-145) mmol/L Potassium (3.4-5.0) mmol/L Chloride (98-107) mmol/L Carbon Dioxide (22-30) mmol/L Anion Gap (4-12) mmol/L BUN (7-17) mg/dL Creatinine (0.7-1.0) mg/dL Estim Creat Clear Calc ml/min Estimated GFR (59 - ) Glucose (65-110) mg/dL Calcium (8.4-10.2) mg/dL Total Bilirubin (0.2-1.3) mg/dL AST (14-36) U/L ALT (6-35) U/L Alkaline Phosphatase (38-126) U/L Total Protein (6.3-8.2) g/dL Albumin (3.5-5.1) g/dL Lipase (23-300) U/L Urine Color (Yellow) Urine Appearance (Clear) Urine pH (5.0-9.0) Ur Specific [place] (1.001-1.035) Urine Protein (Negative) mg/dL Urine Glucose (UA) (Negative) mg/dL Urine Ketones (Negative) mg/dL Ur Blood (Man) (Negative) Urine Nitrate (Negative) Urine Bilirubin (Negative) Urine Urobilinogen (<2.0) mg/dL Leukocyte Esterase Rfl (Negative) RAMIRO/UL Urine RBC (0-2) /hpf Urine WBC (0-3) /hpf Ur Squamous Epith Cells (Few) /hpf Urine Bacteria /hpf Urine Casts POC Urine HCG, Qual Negative (Negative) Influenza A (RT-PCR) (Negative) Influenza B (RT-PCR) (Negative) RSV (RT-PCR) (Negative) SARS-CoV-2 RNA (RT-PCR) (Negative) Critical Care Time Critical Care Time Critical Care Time: No Discharge Plan Discharge Clinical Impression: Gastroenteritis Patient Disposition: Home Condition: Stable Instructions: Gastroenteritis (ED), Anemia (ED) Additional Instructions: Return to the ER if you experience fever, abdominal pain with nausea and vomiting, you are unable to keep down liquids or solids, blood in the stool, pain or burning with urination, blood in the urine or any other symptoms that are concerning to you Small, frequent meals. Wing diet. Remain well hydrated. Ondansetron as needed for nausea Follow up with primary care doctor Patient Language: Kyrgyz Prescriptions: New ondansetron 4 mg tablet,disintegrating 4 mg PO Q8H PRN (Reason: nausea and vomiting) Qty: 10 0RF No Action triamcinolone acetonide 0.5 % cream 1 applic topical BID Qty: 15 0RF prednisone 10 mg tablet 10 mg PO DIRECTED Qty: 30 0RF Rx Instructions: Take 40 mg (4 tablets) for 3 days, then take 30 mg (3 tablets for 3 days), then take 20 mg (2 tablets) for 3 days, then take 10 mg (1 tablet) for 3 days Follow-up/Referrals: Alma Delia Sterling MD [Primary Care Provider] - Stand Alone Forms: Work/School Release IP
[2024-10-28] MEDS: ONDANSETRON INJ 4 MG/2 ML VIAL IV PUSH (00:17)
[2024-10-28 00:23] LABS: Basophils Percent Auto 0.7 % (0.2-1.2); Eosinophils Absolute Auto 0.3 K/mm3 (0-0.3); Eosinophils Percent Auto 4.5 % (0-4.4); Hematocrit 34.2 % (37.0-47.0); Hemoglobin 10.9 g/dL (12.0-15.0); Immature Granulocyte Absolute 0.01 K/mm3 (0.00-0.031); Immature Granulocyte Percent A 0.2 % (0-0.5); Lymphocytes Absolute Auto 2.06 K/mm3 (0.9-3.2); Lymphocytes Percent Auto 36.9 % (18.3-44.2); Mean Corpuscular HGB Conc 31.9 g/dl (32-36); Mean Corpuscular Volume 94.2 fl (80-100); Monocytes Absolute Auto 0.6 K/mm3 (0.1-0.6); Neutrophils Absolute Auto 2.7 K/mm3 (1.3-6.7); Neutrophils Percent Auto 47.7 % (45.5-73.1); Platelet Count Result 184 k/mm3 (150-375); Red Blood Count 3.63 M/mm3 (4.2-5.4); Red Cell Distribution Width 12.5 % (11.5-14.5); White Blood Count 5.6 K/mm3 (4.5-10.0)
[2024-10-28 00:36] LABS: Alanine Aminotransferase 18 U/L (6-35); Albumin Level 4.1 g/dL (3.5-5.1); Alkaline Phosphatase 31 U/L (38-126); Anion Gap 11 mmol/L (4-12); Aspartate Amino Transferase 27 U/L (14-36); Bilirubin,Total 0.3 mg/dL (0.2-1.3); Blood Urea Nitrogen 11 mg/dL (7-17); Calcium 8.6 mg/dL (8.4-10.2); Carbon Dioxide 24 mmol/L (22-30); Chloride 104 mmol/L (98-107); Estimated CRCL calculation 102 ml/min; Estimated Glomerular Filt Rate > 60; Glucose 85 mg/dL (65-110); Lipase 96 U/L (23-300); Sodium 139 mmol/L (137-145)
[2024-10-28 01:15] LABS: Add Urine Microscopic? YES; Appearance Urine Clear (Clear); Bacteria Urine None Seen /hpf; Bilirubin Urine Negative (Negative); Blood Urine 2+ (Negative); Color Urine Yellow (Yellow); Glucose Urine UA Negative (Negative); Ketones Urine Negative (Negative); Leukocyte Esterase Ur Trace LEU/UL (Negative); Nitrate Urine Negative (Negative); Non Pathogenic Casts 0-2; Protein Urine Negative (Negative); RBC Urine 0-2 /hpf (0-2); Specific Grav Ur 1.008 (1.001-1.035); Squamous Epithelial Cell Urine None Seen /hpf (Few); WBC Urine 0-5 /hpf (0-3); pH Urine 7.5 (5.0-9.0)
[2024-10-28 01:23] LABS: BEDSIDEPREGUCG Negative (Negative)
[2024-10-28 01:32] VITALS: BP 111/65; PULSE 77; RESP 18; O2SAT 100
== END 2024-10-28 01:33 | disposition home or self-care (01) ==
PROVIDERS: Emergency Medicine; Emergency Provider Physician Assistant; PCP Family Medicine
DX: K52.9 Noninfective gastroenteritis and colitis, unspecified (principal); Z20.822 Contact with and (suspected) exposure to COVID-19; Z86.16 Personal history of COVID-19; Z87.891 Personal history of nicotine dependence
CPT/HCPCS: 36415; 80053; 81001; 81025; 83690; 85025; 87637; 96374; 99284; J2405

== ENCOUNTER 2025-01-01 01:19 | Day surgery (SDC) | payer OTHER, SELFPAY ==
[2024-12-27 14:14] VITALS: BMI 18.9
--- NOTE | 2024-12-27 14:14 | PC.NURSE ---
Report to the Outpatient Waiting Room, entrance under the green pavilion located off [facility], at time _0630_ on date _30-13-1359_. Planned Procedure Time: _0830_.? Time changes happen often and if your time is changed the preop area will call you the afternoon before. - You and your visitor will be asked to self-screen and do not enter if you have any COVID symptoms. Please call surgeon if you need to reschedule. - A mask is optional within the hospital at this time. Patients may have clear liquids (water, carbonated beverages, clear teas, apple juice) until 3 hours prior to surgery with a maximum of 20 ounces. - No food from midnight until time of surgery and no smoking, or chewing tobacco (or any form of nicotine). No chewing gum, candy or mints. Take only the following medications with a SIP of water on the morning of surgery: ___None DO NOT STOP ANY OF YOUR OTHER PRESCRIPTION MEDICATIONS PRIOR TO SURGERY EXCEPT THE FOLLOWING Hold all vitamins and supplements for 3 days per anesthesiologist. Medications to discontinue per physician Date to take last dose Please no make-up, nail estonian, hairspray, perfume, deodorant, or body powder the day of surgery.? No jewelry (including any body piercings) or valuables the day of surgery, leave them at home.? Please take a shower or bath the night before, or the morning of, surgery with an antibacterial soap.? Wear comfortable, loose fitting clothing.? - Jewelry must be removed prior to entering the operating room.? Rings and piercings that are not removed may be cut off. - The hospital will not accept responsibility for valuables.? - Please leave all valuables, including medications, at home the day of surgery. If you are going home after surgery, a licensed solid waste truck driver must drive you home.? - NO public transportation without another adult if you receive anesthesia. - We recommend that an adult stay with you for 24 hours following discharge. - We also recommend that you do not drive, make important decision, drink alcoholic beverages, or take any drugs that were not prescribed by your health care provider for at least 24 hours after your discharge time. Follow any additional instructions given to you from your surgeon. Telephone instructions given to ___Lary__and asked if any additional questions and then verbalized understanding. Patient advised to call surgeon office or pre surgery nurse liaison [phone] if any additional questions.
[2025-01-01] VITALS (9 sets, daily range): BP systolic 92–103; BP diastolic 49–61; PULSE 42–85; RESP 12–20; TEMP 36.3–36.5; O2SAT 98–100; BMI 19.1
--- NOTE | 2025-01-01 07:22 | WPDHPUPDATE1 ---
History and Physical Update Update Date/Time: 01/01/25 07:22 History and Physical has been reviewed, including an updated exam of the patient. There are NO changes in the patient's condition. Risks, benefits, and alternatives have been discussed and questions answered. Patient agrees to proceed with procedure.
[2025-01-01] MEDS: LACTATED RINGERS 1,000 ML 30 ML IV CONT ×2 (07:55→11:46)
[2025-01-01] MEDS: ACETAMINOPHEN 500 MG TABLET 1000 MG PO (08:00)
[2025-01-01 08:18] LABS: BEDSIDEPREGUCG Negative (Negative)
--- NOTE | 2025-01-01 09:40 | PM.IMHP ---
H&P: HPI History of Present Illness Date/Time: 01/01/25 09:40 Chief Complaint: Recurrent tonsilittis Review of Systems Review of Systems: All systems reviewed & are unremarkable except as noted in HPI and below [facility] Past Medical History Medical History Pes planus of both feet Posterior tibial tendinitis, left leg Chronic migraine w/o aura w/o status migrainosus, not intractable Hx of self-harm COVID-19 Anxiety and depression OCD (obsessive compulsive disorder) Surgical History Surgical History H/O knee surgery (~2019) Family History Family History Grandparent Breast cancer Grandparent Heart disease Diabetes mellitus Hypertension Social History Social History (Updated 11/30/24 @ 13:21 by Funmilayo Leblanc) Social History: Caffeine-coffee Smoking status: Never smoker Alcohol intake: never Substance use: former Substance use type: marijuana Do You Feel Safe in your Home?: Yes Lack of Transportation: No Lack of Food: Sometimes True Current Housing: I Have Housing Concerned About Future Housing: No Difficulty Paying Gas/Electric Bills: No Difficulty Paying for Meds: No Currently Unemployed: No Education: High School Diploma/GED Difficulty w/ Childcare or Family Care: No Living arrangements: with family Occupation/Education: occupation Additional occupation/education comments: [address] Gender identity (if verbalized by the patient): Female Spiritual care concerns: No Meds Home Medications and Allergies Home Medications ?Medication ?Instructions ?Recorded ?Confirmed ?Type No Home Medications 11/30/24 12/27/24 History Allergies Allergy/AdvReac Type Severity Reaction Status Date / Time No Known Allergies Allergy Verified 01/01/25 07:37 Vital Signs Vital Signs - 24 hr 01/01/25 07:37 Temperature 36.5 C Pulse Rate 61 Respiratory Rate 18 Blood Pressure 101/61 Pulse Oximetry 100 Oxygen Delivery Room Air Exam Narrative: cryptic tonsils Assessment and Plan Assessment and plan (1) Chronic tonsillitis: Code(s): J35.01 - Chronic tonsillitis Status: Acute Assessment and Plan: OR for tonsillectomy and adenoidectomy, see hpi for risks discussed. (2) Recurrent tonsillitis: Code(s): J03.91 - Acute recurrent tonsillitis, unspecified Status: Acute (3) Adenoid hypertrophy: Code(s): J35.2 - Hypertrophy of adenoids Status: Acute
--- NOTE | 2025-01-01 10:00 | WPDANESEPPF ---
Anes - Initial Pre Proc Eval Procedure: Operation Date: 01/01/25 09:15 Proposed Procedures p Tonsillectomy And Adenoidectomy - Zachariah Hendrix MD Date/Time: 01/01/25 10:00 Surgeon: Zachariah Hendrix MD Pre Op Diagnosis: chronic tonsillitis, recurrent tonsillitis Patient Data Age: 24 Gender: F Height: 1.63 m Weight: 50.4 kg Last Vital Signs Temp 97.7 F 01/01/25 07:37 Pulse 61 01/01/25 07:37 Resp 18 01/01/25 07:37 BP 101/61 01/01/25 07:37 Pulse Ox 100 01/01/25 07:37 O2 Del Method Room Air 01/01/25 07:37 Allergies Allergy/AdvReac Type Severity Reaction Status Date / Time No Known Allergies Allergy Verified 01/01/25 07:37 Home Medications ?Medication ?Instructions ?Recorded ?Confirmed ?Type No Home Medications 11/30/24 12/27/24 History Laboratory Tests 01/01/25 08:14 POC Urine HCG, Qual Negative (Negative) Patient hx anesthesia problems: none Family hx anesthesia problems: none Results Review: All pre-operative results and documents have been reviewed as part of the pre-operative evaluation. [facility] Past Medical History Medical History Pes planus of both feet Posterior tibial tendinitis, left leg Chronic migraine w/o aura w/o status migrainosus, not intractable Hx of self-harm COVID-19 Anxiety and depression OCD (obsessive compulsive disorder) Surgical History Surgical History H/O knee surgery (~2019) Family History Family History Grandparent Breast cancer Grandparent Heart disease Diabetes mellitus Hypertension Social History Social History Social History: Caffeine-coffee Smoking status: Never smoker Alcohol intake: never Substance use: former Substance use type: marijuana Do You Feel Safe in your Home?: Yes Lack of Transportation: No Lack of Food: Sometimes True Current Housing: I Have Housing Concerned About Future Housing: No Difficulty Paying Gas/Electric Bills: No Difficulty Paying for Meds: No Currently Unemployed: No Education: High School Diploma/GED Difficulty w/ Childcare or Family Care: No Living arrangements: with family Occupation/Education: occupation Additional occupation/education comments: [address] Gender identity (if verbalized by the patient): Female Spiritual care concerns: No Anes - Eval Final PreProcedure Day of Procedure 01/01/25 10:00 Patient weight: normal and thin Lungs: normal air movement Airway: Mallampati scale class II Neurological: alert and oriented Last oral intake: >/= 8 hours ASA classification: I Emergent: no Anesthetic plan: proceed Anesthesia type and monitoring: general ETT and standard monitoring Results Review: All pre-operative results and documents have been reviewed as part of the pre-operative evaluation. Pt denies smoking, overall good health. Informed Consent: The patient's anesthetic plan and its attendant risks and benefits were discussed with the patient/family/POA. Questions were solicited and answers provided to the satisfaction of the patient/family/POA.
--- NOTE | 2025-01-01 10:46 | S_PTH ---
PATIENT: Lary Woodward LOC: [facility] U#:[id number] AGE/SX: 24/F ROOM: RE01/01/[address]: Zachariah Hendrix MD : 2000 BED: DIS: 01/01/2025 SPEC #: [id number] RECD: 01/01/25 13:28 STATUS: DAVE RECuong #: [id number] LAKISHA: 01/01/25 10:[address]: Zachariah Hendrix DEPT: [facility] Surgical RECD BY: Sole Calderon ENTERED: 01/01/25 13:29 SP TYPE: Surgical OTHR DR: Alma Delia Sterling MD Tissues: A - Tonsils Procedures: Gross and Microscopic Level 2
[2025-01-01] MEDS: fentaNYL CITRATE INJ (*CRX) 100 MCG/2 ML VIAL 25 MCG IV PUSH ×5 (11:08→11:55)
--- NOTE | 2025-01-01 11:15 | W.PM.PROC2 ---
Procedure Note - Detailed Date of Procedure 01/01/25 Pre-op Diagnosis chronic tonsillitis, recurrent tonsillitis Post-op Diagnosis Same Procedure Performed Tonsillectomy Surgeon Zachariah Hendrix MD Anesthesia General Indications See above Findings Cryptic tonsils 2 to 3+ non-existent adenoid Description of Procedure Patient identified consent verified the preoperative holding area. Patient brought to the operating room. Time-out performed. General anesthesia induced endotracheal tube secured airway. Patient prepped draped position procedure confirmed 2nd time-out performed. McIvor mouth gag inserted to reveal tonsils described above. They were removed bilaterally in extracapsular plane using Bovie a setting of 8 and 10. Any bleeding was controlled with suction Bovie at a setting of 10 and bipolar to setting of 10. In-between tonsils McIvor mouth gag was lowered reopened allow blood flow to return to the tongue. After the tonsils were out Anesthesia Valsalva to ensure no further bleeding would ensue. Once the tonsils were out and no bleeding was confirmed red rubber catheters were inserted transnasally. The soft palate was suspended anteriorly. A mirror was utilized to the adenoid pad or non-existent. Red rubber catheters removed McIvor mouth gag removed. Care the patient back to Anesthesiology I performed all dictated portions of procedure no complications patient taken to PACU. Estimated Blood Loss 1 Drains No Packing No Pathology Yes Complications No immediate complications Condition Stable Disposition PACU [facility] Billing Surgery - Charge Forward: Surgery Billing
== END 2025-01-01 13:05 | disposition home or self-care (01) ==
PROVIDERS: PCP Family Medicine; Visit Provider Otolaryngology
PROC: (CPT 42826; principal; 2025-01-01 09:15)
DX: J35.01 Chronic tonsillitis (principal)
CPT/HCPCS: 42826; 88302; A9270; J1100; J2003; J2250; J2270; J2405; J2704; J3010; J7120

== ENCOUNTER 2025-04-09 14:44 | Outpatient (CLI) | payer OTHER, SELFPAY ==
--- OUTSIDE RECORDS SUMMARY | 2025-04-09 15:32 | XMS_ITS | Clinical Summary ---
Author Organization [facility] [place] Address [address] [place] [id number] Care Team Providers Care [address] Freight Name Role Phone Raffaele Desir MD Primary Care Provider [phone] Allergies Active Allergy Reactions Criticality Noted Date Comments Lactose Stomach upset Low 03/10/2018 Medications FLUoxetine (PROzac) 20 mg capsule TK 1 C PO Q DAY 0 Active norethindrone-e.e stradioL-iron (LOESTIN 24 FE) 1 mg-20 mcg (24)/75 mg (4) per tablet Take 1 tablet by mouth daily Active aspirin 325 mg enteric coated tabletIndications :Chronic pain of left knee Take 1 tablet (325 mg total) by mouth 2 (two) times a day for 14 days 28 tablet 0 Active ondansetron (ZOFRAN) 4 mg tabletIndications :Chronic pain of left knee Take 1 tablet (4 mg total) by mouth every 6 (six) hours as needed for nausea or vomiting 20 tablet 0 Active Aimovig Autoinjector 140 mg/mL auto-injector 3 Active PreviDent 5000 Booster Plus 1.1 % paste USE TO BRUSH TEETH EVERY NIGHT AT BEDTIME DIRECTED 2 Active norethindrone (MICRONOR) 0.35 mg tablet Take 1 tablet by mouth daily 2 Active SUMAtriptan (IMITREX) 50 mg tablet Take 50 mg by mouth 2 (two) times a day as needed Active topiramate (TOPAMAX) 25 mg tablet Take 25 mg by mouth daily Active Active Problems Problem Noted Date Diagnosed Date Aftercare following surgery of the musculoskelet al system 03/08/2020 Irritable bowel syndrome 06/11/2017 Periumbilical abdominal pain 06/07/2017 Knee pain 02/22/2012 Surgical History Surgery Date Site/Laterality Comments WISDOM TOOTH EXTRACTION Medical History Medical History Date Comments Depression Family History Medical History Relation Name Comments Cholelithiasis Other 1 Family histor y of cholelithiasis - Relation: Grandparent (Added by TW Conv) Diabetes Other 2 Family history of diabetes mellitus - Relation: Grandparent (Added by TW Conv) Relation Name Status Comments Other 1 Other 2 Social History Tobacco Use Types Packs/Day Years Used Date Smoking Tobacco: Never Personal Safety Answer Date Recorded Getting School Help Needed Not on file 09/05 Comments Unknown Sex and Gender Information Value Date Recorded Sex Assigned at Not on file Legal Sex Female 4:26 AM [employer] Gender Identity Not on file Sexual Orientation Not on file 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 on file Not on file Not on file Obstetrics History Last Filed Vital Signs Vital Sign Reading Time Taken Comments Blood Pressure 100/60 09/11/2022 3:08 PM [employer] Pulse 76 09/11/2022 3:08 PM [employer] Temperature 36.9 C (98.5 F) 09/11/2022 3:08 PM [employer] Respiratory Rate 16 09/11/2022 3:08 PM [employer] Oxygen Saturation 99% 09/11/2022 3:08 PM [employer] Inhaled Oxygen Concentration - - Weight 64.4 kg (142 lb) 09/11/2022 3:08 PM [employer] Height 157.5 cm (5' 2) 09/11/2022 3:08 PM [employer] Body Mass Index 25.97 09/11/2022 3:08 PM [employer] Plan of Treatment Health Maintenance Due Date Last Done Comments Cervical Cancer Screening 2002 Depression Screening 2002 Hepatitis C Screening 2002 DTaP/Tdap/Td Vaccine (1 - Tdap) 2013 Varicella Vaccines (1 of 2 - 13+ 2-dose series) 2015 HPV Vaccines (1 - 3-dose series) 2017 Meningococcal B Vaccine (1 o f 2 - Standard) 2018 Hepatitis B Screening 01/25/2020 Regular Well Visit/Exam 18-64 01/25/2020 Influenza Vaccine (#1) 2025 04/16/2020 Pneumococcal vaccine <65 Aged Out No longer eligible based on patient's age to complete this topic Insurance [facility] PPO [employer] OOS [employer] OOS Member Subscriber Plan / Payer (Ef fective 2022-Present) Name:Lary Taylor Relation to Subscriber:Child Name:SHYLA CERDA Date of :1974 (Home) Address: [address] [place] [address] Payer ID:[id number] (NAIC) Type: ALLIANCE Address: [id number] PPO Care Teams [address] Freight Relationship Specialty Start Date End Date Raffaele Desir MD PCP - General 04/29/17
--- OUTSIDE RECORDS SUMMARY | 2025-04-09 15:32 | XMS_ITS | Clinical Summary ---
Author Organization [facility] [employer] Address [address] [place] [address] Care Team Providers Care International Sourcing Manager Name Role Phone Raffaele Desir MD Primary Care Provider [phone] Source Comments [facility] [employer],non-owned Affiliates and Associated Physician Practices is amultiple site organization consisting of ambulatory clinics and hospital sitesin [place], [place], [place] and [place]. This disclosure is being madepursuant to the Care Everywhere program and may not contain all information available regarding this patient. Last updated 18.[facility] [employer] Allergies Active Allergy Reactions Criticality Noted Date [...] Comments Blood Pressure 108/64 09/04/2020 2:04 PM BIOINFORMATICS TEAM MEMBER Pulse 88 09/04/2020 2:04 PM BIOINFORMATICS TEAM MEMBER Temperature 36.7 C (98 F) 09/04/2020 2:04 PM BIOINFORMATICS TEAM MEMBER Respiratory Rate 16 09/04/2020 2:04 PM BIOINFORMATICS TEAM MEMBER Oxygen Saturation 98% 09/04/2020 2:04 PM BIOINFORMATICS TEAM MEMBER Inhaled Oxygen Concentration - - Weight 64.4 kg (142 lb) 09/04/2020 2:04 PM BIOINFORMATICS TEAM MEMBER Height 162.6 cm (5' 4) 09/04/2020 2:04 PM BIOINFORMATICS TEAM MEMBER Body Mass Index 24.37 09/04/2020 2:04 PM BIOINFORMATICS TEAM MEMBER Plan of Treatment Health Maintenance Due Date Last Done Comments HIV SCREENING 2017 HPV VACCINE (1 - 3-dose series) 2017 CHLAMYDIA/GONORRHEA SCREENING 2018 MENINGOCOCCAL (Group B) VACC INE SHARED DECISION-MAKING (1 of 2 - Standard) 2018 HEPATITIS C SCREENING 01/20/2020 DTAP/TDAP/TD VACCINES (1 - Tdap) 2021 HEPATITIS B VACCINE (1 of 3 - 19+ 3-dose series) 2021 PAP SMEAR 2023 DEPRESSION SCREENING 07/12/2024 COVID-19 VACCINE (1 - 2023-2 5 season) 2025 INFLUENZA VACCINE (#1) 2025 04/16/2020 ZOSTER VACCINE (1 of 2) 01/25/2052 HIB VACCINE Aged Out No longer eligi ble based on patient's age to complete this topic MENINGOCOCCAL GROUPS A/C/Y/W VACCINE Aged Out No longer eligible b ased on patient's age to complete this topic PNEUMOCOCCAL VACCINE Aged Out No long er eligible based on patient's age to complete this topic Insurance [employer] SELF PAY NO INSURANCE Member Subscriber Plan / Payer (Ef fective for All Dates) Name:Sharad Taylor Member ID:Not on file Relation to Subscriber:Not on file Name:SHARAD TAYLOR Subscriber ID:Not on file (Home) Address: [facility] [place] [address] Payer ID:Not on file Group ID:Not on file Type:Self Pay Address: [place], [place] [employer] [facility] Address: [address] [address] [place] [address] [facility] Care Teams International Sourcing Manager Relationship Specialty Start Date End Date Raffaele Desir MD [facility] [address] [address] PCP - General Pediatrics 03/10/18
--- OUTSIDE RECORDS SUMMARY | 2025-04-09 15:32 | XMS_ITS | Clinical Summary ---
Author Organization [facility] Address [address] [place] [id number] Care Team Providers Care [employer]ba Business Development Officer Name Role Phone Oscar Sterling MD Primary Care Provider [phone] Allergies No known active allergies Medications Norethin-Eth [...] 8:14 PM CDT Height 162.6 cm (5' 4) 11/28/2021 8:14 PM CDT Body Mass Index [...] 3-dose series) 2021 COVID-19 Vaccine (3 - 2024-2 6 season) 2025 11/21/2020, 10/26/2020 Meningococcal Vaccine Aged Out No [...] patient's age to complete this topic Insurance [facility] Care Teams Sba Business Development Officer Relationship Specialty Start Date End Date Oscar Sterling MD PCP - General FAMILY PRACTICE 05/19/21
[2025-04-09 18:49] LABS: Alanine Aminotransferase 14 U/L (6-35); Albumin Level 4.5 g/dL (3.5-5.1); Alkaline Phosphatase 44 U/L (38-126); Anion Gap 8 mmol/L (4-12); Aspartate Amino Transferase 25 U/L (14-36); Bilirubin,Total 0.4 mg/dL (0.2-1.3); Blood Urea Nitrogen 8 mg/dL (7-17); Calcium 9.1 mg/dL (8.4-10.2); Carbon Dioxide 27 mmol/L (22-30); Chloride 101 mmol/L (98-107); Estimated Glomerular Filt Rate > 60; Glucose 84 mg/dL (65-110); Iron 25 ug/dL (37-170); Potassium 4.0 mmol/L (3.4-5.0); Sodium 136 mmol/L (137-145); Total Protein 7.3 g/dL (6.3-8.2)
[2025-04-09 18:50] LABS: Hematocrit 39.1 % (37.0-47.0); Hemoglobin 12.5 g/dL (12.0-15.0); Immature Granulocyte Percent A 0.0 % (0-0.5); Lymphocytes Absolute Auto 0.75 K/mm3 (0.9-3.2); Mean Corpuscular HGB Conc 32.0 g/dl (32-36); Mean Corpuscular Hemoglobin 30.2 pg (26-34); Mean Corpuscular Volume 94.4 fl (80-100); Nucleated Red Blood Cells Absolute Auto 0.000 K/mm3 (0.0-0.012); Nucleated Red Blood Cells Perc 0.0 % (0.0-0.2); Platelet Count Result 155 k/mm3 (150-375); Red Blood Count 4.14 M/mm3 (4.2-5.4); White Blood Count 2.6 K/mm3 (4.5-10.0)
[2025-04-09 19:06] LABS: Percent Iron Saturation 7 % (20-50)
[2025-04-09 19:25] LABS: Thyroid Stimulating Hormone 0.755 uIU/mL (0.465-4.680)
[2025-04-09 19:31] LABS: Ferritin 29.20 ng/mL (6.24-137)
[2025-04-09 19:44] LABS: Vitamin B12 486.0 pg/mL (239-931)
== END 2025-04-09 14:45 | disposition home or self-care (01) ==
LOC: ANHGOSHLAB 14:45
PROVIDERS: PCP Family Medicine; Visit Provider Student in an Organized Health Care Education/Training Program
DX: D64.9 Anemia, unspecified (principal); R10.84 Generalized abdominal pain; R63.4 Abnormal weight loss; R53.83 Other fatigue
CPT/HCPCS: 36415; 80053; 82607; 82728; 83013; 83540; 83550; 84443; 85025

== ENCOUNTER 2025-04-13 13:44 | Outpatient (CLI) | payer OTHER, SELFPAY ==
--- NOTE | ~2025-04-13 | CT_ITS ---
EXAMINATION: CT abdomen pelvis wo con DATE: 04/13/2025 14:00 INDICATION: Generalized abdominal pain. TECHNIQUE: Computed tomography (CT) of the abdomen and pelvis was performed without intravenous contrast. Automated exposure control and iterative reconstruction technique were employed. The dose-length product was 232.69 mGy-cm. COMPARISON: CT abdomen and pelvis 05/27/2024 FINDINGS: The visualized portions of lung bases are clear without pneumonia or pleural effusion. The heart size is normal. No pericardial effusion. The liver, gallbladder, spleen, pancreas, adrenal glands, and left kidney are normal. There is a 4 mm stone in right kidney. There are no dilated loops of bowel. The appendix is normal. There are no pathologically enlarged lymph nodes. There is a physiologic volume of fluid in the pelvis. There is mild lumbar spondylosis. IMPRESSION: 1. Small nonobstructing right kidney stone. Reviewed, dictated and finalized at location E.
== END 2025-04-13 13:45 | disposition home or self-care (01) ==
LOC: MICIMG 13:45
PROVIDERS: PCP Family Medicine; Visit Provider Student in an Organized Health Care Education/Training Program
DX: R10.84 Generalized abdominal pain (principal); R63.4 Abnormal weight loss; N20.0 Calculus of kidney
CPT/HCPCS: 74176

== ENCOUNTER 2025-05-16 13:24 | Emergency (ER) | payer OTHER, SELFPAY ==
[2025-05-16 13:25] VITALS: BP 118/72; PULSE 58; RESP 16; TEMP 36.9; O2SAT 100
--- OUTSIDE RECORDS SUMMARY | 2025-05-16 14:15 | XMS_ITS | Encounter Summary ---
Author Organization [facility] Address [address] [place] [id number] Care Team Providers Care Celery Wrapper Name Role Phone Alma Delia Sterling MD Primary Care Provider [phone] Reason for Referral * Imaging (Emergency) - New Request Specialty Diagnoses / Procedures Referred By Contac t Referred To Contact RADIOLOGY Procedures CT ABD+PEL W IV CON ONLY Tejas Chandler MD [address] [place] [id number] Phone: tel: fax: Referral ID Status Reason Start Date Expiration Date V isits Requested Visits Authorized [id number] New Request 05/16/2025 05/16/2026 1 1 OR SOFTWARE ARCHITECT Reason for Visit * Reason Comments Back Pain Encounter Details Date Type Department Care Team (Late st Contact Info) Description 05/16/2025 2:15 PM SENIOR SOFTWARE ARCHITECT - 05/16/2025 5:30 PM SENIOR SOFTWARE ARCHITECT Emergency [facility] Emergency Room [address] [place] [address] Tejas Chandler MD [address] [place] [id number] Back Pain Discharge Disposition: Home or Self Care (Routine Discharge) Social History Tobacco Use Types Packs/Day Years [...] Information Value Date Recorded Sex Assigned at Female 05/16/2025 2:58 PM SENIOR SOFTWARE ARCHITECT Legal Sex Female 8:22 PM CDT Gender Identity Not on file Sexual Orientation Not on file documented as of this encounter Last Filed Vital Signs Vital Sign Reading Time Taken Comments Blood Pressure 99/56 05/16/2025 5:28 PM SENIOR SOFTWARE ARCHITECT Pulse 62 05/16/2025 5:28 PM SENIOR SOFTWARE ARCHITECT Temperature 36.1 C (97 F) 05/16/2025 2:28 PM SENIOR SOFTWARE ARCHITECT Respiratory Rate 18 05/16/2025 5:28 PM SENIOR SOFTWARE ARCHITECT Oxygen Saturation 100% 05/16/2025 5:28 PM SENIOR SOFTWARE ARCHITECT Inhaled Oxygen Concentration - - Weight 49.9 kg (110 lb) 05/16/2025 2:30 PM SENIOR SOFTWARE ARCHITECT Height 160 cm (5' 3) 05/16/2025 2:28 PM SENIOR SOFTWARE ARCHITECT Body Mass Index 19.49 05/16/2025 2:28 PM SENIOR SOFTWARE ARCHITECT documented in this encounter Functional Status * Calculated C-SSRS Risk Score (Lifetime/Recent) Answer Date of Assessment Author Status No Risk Indicated 05/16/2025 2:30 PM SENIOR SOFTWARE ARCHITECT Francine Call RN Active * Forrest Suicide Severity Rating Scale (Screener/Recent Self-Report) Question Answer Date of Assessment Author Status 1. Wish to be (Past 1 Month) No 05/16/2025 2:30 PM SENIOR SOFTWARE ARCHITECT Francine Call RN Active 2. Non-Specific Active Suicidal Thoughts (Past 1 Month) No 05/16/2025 2:30 PM SENIOR SOFTWARE ARCHITECT Francine Call RN Active 6. Suicidal Behavior (Lifetime) No 05/16/2025 2:30 PM SENIOR SOFTWARE ARCHITECT Francine Call RN Active documented as of this encounter Discharge Instructions * Attachments The following attachments cannot be sent through Care Everywhere. * Kidney Infection Discharge Instructions (Paraguayan) documented in this encounter Medications at Time of Discharge cephALEXin (KEFLEX) 500 MG capsule Take 1 capsule (500 mg total) by mouth 2 (two) times daily for 10 days. 20 capsule 05/16/2025 05/26/2025 FLUoxetine 20 MG capsule Take 20 mg by mouth daily. Norethin-Eth Estrad-Fe Biphas (LO LOESTRIN FE OR)Indications:28 tablest/months Indications: 28 tablest/month s SUMAtriptan 50 MG tablet Take 50 mg by mouth 2 (two) times daily as needed for Migraine. Max of 4 tablets (200 mg) in 24 hours. topiramate 25 MG tablet Take 25 mg by mouth daily. documented as of this encounter ED Notes * Amber Huerta RN - 05/16/2025 5:28 PM CST Pt ambulatory upon discharge with discharge instructions in hand. Pt verbalized understanding of instructions and follow up OR SOFTWARE ARCHITECT * Tejas Chandler MD - 05/16/2025 2:29 PM CST Chief Complaint Chief Complaint Patient presents with Back Pain History of Present Illness 25-year-old female presenting due to lower pelvic pain associated with nausea since last night. Yesterday pain was on her right side and lasted for approximately 4 hours today pain is located to her left side and persistent. No vomiting or stool changes. No known sick contacts. She was evaluated last month by PMD had CT scan showing R 4 mm stone within the kidney. She notes urinary frequency but no other urinary complaints Medical History ALLERGIES: Review of patient's allergies indicates: No Known Allergies MEDICATIONS: Prior to Admission medications Medication Sig Start Date End Date Taking? Authorizing Provider cephALEXin (KEFLEX) 500 MG capsule Take 1 capsule (500 mg total) by mouth 2 (two) times daily for 10 days. 05/16/25 05/26/25 Yes Tejas Chandler MD FLUoxetine 20 MG capsule Take 20 mg by mouth daily. [facility] Norethin-Eth Estrad-Fe Biphas (LO LOESTRIN FE OR) Indications: 28 tablest/months Doc [facility] SUMAtriptan 50 MG tablet Take 50 mg by mouth 2 (two) times daily as needed for Migraine. Max of 4 tablets (200 mg) in 24 hours. Doc [facility] topiramate 25 MG tablet Take 25 mg by mouth daily. Doc [facility] PAST MEDICAL HISTORY: Past Medical History[1] PAST SURGICAL HISTORY: Past Surgical History[2] FAMILY HISTORY: Family History[3] SOCIAL HISTORY: Social History[4] Review of Systems Review of Systems Physical Exam Filed Vitals: 05/16/25 1430 05/16/25 1434 05/16/25 1630 05/16/25 1728 BP: (!) 82/67 110/62 99/56 Pulse: 67 62 Resp: 18 18 Temp: TempSrc: SpO2: 99% 100% Weight: 49.9 kg (110 lb) Height: Physical Exam Vitals and nursing note reviewed. Constitutional: General: She is not in acute distress. Appearance: Normal appearance. HENT: Head: Normocephalic and atraumatic. Nose: Nose normal. Mouth/Throat: Mouth: Mucous membranes are moist. Eyes: Extraocular Movements: Extraocular movements intact. Conjunctiva/sclera: Conjunctivae normal. Cardiovascular: Rate and Rhythm: Normal rate. Pulses: Normal pulses. Pulmonary: Effort: Pulmonary effort is normal. No respiratory distress. Abdominal: General: There is no distension. Palpations: Abdomen is soft. Tenderness: There is left CVA tenderness. Musculoskeletal: General: Normal range of motion. Cervical back: Normal range of motion and neck supple. Skin: General: Skin is warm and dry. Capillary Refill: Capillary refill takes less than 2 seconds. Neurological: General: No focal deficit present. Mental Status: She is alert and oriented to person, place, and time. Psychiatric: Mood and Affect: Mood normal. Behavior: Behavior normal. Diagnostic Studies / Procedures ELECTROCARDIOGRAMS: No results found for this visit on 05/16/25. LABORATORY STUDIES: Results for orders placed or performed during the hospital encounter of 05/16/25 CBC W/DIFF AUTOMATED Result Value Ref Range WBC 8.23 4.4 - 11.0 x10'3/uL RBC 3.87 (L) 4.50 - 5.10 x10'6/uL HGB 11.9 (L) 12.3 - 15.3 G/DL HCT 35.9 35.9 - 44.6 % MCV 92.8 80.0 - 96.0 FL MCH 30.7 25.3 - 30.9 PG MCHC 33.1 31.0 - 34.1 G/DL RDW 12.6 12.4 - 15.1 % PLT 205 151 - 353 x10'3/uL MPV 9.8 9.6 - 12.0 FL RBC MORPHOLOGY NORMAL PLT MORPH. NORMAL WBC MORPHOLOGY NORMAL LYMPHOCYTES % 13.5 (L) 15.8 - 45.0 % NEUTROPHILS % 78.5 (H) 42.1 - 71.9 % MONOCYTES % 6.2 5.7 - 12.5 % EOSINOPHILS 1.2 0.0 - 5.6 % BASOPHILS 0.4 0.0 - 1.3 % ABS. NEUTROPHILS 6.46 (H) 1.40 - 6.00 x10'3/uL IMMATURE GRANS % 0.2 0.0 - 0.5 % ABS. LYMPHOCYTES 1.11 0.80 - 4.70 x10'3/uL COMPREHENSIVE METABOLIC PANEL Result Value Ref Range GLUCOSE 97 70 - 99 MG/DL BUN 7 7 - 18 MG/DL CREATININE S/P/B 0.75 0.55 - 1.02 MG/DL SODIUM S/P/B 139 136 - 145 MMOL/L POTASSIUM S/P/B 4.1 3.5 - 5.1 MMOL/L CHLORIDE S/P/B 104 100 - 108 MMOL/L CO2 27.7 21 - 32 MMOL/L CALCIUM S/P/B 8.7 8.5 - 10.1 MG/DL BILIRUBIN TOTAL S/P/B 0.6 0.2 - 1.2 MG/DL TOTAL PROTEIN S/P/B 7.0 6.4 - 8.2 G/DL ALBUMIN S/P/B 4.0 3.4 - 5.0 G/DL AST 13 (L) 15 - 37 U/L ALT 14 14 - 55 U/L ALKALINE PHOSPHATASE S/P/B 36 (L) 50 - 136 U/L ANION GAP 7.3 5 - 15 MMOL/L BUN CREATININE RATIO 9.3 6 - 26 A/G RATIO 1.3 1.0 - 2.0 RATIO GFR ESTIMATE >90 >90 ML/MIN/1.73 M2 URINALYSIS, AUTO, COMPLETE Result Value Ref Range COLOR (U) YELLOW TRANSPARENCY HAZY SPECIFIC GRAVITY (U) 1.015 1.000 - 1.030 U PH 8.5 5.0 - 9.0 LEUKOCYTES (U) 1+ (A) NEGATIVE NITRITES NEGATIVE NEGATIVE PROTEIN RANDOM (U) 2+ (A) NEGATIVE GLUCOSE (U) NEGATIVE NEGATIVE KETONES MG/DL (U) NEGATIVE NEGATIVE BILIRUBIN (U) NEGATIVE NEGATIVE BLOOD (U) 2+ (A) NEGATIVE WBC/HPF 50-100 0 - 5 /HPF RBC/HPF 10-25 0 - 5 /HPF EPI/HPF MODERATE /HPF URINE HAYWARD FEW TEST URINE Result Value Ref Range URINE HCG TEST NEG NEGATIVE IMAGING STUDIES CT ABD+PEL W IV CON ONLY Final Result by User, [id number] (05/16 1629) [facility] [address] [place] [address] Examination: CT abdomen and pelvis with IV contrast. Clinical Information: Intermittent abdominal pain worsening for past 2 days. Comparison:No comparison. Technique: IV contrast: 75 mL Isovue 370. Oral contrast: None. Technical comments: Standard technique. Dose reduction: This CT exam was performed using one or more of the following dose reduction techniques: Automated exposure control, adjustment of the mA and/or kV according to patient size, and/or use of iterative reconstruction technique. Findings: LOWER CHEST Heart is normal in size. Lung bases are clear. No pleural or pericardial effusions. UPPER ABDOMEN Liver and bile ducts: No focal liver lesion. Periportal edema is present throughout the liver. Portal vein and hepatic veins are patent. No biliary dilatation. Gallbladder: Trace pericholecystic fluid, nonspecific. No dense gallstones or gallbladder wall thickening. Pancreas: Unremarkable. Spleen: Normal. RETROPERITONEUM Adrenals: Normal. Kidneys: Enhance symmetrically with no solid mass or hydronephrosis. A 3 mm nonobstructing right renal stone is identified. No ureteral stones are seen. Lymph nodes: No lymphadenopathy in the abdomen or pelvis. BOWEL AND PERITONEUM Bowel: No findings of acute small bowel obstruction. The appendix is not well seen on this exam. Moderate volume stool density is present within the large bowel. No acute inflammatory changes noted. Free air or fluid: There is small volume free fluid within the pelvis, nonspecific and may be physiologic or reactive. VASCULATURE The abdominal aorta is normal in caliber. PELVIS There is mild circumferential wall thickening of the urinary bladder, nonspecific. A small focus of gas is seen dependently within the urinary bladder lumen (series 2 image 1:30), also nonspecific. A corpus luteal cyst is present within the right ovary. BONES/SOFT TISSUES No significant lesion. Impression: 1. Periportal edema is seen within the liver. This is nonspecific but can be seen in the setting of aggressive IV hydration, underlying liver disease or biliary infection. 2. Trace pericholecystic fluid, nonspecific but may be reactive to adjacent liver pathology or congestive changes. No dense gallstones or gallbladder wall thickening. 3. A 3 mm nonobstructing right renal stone is identified. No ureteral stones or hydronephrosis. 4. Mild circumferential wall thickening of the urinary bladder. A small focus of gas is seen dependently within the urinary bladder lumen. Findings are nonspecific but cannot exclude cystitis. 5. Small volume free fluid is seen within the pelvis, nonspecific and may be physiologic or reactive. 6. A corpus luteal cyst is seen within the right ovary. Ordered By: TEJAS CHANDLER Interpreted By: Foster Crowe MD, 05/16/2025 4:18 PM ED Course / Medical Decision Making Medical Decision Making Patient presenting with flank/pelvic pain and urinary frequency. Differential included UTI, pyelonephritis, diverticulitis, nephrolithiasis, appendicitis, cholangitis. Also considered but less likelygiven history and physical exam included constipation, bowel perforation, gastritis, pancreatitis, mesenteric ischemia, genital torsion. Patient given rocephin & normal saline bolus. Given ceftriaxone and prescribed keflex. Follow up with PMD this week. Return precautions given. Amount and/or Complexity of Data Reviewed Labs: ordered. Decision-making details documented in ED Course. Radiology: ordered. Risk Prescription drug management. ED Course as of 05/16/251911May 16, 2025 1503 LEUKOCYTES (U)(!): 1+ [CA] 1503 WBC/HPF: 50-100 [CA] ED Course User Index [CA] Tejas Chandler MD Clinical Impression Pyelonephritis (Primary) Disposition: Discharge [1] Past Medical History: Diagnosis Date Migraines Plica of knee, left Stress fracture left ankle 2014 [2] Past Surgical History: Procedure Laterality Date TONSILLECTOMY [3] No family history on file. [4] Social History Tobacco Use Smoking status: Never Smokeless tobacco: Never Vaping Use Vaping status: Never Used Substance Use Topics Alcohol use: No Drug use: No Tejas Chandler MD 05/16/251911 OR SOFTWARE ARCHITECT * Francine Call RN - 05/16/2025 2:21 PM CST Arrives to ED with c/o intermittent left flank pain and lower abdominal pain. Pt states her pain started yesterday to her right lower abdomen and right flank pain and took tylenol yesterday for the pain and it helped. Pt c/o nausea with no vomiting. No urinary symptoms. No fever or chills. Pt states she had a CT scan a month ago that showed a kidney stone in the right kidney. f OR SOFTWARE ARCHITECT documented in this encounter Plan of Treatment Not on file documented as of this encounter Procedures Procedure Name Priority Date/Time Associated Diagnosis Comments CT ABD+PEL W CON STAT 05/16/2025 3:47 PM SENIOR SOFTWARE ARCHITECT TEST URINE STAT 05/16/2025 2:40 PM SENIOR SOFTWARE ARCHITECT URINALYSIS, AUTO, COMPLETE STAT 05/16/2025 2:40 PM SENIOR SOFTWARE ARCHITECT COMPREHENSIVE METABOLIC PANEL STAT 05/16/2025 2:40 PM SENIOR SOFTWARE ARCHITECT CBC W/DIFF AUTOMATED STAT 05/16/2025 2:40 PM SENIOR SOFTWARE ARCHITECT documented in this encounter Results * CT ABD+PEL W IV CON ONLY (05/16/2025 3:47 PM SENIOR SOFTWARE ARCHITECT) Anatomical Region Laterality Modality Abdomen Computed Tomogra phy 05/16/2025 4:18 PM SENIOR SOFTWARE ARCHITECT Impressions 05/16/2025 4:25 PM SENIOR SOFTWARE ARCHITECT Impression: 1. Periportal edema is seen within the liver. This is nonspecific but can be seen in the setting of aggressive IV hydration, underlying liver disease or biliary infection. 2. Trace pericholecystic fluid, nonspecific but may be reactive to adjacent liver pathology or congestive changes. No dense gallstones or gallbladder wall thickening. 3. A 3 mm nonobstructing right renal stone is identified. No ureteral stones or hydronephrosis. 4. Mild circumferential wall thickening of the urinary bladder. A small focus of gas is seen dependently within the urinary bladder lumen. Findings are nonspecific but cannot exclude cystitis. 5. Small volume free fluid is seen within the pelvis, nonspecific and may be physiologic or reactive. 6. A corpus luteal cyst is seen within the right ovary. Ordered By: TEJAS CHANDLER Interpreted By: Foster Crowe MD, 05/16/2025 4:18 PM Narrative 05/16/2025 4:25 PM SENIOR SOFTWARE ARCHITECT [facility] [address] [place] [address] Examination: CT abdomen and pelvis with IV contrast. Clinical Information: Intermittent abdominal pain worsening for past 2 days. Comparison:No comparison. Technique: IV contrast: 75 mL Isovue 370. Oral contrast: None. Technical comments: Standard technique. Dose reduction: This CT exam was performed using one or more of the following dose reduction techniques: Automated exposure control, adjustment of the mA and/or kV according to patient size, and/or use of iterative reconstruction technique. Findings: LOWER CHEST Heart is normal in size. Lung bases are clear. No pleural or pericardial effusions. UPPER ABDOMEN Liver and bile ducts: No focal liver lesion. Periportal edema is present throughout the liver. Portal vein and hepatic veins are patent. No biliary dilatation. Gallbladder: Trace pericholecystic fluid, nonspecific. No dense gallstones or gallbladder wall thickening. Pancreas: Unremarkable. Spleen: Normal. RETROPERITONEUM Adrenals: Normal. Kidneys: Enhance symmetrically with no solid mass or hydronephrosis. A 3 mm nonobstructing right renal stone is identified. No ureteral stones are seen. Lymph nodes: No lymphadenopathy in the abdomen or pelvis. BOWEL AND PERITONEUM Bowel: No findings of acute small bowel obstruction. The appendix is not well seen on this exam. Moderate volume stool density is present within the large bowel. No acute inflammatory changes noted. Free air or fluid: There is small volume free fluid within the pelvis, nonspecific and may be physiologic or reactive. VASCULATURE The abdominal aorta is normal in caliber. PELVIS There is mild circumferential wall thickening of the urinary bladder, nonspecific. A small focus of gas is seen dependently within the urinary bladder lumen (series 2 image 1:30), also nonspecific. A corpus luteal cyst is present within the right ovary. BONES/SOFT TISSUES No significant lesion. Procedure Note Foster Crowe MD - 05/16/2025 [facility] [address] [place] [address] Examination: CT abdomen and pelvis with IV contrast. Clinical Information: Intermittent abdominal pain worsening for past 2days. Comparison:No comparison. Technique: IV contrast: 75 mL Isovue 370. Oral contrast: None. Technical comments: Standard technique. Dose reduction: This CT exam was performed using one or more of thefollowing dose reduction techniques: Automated exposure control,adjustment of the mA and/or kV according to patient size, and/or use ofiterative reconstruction technique. Findings: LOWER CHEST Heart is normal in size. Lung bases are clear. No pleural or pericardialeffusions. UPPER ABDOMEN Liver and bile ducts: No focal liver lesion. Periportal edema is presentthroughout the liver. Portal vein and hepatic veins are patent. No biliarydilatation. Gallbladder: Trace pericholecystic fluid, nonspecific. No dense gallstonesor gallbladder wall thickening. Pancreas: Unremarkable. Spleen: Normal. RETROPERITONEUM Adrenals: Normal. Kidneys: Enhance symmetrically with no solid mass or hydronephrosis. A 3mm nonobstructing right renal stone is identified. No ureteral stones areseen. Lymph nodes: No lymphadenopathy in the abdomen or pelvis. BOWEL AND PERITONEUM Bowel: No findings of acute small bowel obstruction. The appendix is notwell seen on this exam. Moderate volume stool density is present withinthe large bowel. No acute inflammatory changes noted. Free air or fluid: There is small volume free fluid within the pelvis,nonspecific and may be physiologic or reactive. VASCULATURE The abdominal aorta is normal in caliber. PELVIS There is mild circumferential wall thickening of the urinary bladder,nonspecific. A small focus of gas is seen dependently within the urinarybladder lumen (series 2 image 1:30), also nonspecific. A corpus lutealcyst is present within the right ovary. BONES/SOFT TISSUES No significant lesion. Impression: 1. Periportal edema is seen within the liver. This is nonspecific but canbe seen in the setting of aggressive IV hydration, underlying liverdisease or biliary infection. 2. Trace pericholecystic fluid, nonspecific but may be reactive toadjacent liver pathology or congestive changes. No dense gallstones orgallbladder wall thickening. 3. A 3 mm nonobstructing right renal stone is identified. No ureteralstones or hydronephrosis. 4. Mild circumferential wall thickening of the urinary bladder. A smallfocus of gas is seen dependently within the urinary bladder lumen.Findings are nonspecific but cannot exclude cystitis. 5. Small volume free fluid is seen within the pelvis, nonspecific and maybe physiologic or reactive. 6. A corpus luteal cyst is seen within the right ovary. Ordered By: TEJAS CHANDLER Interpreted By: Foster Crowe MD, 05/16/2025 4:18 PM Tejas Chandler MD CT Final Result * TEST URINE (05/16/2025 2:40 PM SENIOR SOFTWARE ARCHITECT) URINE HCG TEST NEG NEGATIVE 05/16/2025 2:51 PM SENIOR SOFTWARE ARCHITECT [facility] Comment: VERY DILUTE URINE SPECIMENS MAY NOT CONTAIN BUSINESS INTELLIGENCE MANAGER LEVELS OF HCG. IF IS STILL SUSPECTED, A SERUM HCG TEST IS RECOMMENDED. URINE SPECIMEN FROM URETHRA / Unknown 05/16/2025 2:40 PM SENIOR SOFTWARE ARCHITECT Tejas Chandler MD URINE ORDERABLES Final Result [facility] [address] [id number], [place] [phone] * (ABNORMAL) URINALYSIS, AUTO, COMPLETE (05/16/2025 2:40 PM SENIOR SOFTWARE ARCHITECT) COLOR (U) YELLOW 05/16/2025 2:56 PM SENIOR SOFTWARE ARCHITECT [facility] TRANSPARENCY HAZY 05/16/2025 2:56 PM SENIOR SOFTWARE ARCHITECT [facility] SPECIFIC GRAVITY (U) 1.015 1.000 - 1.030 05/16/2025 2:56 PM SENIOR SOFTWARE ARCHITECT [facility] U PH 8.5 5.0 - 9.0 05/16/2025 2:56 PM SENIOR SOFTWARE ARCHITECT [facility] LEUKOCYTES (U) 1+(A) NEGATIVE 05/16/2025 2:56 PM [facility] NITRITES NEGATIVE NEGATIVE 05/16/2025 2:56 PM [facility] PROTEIN RANDOM (U) 2+(A) NEGATIVE 05/16/2025 2:56 PM [facility] GLUCOSE (U) NEGATIVE NEGATIVE 05/16/2025 2:56 PM [facility] KETONES MG/DL (U) NEGATIVE NEGATIVE 05/16/2025 2:56 PM [facility] BILIRUBIN (U) NEGATIVE NEGATIVE 05/16/2025 2:56 PM [facility] BLOOD (U) 2+(A) NEGATIVE 05/16/2025 2:56 PM [facility] WBC/HPF 50-100 0 - 5 /HPF 05/16/2025 2:56 PM [facility] RBC/HPF 10-25 0 - 5 /HPF 05/16/2025 2:56 PM [facility] EPI/HPF MODERATE /HPF 05/16/2025 2:56 PM [facility] URINE HAYWARD FEW 05/16/2025 2:56 PM [facility] Comment:MUCOUS URINE SPECIMEN OBTAINED BY CLEAN CATCH PROCEDURE / Unknown 05/16/2025 2:40 PM SENIOR SOFTWARE ARCHITECT us Tejas Chandler MD URINE ORDERABLES Final Result [facility] [address] [facility] [place] [address], [place] [phone] * (ABNORMAL) COMPREHENSIVE METABOLIC PANEL (05/16/2025 2:40 PM SENIOR SOFTWARE ARCHITECT) GLUCOSE 97 70 - 99 MG/DL 05/16/2025 3:02 PM [facility] BUN 7 7 - 18 MG/DL 05/16/2025 3:02 PM [facility] CREATININE S/P/B 0.75 0.55 - 1.02 MG/DL 05/16/2025 3:02 PM [facility] SODIUM S/P/B 139 136 - 145 MMOL/L 05/16/2025 3:02 PM [facility] POTASSIUM S/P/B 4.1 3.5 - 5.1 MMOL/L 05/16/2025 3:02 PM [facility] CHLORIDE S/P/B 104 100 - 108 MMOL/L 05/16/2025 3:02 PM [facility] CO2 27.7 21 - 32 MMOL/L 05/16/2025 3:02 PM [facility] CALCIUM S/P/B 8.7 8.5 - 10.1 MG/DL 05/16/2025 3:02 PM [facility] BILIRUBIN TOTAL S/P/B 0.6 0.2 - 1.2 MG/DL 05/16/2025 3:02 PM [facility] TOTAL PROTEIN S/P/B 7.0 6.4 - 8.2 G/DL 05/16/2025 3:02 PM [facility] ALBUMIN S/P/B 4.0 3.4 - 5.0 G/DL 05/16/2025 3:02 PM [facility] AST 13(L) 15 - 37 U/L 05/16/2025 3:02 PM [facility] ALT 14 14 - 55 U/L 05/16/2025 3:02 PM [facility] ALKALINE PHOSPHATASE S/P/B 36(L) 50 - 136 U/L 05/16/2025 3:02 PM [facility] ANION GAP 7.3 5 - 15 MMOL/L 05/16/2025 3:02 PM [facility] BUN CREATININE RATIO 9.3 6 - 26 05/16/2025 3:02 PM [facility] A/G RATIO 1.3 1.0 - 2.0 RATIO 05/16/2025 3:02 PM [facility] GFR ESTIMATE >90 >90 ML/MIN/1.7 3 M2 05/16/2025 3:02 PM [facility] Comment: NOTE: eGFR is not calculated for patients <18 years of age. This is an estimated GFR calculation using the new CKD EPI creatinine equation without race and so does not require a correction factor for race. This estimated GFR should not be used for calculating drug doses. 05/16/2025 2:40 PM SENIOR SOFTWARE ARCHITECT us Tejas Chandler MD LABORATORY Final Result [facility] [address] [id number], * (ABNORMAL) CBC W/DIFF AUTOMATED (05/16/2025 2:40 PM SENIOR SOFTWARE ARCHITECT) WBC 8.23 4.4 - 11.0 x10'3/uL 05/16/2025 2:48 PM [facility] RBC 3.87(L) 4.50 - 5.10 x10'6/uL 05/16/2025 2:48 PM [facility] HGB 11.9(L) 12.3 - 15.3 G/DL 05/16/2025 2:48 PM [facility] HCT 35.9 35.9 - 44.6 % 05/16/2025 2:48 PM [facility] MCV 92.8 80.0 - 96.0 FL 05/16/2025 2:48 PM [facility] MCH 30.7 25.3 - 30.9 PG 05/16/2025 2:48 PM [facility] MCHC 33.1 31.0 - 34.1 G/DL 05/16/2025 2:48 PM [facility] RDW 12.6 12.4 - 15.1 % 05/16/2025 2:48 PM [facility] PLT 205 151 - 353 x10'3/uL 05/16/2025 2:48 PM [facility] MPV 9.8 9.6 - 12.0 FL 05/16/2025 2:48 PM [facility] RBC MORPHOLOGY NORMAL 05/16/2025 2:48 PM [facility] PLT MORPH. NORMAL 05/16/2025 2:48 PM [facility] WBC MORPHOLOGY NORMAL 05/16/2025 2:48 PM [facility] LYMPHOCYTES % 13.5(L) 15.8 - 45.0 % 05/16/2025 2:48 PM [facility] NEUTROPHILS % 78.5(H) 42.1 - 71.9 % 05/16/2025 2:48 PM [facility] MONOCYTES % 6.2 5.7 - 12.5 % 05/16/2025 2:48 PM [facility] EOSINOPHILS 1.2 0.0 - 5.6 % 05/16/2025 2:48 PM [facility] BASOPHILS 0.4 0.0 - 1.3 % 05/16/2025 2:48 PM [facility] ABS. NEUTROPHILS 6.46(H) 1.40 - 6.00 x10'3/uL 05/16/2025 2:48 PM SENIOR SOFTWARE ARCHITECT [facility] IMMATURE GRANS % 0.2 0.0 - 0.5 % 05/16/2025 2:48 PM SENIOR SOFTWARE ARCHITECT [facility] ABS. LYMPHOCYTES 1.11 0.80 - 4.70 x10'3/uL 05/16/2025 2:48 PM SENIOR SOFTWARE ARCHITECT [facility] 05/16/2025 2:40 PM SENIOR SOFTWARE ARCHITECT us Tejas Chandler MD LABORATORY Final Result [facility] [address] [place] [address], documented in this encounter Visit Diagnoses Diagnosis Pyelonephritis- Primary Pyelonephritis, unspecified documented in this encounter Administered Medications Inactive Administered Medications - up to 3 most recent administrations Medication Order MAR Action Action Date Dose Rate Site cefTRIAXone (cefTRIAXone Sodium) 1 g in sterile water 10 mL IV 1 g, Intravenous, at 120 mL/hr, Once, 1 dose, On Wed05/16/25 at 1645, Reconstitute each vial with 9.6 mL of diluent for a concentration of 100 mg/mL. Administer over at least 5 minutes. Given 05/16/2025 4:50 PM SENIOR SOFTWARE ARCHITECT 1 g 120 mL/hr iopamidol (ISOVUE-370) 76 % injection 75 mL 75 mL, Intravenous, IMG once as needed, Contrast, 1 dose, Starting on Wed05/16/25 at 1547, Until Wed05/16/25 at 1542 Given 05/16/2025 3:42 PM SENIOR SOFTWARE ARCHITECT 75 mLs ketorolac (TORADOL) injection 15 mg 15 mg, Intravenous, Once, 1 dose, On Wed05/16/25 at 1430, For IV administration, give over 15 seconds. Given 05/16/2025 2:50 PM SENIOR SOFTWARE ARCHITECT 15 mg ondansetron (ZOFRAN) injection 4 mg 4 mg, Intravenous, Once, 1 dose, On Wed05/16/25 at 1430, IV push over 2-5 minutes. Given 05/16/2025 2:50 PM SENIOR SOFTWARE ARCHITECT 4 mg sodium chloride 0.9% bolus infusion 1,000 mL 1,000 mL, Intravenous, Administer over 60 Minutes, Once, 1 dose, On Wed05/16/25 at 1430 New Bag 05/16/2025 2:49 PM SENIOR SOFTWARE ARCHITECT 1,000 mLs 999 mL/hr documented in this encounter Active and Recently Administered Medications Times are shown in SENIOR SOFTWARE ARCHITECT. Scheduled Medication Order 05/14/2025 05/15/2025 05/16/2025 cefTRIAXone (cefTRIAXone Sodium) 1 g in sterile water 10 mL IV (COMPLETED) 1 g, Intravenous, at 120 mL/hr, Once, 1 dose, On Wed05/16/25 at 1645, Reconstitute each vial with 9.6 mL of diluent for a concentration of 100 mg/mL. Administer over at least 5 minutes. 1650 (Given - Provid er: Amber Huerta RN) ketorolac (TORADOL) injection 15 mg (COMPLETED) 15 mg, Intravenous, Once, 1 dose, On Wed05/16/25 at 1430, For IV administration, give over 15 seconds. 1450 (Given - Provid er: Francine Call RN) ondansetron (ZOFRAN) injection 4 mg (COMPLETED) 4 mg, Intravenous, Once, 1 dose, On Wed05/16/25 at 1430, IV push over 2-5 minutes. 1450 (Given - Provid er: Francine Call RN) sodium chloride 0.9% bolus infusion 1,000 mL (COMPLETED) 1,000 mL, Intravenous, Administer over 60 Minutes, Once, 1 dose, On Wed05/16/25 at 1430 1449 (New Bag - Prov ider: Francine Call RN)1533 (Infusion Stop Time - Provider: Francine Call RN) PRN Medication Order 05/14/2025 05/15/2025 05/16/2025 iopamidol (ISOVUE-370) 76 % injection 75 mL (COMPLETED) 75 mL, Intravenous, IMG once as needed, Contrast, 1 dose, Starting on Wed05/16/25 at 1547, Until Wed05/16/25 at 1542 1542 (Given - Provid er: Elizabeth Reza, RTR) documented in this encounter Care Teams Celery Wrapper Relationship Specialty Start Date End Date Alma Delia Sterling MD [facility] [address] [place] [address] PCP - General FAMILY PRACTICE 05/16/25 documented as of this encounter
--- OUTSIDE RECORDS SUMMARY | 2025-05-16 14:15 | XMS_ITS | Encounter Summary ---
Author Organization [facility] Address [address] [place] [address] Care Team Providers Care Rug Scratcher Name Role Phone Alma Delia Sterling MD Primary Care Provider [phone] Reason for Referral * Imaging (Emergency) - New Request Specialty Diagnoses / Procedures Referred By Contac t Referred To Contact RADIOLOGY Procedures CT ABD+PEL W IV CON ONLY Tejas Chandler MD [address] [place] [address] Phone: tel: fax: Referral ID Status Reason Start Date Expiration Date V isits Requested Visits Authorized [id number] New Request 05/16/2025 05/16/2026 1 1 NG CLIPPER Reason for Visit * Reason Comments Back Pain Encounter Details Date Type Department Care Team (Late st Contact Info) Description 05/16/2025 2:15 PM SPRING CLIPPER - 05/16/2025 5:30 PM SPRING CLIPPER Emergency [facility] Emergency Room [address] [place] [address] Tejas Chandler MD [address] [place] [address] Back Pain Discharge Disposition: Home or [...] Sex Assigned at Female 05/16/2025 2:58 PM SPRING CLIPPER Legal Sex Female 8:22 PM CDT Gender Identity Not on file Sexual Orientation Not on file documented as of this encounter Last Filed Vital Signs Vital Sign Reading Time Taken Comments Blood Pressure 99/56 05/16/2025 5:28 PM SPRING CLIPPER Pulse 62 05/16/2025 5:28 PM SPRING CLIPPER Temperature 36.1 C (97 F) 05/16/2025 2:28 PM SPRING CLIPPER Respiratory Rate 18 05/16/2025 5:28 PM SPRING CLIPPER Oxygen Saturation 100% 05/16/2025 5:28 PM SPRING CLIPPER Inhaled Oxygen Concentration - - Weight 49.9 kg (110 lb) 05/16/2025 2:30 PM SPRING CLIPPER Height 160 cm (5' 3) 05/16/2025 2:28 PM SPRING CLIPPER Body Mass Index 19.49 05/16/2025 2:28 PM SPRING CLIPPER documented in this encounter Functional Status * Calculated C-SSRS Risk Score (Lifetime/Recent) Answer Date of Assessment Author Status No Risk Indicated 05/16/2025 2:30 PM SPRING CLIPPER Francine Call RN Active * Gilchrist Suicide Severity Rating Scale (Screener/Recent Self-Report) Question Answer Date of Assessment Author Status 1. Wish to be (Past 1 Month) No 05/16/2025 2:30 PM SPRING CLIPPER Francine Call RN Active 2. Non-Specific Active Suicidal Thoughts (Past 1 Month) No 05/16/2025 2:30 PM SPRING CLIPPER Francine Call RN Active 6. Suicidal Behavior (Lifetime) No 05/16/2025 2:30 PM SPRING CLIPPER Francine Call RN Active documented as of this encounter Discharge Instructions * Attachments The following attachments cannot be sent through Care Everywhere. * Kidney Infection Discharge Instructions (Dutch) documented in this encounter Medications at Time [...] verbalized understanding of instructions and follow up NG CLIPPER * Tejas Chandler MD - 05/16/2025 2:29 [...] IV CON ONLY Final Result by User, [id number] (05/16 1629) [facility] [address] [place] [address] Examination: CT abdomen and pelvis with IV [...] Drug use: No Tejas Chandler MD 05/16/251911 NG CLIPPER * Francine Call RN - 05/16/2025 2:21 [...] kidney stone in the right kidney. f NG CLIPPER documented in this encounter Plan of Treatment Not on file documented as of this encounter Procedures Procedure Name Priority Date/Time Associated Diagnosis Comments CT ABD+PEL W CON STAT 05/16/2025 3:47 PM SPRING CLIPPER TEST URINE STAT 05/16/2025 2:40 PM SPRING CLIPPER URINALYSIS, AUTO, COMPLETE STAT 05/16/2025 2:40 PM SPRING CLIPPER COMPREHENSIVE METABOLIC PANEL STAT 05/16/2025 2:40 PM SPRING CLIPPER CBC W/DIFF AUTOMATED STAT 05/16/2025 2:40 PM SPRING CLIPPER documented in this encounter Results * CT ABD+PEL W IV CON ONLY (05/16/2025 3:47 PM SPRING CLIPPER) Anatomical Region Laterality Modality Abdomen Computed Tomogra phy 05/16/2025 4:18 PM SPRING CLIPPER Impressions 05/16/2025 4:25 PM SPRING CLIPPER Impression: 1. Periportal edema is seen within [...] 05/16/2025 4:18 PM Narrative 05/16/2025 4:25 PM SPRING CLIPPER [facility] [address] [place] [address] Examination: CT abdomen and pelvis with IV [...] Procedure Note Foster Crowe MD - 05/16/2025 [facility] [address] [place] [address] Examination: CT abdomen and pelvis with IV [...] seen within the right ovary. Ordered By: ETJAS CHANDLER Interpreted By: Foster Crowe MD, 05/16/2025 4:18 PM Tejas Chandler MD CT Final Result * TEST URINE (05/16/2025 2:40 PM SPRING CLIPPER) URINE HCG TEST NEG NEGATIVE 05/16/2025 2:51 PM SPRING CLIPPER [facility] Comment: VERY DILUTE URINE SPECIMENS MAY NOT CONTAIN DRAFTING TECHNICIAN LEVELS OF HCG. IF IS STILL SUSPECTED, A SERUM HCG TEST IS RECOMMENDED. URINE SPECIMEN FROM URETHRA / Unknown 05/16/2025 2:40 PM SPRING CLIPPER Tejas Chandler MD URINE ORDERABLES Final Result [facility] [address] [place] [id number], [place] [phone] * (ABNORMAL) URINALYSIS, AUTO, COMPLETE (05/16/2025 2:40 PM SPRING CLIPPER) COLOR (U) YELLOW 05/16/2025 2:56 PM SPRING CLIPPER [facility] TRANSPARENCY HAZY 05/16/2025 2:56 PM SPRING CLIPPER [facility] SPECIFIC GRAVITY (U) 1.015 1.000 - 1.030 05/16/2025 2:56 PM SPRING CLIPPER [facility] U PH 8.5 5.0 - 9.0 05/16/2025 2:56 PM SPRING CLIPPER [facility] LEUKOCYTES (U) 1+(A) NEGATIVE 05/16/2025 2:56 PM [facility] NITRITES NEGATIVE NEGATIVE 05/16/2025 2:56 PM [facility] PROTEIN RANDOM (U) 2+(A) NEGATIVE 05/16/2025 2:56 PM [facility] GLUCOSE (U) NEGATIVE NEGATIVE 05/16/2025 2:56 PM [facility] KETONES MG/DL (U) NEGATIVE NEGATIVE 05/16/2025 2:56 PM [facility] BILIRUBIN (U) NEGATIVE NEGATIVE 05/16/2025 2:56 PM [facility] BLOOD (U) 2+(A) NEGATIVE 05/16/2025 2:56 PM [facility] WBC/HPF 50-100 0 - 5 /HPF 05/16/2025 2:56 PM [facility] RBC/HPF 10-25 0 - 5 /HPF 05/16/2025 2:56 PM [facility] EPI/HPF MODERATE /HPF 05/16/2025 2:56 PM [facility] URINE HAYWARD FEW 05/16/2025 2:56 PM [facility] Comment:MUCOUS URINE SPECIMEN OBTAINED BY CLEAN CATCH PROCEDURE / Unknown 05/16/2025 2:40 PM SPRING CLIPPER us Tejas Chandler MD URINE ORDERABLES Final Result [facility] [address] [place] [address], [place] [phone] * (ABNORMAL) COMPREHENSIVE METABOLIC PANEL (05/16/2025 2:40 PM SPRING CLIPPER) GLUCOSE 97 70 - 99 MG/DL 05/16/2025 3:02 PM [facility] BUN 7 7 - 18 MG/DL 05/16/2025 3:02 PM [facility] CREATININE S/P/B 0.75 0.55 - 1.02 MG/DL 05/16/2025 3:02 PM [facility] SODIUM S/P/B 139 136 - 145 MMOL/L 05/16/2025 3:02 PM [facility] POTASSIUM S/P/B 4.1 3.5 - 5.1 MMOL/L 05/16/2025 3:02 PM [facility] CHLORIDE S/P/B 104 100 - 108 MMOL/L 05/16/2025 3:02 PM [facility] CO2 27.7 21 - 32 MMOL/L 05/16/2025 3:02 PM [facility] CALCIUM S/P/B 8.7 8.5 - 10.1 MG/DL 05/16/2025 3:02 PM [facility] BILIRUBIN TOTAL S/P/B 0.6 0.2 - 1.2 MG/DL 05/16/2025 3:02 PM [facility] TOTAL PROTEIN S/P/B 7.0 6.4 - 8.2 G/DL 05/16/2025 3:02 PM [facility] ALBUMIN S/P/B 4.0 3.4 - 5.0 G/DL 05/16/2025 3:02 PM [facility] AST 13(L) 15 - 37 U/L 05/16/2025 3:02 PM [facility] ALT 14 14 - 55 U/L 05/16/2025 3:02 PM [facility] ALKALINE PHOSPHATASE S/P/B 36(L) 50 - 136 U/L 05/16/2025 3:02 PM [facility] ANION GAP 7.3 5 - 15 MMOL/L 05/16/2025 3:02 PM [facility] BUN CREATININE RATIO 9.3 6 - 26 05/16/2025 3:02 PM [facility] A/G RATIO 1.3 1.0 - 2.0 RATIO 05/16/2025 3:02 PM [facility] GFR ESTIMATE >90 >90 ML/MIN/1.7 3 M2 05/16/2025 3:02 PM [facility] Comment: NOTE: eGFR is not calculated for patients <18 years of age. This is an estimated GFR calculation using the new CKD EPI creatinine equation without race and so does not require a correction factor for race. This estimated GFR should not be used for calculating drug doses. 05/16/2025 2:40 PM SPRING CLIPPER us Tejas Chandler MD LABORATORY Final Result [facility] [address] [id number], * (ABNORMAL) CBC W/DIFF AUTOMATED (05/16/2025 2:40 PM SPRING CLIPPER) WBC 8.23 4.4 - 11.0 x10'3/uL 05/16/2025 2:48 PM [facility] RBC 3.87(L) 4.50 - 5.10 x10'6/uL 05/16/2025 2:48 PM [facility] HGB 11.9(L) 12.3 - 15.3 G/DL 05/16/2025 2:48 PM [facility] HCT 35.9 35.9 - 44.6 % 05/16/2025 2:48 PM [facility] MCV 92.8 80.0 - 96.0 FL 05/16/2025 2:48 PM [facility] MCH 30.7 25.3 - 30.9 PG 05/16/2025 2:48 PM [facility] MCHC 33.1 31.0 - 34.1 G/DL 05/16/2025 2:48 PM [facility] RDW 12.6 12.4 - 15.1 % 05/16/2025 2:48 PM [facility] PLT 205 151 - 353 x10'3/uL 05/16/2025 2:48 PM [facility] MPV 9.8 9.6 - 12.0 FL 05/16/2025 2:48 PM [facility] RBC MORPHOLOGY NORMAL 05/16/2025 2:48 PM [facility] PLT MORPH. NORMAL 05/16/2025 2:48 PM [facility] WBC MORPHOLOGY NORMAL 05/16/2025 2:48 PM [facility] LYMPHOCYTES % 13.5(L) 15.8 - 45.0 % 05/16/2025 2:48 PM [facility] NEUTROPHILS % 78.5(H) 42.1 - 71.9 % 05/16/2025 2:48 PM [facility] MONOCYTES % 6.2 5.7 - 12.5 % 05/16/2025 2:48 PM [facility] EOSINOPHILS 1.2 0.0 - 5.6 % 05/16/2025 2:48 PM [facility] BASOPHILS 0.4 0.0 - 1.3 % 05/16/2025 2:48 PM [facility] ABS. NEUTROPHILS 6.46(H) 1.40 - 6.00 x10'3/uL 05/16/2025 2:48 PM SPRING CLIPPER [facility] IMMATURE GRANS % 0.2 0.0 - 0.5 % 05/16/2025 2:48 PM SPRING CLIPPER [facility] ABS. LYMPHOCYTES 1.11 0.80 - 4.70 x10'3/uL 05/16/2025 2:48 PM SPRING CLIPPER [facility] 05/16/2025 2:40 PM SPRING CLIPPER us Tejas Chandler MD LABORATORY Final Result [facility] [address] [place] [address], documented in this encounter Visit Diagnoses Diagnosis [...] least 5 minutes. Given 05/16/2025 4:50 PM SPRING CLIPPER 1 g 120 mL/hr iopamidol (ISOVUE-370) 76 % injection 75 mL 75 mL, Intravenous, IMG once as needed, Contrast, 1 dose, Starting on Wed05/16/25 at 1547, Until Wed05/16/25 at 1542 Given 05/16/2025 3:42 PM SPRING CLIPPER 75 mLs ketorolac (TORADOL) injection 15 mg 15 mg, Intravenous, Once, 1 dose, On Wed05/16/25 at 1430, For IV administration, give over 15 seconds. Given 05/16/2025 2:50 PM SPRING CLIPPER 15 mg ondansetron (ZOFRAN) injection 4 mg 4 mg, Intravenous, Once, 1 dose, On Wed05/16/25 at 1430, IV push over 2-5 minutes. Given 05/16/2025 2:50 PM SPRING CLIPPER 4 mg sodium chloride 0.9% bolus infusion 1,000 mL 1,000 mL, Intravenous, Administer over 60 Minutes, Once, 1 dose, On Wed05/16/25 at 1430 New Bag 05/16/2025 2:49 PM SPRING CLIPPER 1,000 mLs 999 mL/hr documented in this encounter Active and Recently Administered Medications Times are shown in SPRING CLIPPER. Scheduled Medication Order 05/14/2025 05/15/2025 05/16/2025 cefTRIAXone [...] RTR) documented in this encounter Care Teams Rug Scratcher Relationship Specialty Start Date End Date Alma Delia Sterling MD [facility] [address] [place] [address] PCP - General FAMILY PRACTICE 05/16/25 documented as of this encounter
--- OUTSIDE RECORDS SUMMARY | 2025-05-17 12:28 | XMS_ITS | Clinical Summary ---
Author Organization [facility] Address [address] [place] [address] Care Team Providers Care Rod Cup Filler Name Role Phone Raffaele Desir MD Primary Care Provider [phone] Source Comments [facility],non-owned Affiliates and Associated Physician Practices is amultiple site organization consisting of ambulatory clinics and hospital sitesin [place], [place], [place] and [place]. This disclosure is being madepursuant to the Care Everywhere program and may not contain all information available regarding this patient. Last updated 18.[facility] Allergies Active Allergy Reactions Criticality Noted Date [...] Comments Blood Pressure 108/64 09/04/2020 2:04 PM MEDICAL ADVISOR Pulse 88 09/04/2020 2:04 PM MEDICAL ADVISOR Temperature 36.7 C (98 F) 09/04/2020 2:04 PM MEDICAL ADVISOR Respiratory Rate 16 09/04/2020 2:04 PM MEDICAL ADVISOR Oxygen Saturation 98% 09/04/2020 2:04 PM MEDICAL ADVISOR Inhaled Oxygen Concentration - - Weight 64.4 kg (142 lb) 09/04/2020 2:04 PM MEDICAL ADVISOR Height 162.6 cm (5' 4) 09/04/2020 2:04 PM MEDICAL ADVISOR Body Mass Index 24.37 09/04/2020 2:04 PM MEDICAL ADVISOR Plan of Treatment Health Maintenance Due Date [...] TAYLOR Subscriber ID:Not on file (Home) Address: [facility] [place] [address] Payer ID:Not on file Group ID:Not on file Type:Self Pay Address: [place], [place] [employer] [facility] Care Teams Rod Cup Filler Relationship Specialty Start Date End Date Raffaele Desir MD [facility] [address] [address] PCP - General Pediatrics 03/10/18
--- OUTSIDE RECORDS SUMMARY | 2025-05-17 12:28 | XMS_ITS | Clinical Summary ---
Author Organization [facility] Address [address] [place] [address] Care Team Providers Care Professor Of Economics Name Role Phone Alma Delia Sterling MD Primary Care Provider [phone] [phone] Allergies No known active allergies Medications Norethin-Eth [...] Take 20 mg by mouth daily. Active cephALEXin (KEFLEX) 500 MG capsule Take 1 capsule (500 mg total) by mouth 2 (two) times daily for 10 days. 20 capsule 05/16/2025 Active Encounters Date Type Department Care Team Description 05/16/2025 2:15 PM SPOOL TENDER - 05/16/2025 5:30 PM [facility] Emergency [facility] Room [id number] [place] [address] Tejas Chandler MD Back Pain Discharge Disposition: Home or Self Care (Routine Discharge) 05/16/2025 Travel from Last 3 Months Social History Tobacco Use Types Packs/Day Years [...] Sex Assigned at Female 05/16/2025 2:58 PM SPOOL TENDER Legal Sex Female 8:22 PM CDT Gender Identity Not on file Sexual Orientation Not on file Last Filed Vital Signs Vital Sign Reading Time Taken Comments Blood Pressure 99/56 05/16/2025 5:28 PM SPOOL TENDER Pulse 62 05/16/2025 5:28 PM SPOOL TENDER Temperature 36.1 C (97 F) 05/16/2025 2:28 PM SPOOL TENDER Respiratory Rate 18 05/16/2025 5:28 PM SPOOL TENDER Oxygen Saturation 100% 05/16/2025 5:28 PM SPOOL TENDER Inhaled Oxygen Concentration - - Weight 49.9 kg (110 lb) 05/16/2025 2:30 PM SPOOL TENDER Height 160 cm (5' 3) 05/16/2025 2:28 PM SPOOL TENDER Body Mass Index 19.49 05/16/2025 2:28 PM SPOOL TENDER Plan of Treatment Health Maintenance Due Date Last Done Comments Cervical Cancer Screening Pa p Smear (Age 21 to 29) Every 3 Years 2002 Cervical Cancer Screening 2002 Annual Physical 2005 HPV Vaccines (1 - 3-dose series) 2017 Chlamydia Screening Females ages 16-24 2018 Meningococcal B Vaccine (1 o f 2 - Standard) 2018 Hepatitis C 01/25/2020 Hepatitis B Vaccines (1 of 3 - 19+ 3-dose series) 2021 DTaP, Tdap and Td Vaccines ( 2 - Td or Tdap) 01/01/2023 01/01/2013 COVID-19 Vaccine (3 - 2024-2 6 season) 2025 11/21/2020, 10/26/2020 Influenza Adult (#1) 2025 04/29/2020, 04/16/2020 Hepatitis A Vaccines Aged Out No long er eligible based on patient's age to complete this topic Meningococcal Vaccine Aged Out No bennett shawanda eligible based on patient's age to complete this topic Pneumococcal Vaccine: Pediatrics (0 to 5 Years) and At-Risk Patients (6 to 49 Years) Aged Out No longer eligible b ased on patient's age to complete this topic RSV Immunizations Under 20 Months Aged Out No longer eligible b ased on patient's age to complete this topic Procedures Procedure Name Priority Date/Time Associated Diagnosis Comments CT ABD+PEL W CON STAT 05/16/2025 3:47 PM SPOOL TENDER TEST URINE STAT 05/16/2025 2:40 PM SPOOL TENDER URINALYSIS, AUTO, COMPLETE STAT 05/16/2025 2:40 PM SPOOL TENDER COMPREHENSIVE METABOLIC PANEL STAT 05/16/2025 2:40 PM SPOOL TENDER CBC W/DIFF AUTOMATED STAT 05/16/2025 2:40 PM SPOOL TENDER from Last 3 Months Results * CT ABD+PEL W IV CON ONLY (05/16/2025 3:47 PM SPOOL TENDER) Anatomical Region Laterality Modality Abdomen Computed Tomogra phy 05/16/2025 4:18 PM SPOOL TENDER Impressions 05/16/2025 4:25 PM SPOOL TENDER Impression: 1. Periportal edema is seen within [...] 05/16/2025 4:18 PM Narrative 05/16/2025 4:25 PM SPOOL TENDER [facility] [address] [place] [id number] Examination: CT abdomen and pelvis with IV [...] Procedure Note Foster Crowe MD - 05/16/2025 [facility] [address] [place] [id number] Examination: CT abdomen and pelvis with IV [...] Result * TEST URINE (05/16/2025 2:40 PM SPOOL TENDER) URINE HCG TEST NEG NEGATIVE 05/16/2025 2:51 PM SPOOL TENDER [facility] Comment: VERY DILUTE URINE SPECIMENS MAY NOT CONTAIN CATH LAB TECHNOLOGIST LEVELS OF HCG. IF IS STILL SUSPECTED, A SERUM HCG TEST IS RECOMMENDED. URINE SPECIMEN FROM URETHRA / Unknown 05/16/2025 2:40 PM SPOOL TENDER Tejas Chandler MD URINE ORDERABLES Final Result [facility] [address] [place] [address], [place] [phone] * (ABNORMAL) URINALYSIS, AUTO, COMPLETE (05/16/2025 2:40 PM SPOOL TENDER) COLOR (U) YELLOW 05/16/2025 2:56 PM SPOOL TENDER [facility] TRANSPARENCY HAZY 05/16/2025 2:56 PM SPOOL TENDER [facility] SPECIFIC GRAVITY (U) 1.015 1.000 - 1.030 05/16/2025 2:56 PM SPOOL TENDER [facility] U PH 8.5 5.0 - 9.0 05/16/2025 2:56 PM SPOOL TENDER [facility] LEUKOCYTES (U) 1+(A) NEGATIVE 05/16/2025 2:56 PM SPOOL TENDER [facility] NITRITES NEGATIVE NEGATIVE 05/16/2025 2:56 PM SPOOL TENDER [facility] PROTEIN RANDOM (U) 2+(A) NEGATIVE 05/16/2025 2:56 PM SPOOL TENDER [facility] GLUCOSE (U) NEGATIVE NEGATIVE 05/16/2025 2:56 PM SPOOL TENDER [facility] KETONES MG/DL (U) NEGATIVE NEGATIVE 05/16/2025 2:56 PM [facility] BILIRUBIN (U) NEGATIVE NEGATIVE 05/16/2025 2:56 PM [facility] BLOOD (U) 2+(A) NEGATIVE 05/16/2025 2:56 PM [facility] WBC/HPF 50-100 0 - 5 /HPF 05/16/2025 2:56 PM [facility] RBC/HPF 10-25 0 - 5 /HPF 05/16/2025 2:56 PM [facility] EPI/HPF MODERATE /HPF 05/16/2025 2:56 PM [facility] URINE HAYWARD FEW 05/16/2025 2:56 PM [facility] Comment:MUCOUS URINE SPECIMEN OBTAINED BY CLEAN CATCH PROCEDURE / Unknown 05/16/2025 2:40 PM SPOOL TENDER us Tejas Chandler MD URINE ORDERABLES Final Result [facility] [address] [place] [id number], [place] [phone] * (ABNORMAL) COMPREHENSIVE METABOLIC PANEL (05/16/2025 2:40 PM SPOOL TENDER) GLUCOSE 97 70 - 99 MG/DL 05/16/2025 3:02 PM [facility] BUN 7 7 - 18 MG/DL 05/16/2025 3:02 PM [facility] CREATININE S/P/B 0.75 0.55 - 1.02 MG/DL 05/16/2025 3:02 PM [facility] SODIUM S/P/B 139 136 - 145 MMOL/L 05/16/2025 3:02 PM [facility] POTASSIUM S/P/B 4.1 3.5 - 5.1 MMOL/L 05/16/2025 3:02 PM [facility] CHLORIDE S/P/B 104 100 - 108 MMOL/L 05/16/2025 3:02 PM [facility] CO2 27.7 21 - 32 MMOL/L 05/16/2025 3:02 PM [facility] CALCIUM S/P/B 8.7 8.5 - 10.1 MG/DL 05/16/2025 3:02 PM [facility] BILIRUBIN TOTAL S/P/B 0.6 0.2 - 1.2 MG/DL 05/16/2025 3:02 PM [facility] TOTAL PROTEIN S/P/B 7.0 6.4 - 8.2 G/DL 05/16/2025 3:02 PM [facility] ALBUMIN S/P/B 4.0 3.4 - 5.0 G/DL 05/16/2025 3:02 PM [facility] AST 13(L) 15 - 37 U/L 05/16/2025 3:02 PM [facility] ALT 14 14 - 55 U/L 05/16/2025 3:02 PM [facility] ALKALINE PHOSPHATASE S/P/B 36(L) 50 - 136 U/L 05/16/2025 3:02 PM [facility] ANION GAP 7.3 5 - 15 MMOL/L 05/16/2025 3:02 PM [facility] BUN CREATININE RATIO 9.3 6 - 26 05/16/2025 3:02 PM [facility] A/G RATIO 1.3 1.0 - 2.0 RATIO 05/16/2025 3:02 PM [facility] GFR ESTIMATE >90 >90 ML/MIN/1.7 3 M2 05/16/2025 3:02 PM SPOOL TENDER [facility] Comment: NOTE: eGFR is not calculated for patients <18 years of age. This is an estimated GFR calculation using the new CKD EPI creatinine equation without race and so does not require a correction factor for race. This estimated GFR should not be used for calculating drug doses. 05/16/2025 2:40 PM SPOOL TENDER Tejas Chandler MD LABORATORY Final Result [facility] [address] [place] [address], * (ABNORMAL) CBC W/DIFF AUTOMATED (05/16/2025 2:40 PM SPOOL TENDER) WBC 8.23 4.4 - 11.0 x10'3/uL 05/16/2025 2:48 PM SPOOL TENDER [facility] RBC 3.87(L) 4.50 - 5.10 x10'6/uL 05/16/2025 2:48 PM SPOOL TENDER [facility] HGB 11.9(L) 12.3 - 15.3 G/DL 05/16/2025 2:48 PM SPOOL TENDER [facility] HCT 35.9 35.9 - 44.6 % 05/16/2025 2:48 PM [facility] MCV 92.8 80.0 - 96.0 FL 05/16/2025 2:48 PM SPOOL TENDER [facility] MCH 30.7 25.3 - 30.9 PG 05/16/2025 2:48 PM SPOOL TENDER [facility] MCHC 33.1 31.0 - 34.1 G/DL 05/16/2025 2:48 PM [facility] RDW 12.6 12.4 - 15.1 % 05/16/2025 2:48 PM [facility] PLT 205 151 - 353 x10'3/uL 05/16/2025 2:48 PM [facility] MPV 9.8 9.6 - 12.0 FL 05/16/2025 2:48 PM [facility] RBC MORPHOLOGY NORMAL 05/16/2025 2:48 PM [facility] PLT MORPH. NORMAL 05/16/2025 2:48 PM [facility] WBC MORPHOLOGY NORMAL 05/16/2025 2:48 PM [facility] LYMPHOCYTES % 13.5(L) 15.8 - 45.0 % 05/16/2025 2:48 PM [facility] NEUTROPHILS % 78.5(H) 42.1 - 71.9 % 05/16/2025 2:48 PM [facility] MONOCYTES % 6.2 5.7 - 12.5 % 05/16/2025 2:48 PM [facility] EOSINOPHILS 1.2 0.0 - 5.6 % 05/16/2025 2:48 PM [facility] BASOPHILS 0.4 0.0 - 1.3 % 05/16/2025 2:48 PM [facility] ABS. NEUTROPHILS 6.46(H) 1.40 - 6.00 x10'3/uL 05/16/2025 2:48 PM [facility] IMMATURE GRANS % 0.2 0.0 - 0.5 % 05/16/2025 2:48 PM [facility] ABS. LYMPHOCYTES 1.11 0.80 - 4.70 x10'3/uL 05/16/2025 2:48 PM [facility] 05/16/2025 2:40 PM SPOOL TENDER us Tejas Chandler MD LABORATORY Final Result [facility] [address] [place] [address], [place] [phone] from Last 3 Months Insurance [facility] [place] [place] [id number] Care Teams Professor Of Economics Relationship Specialty Start Date End Date Alma Delia Sterling MD [address] [place] [address] [place] [phone] PCP - General FAMILY PRACTICE 05/16/25
--- OUTSIDE RECORDS SUMMARY | 2025-05-17 12:28 | XMS_ITS | Encounter Summary ---
Author Organization [facility] Address [address] [place] [address] Care Team Providers Care Varnish Maker Name Role Phone Alma Delia Sterling MD Primary Care Provider +1 [phone] Encounter Details Date Type Department Care Team (Latest Contact Info) Description 05/16/2025 Travel Social History Tobacco Use Types Packs/Day Years [...] Sex Assigned at Female 05/16/2025 2:58 PM GRAPHIC DESIGN TEACHER Legal Sex Female 8:22 PM CDT Gender Identity Not on file Sexual Orientation Not on file documented as of this encounter Functional Status * Calculated C-SSRS Risk Score (Lifetime/Recent) Answer Date of Assessment Author Status No Risk Indicated 05/16/2025 2:30 PM GRAPHIC DESIGN TEACHER Francine Call RN Active * [place] Suicide Severity Rating Scale (Screener/Recent Self-Report) Question Answer Date of Assessment Author Status 1. Wish to be (Past 1 Month) No 05/16/2025 2:30 PM GRAPHIC DESIGN TEACHER Francine Call RN Active 2. Non-Specific Active Suicidal Thoughts (Past 1 Month) No 05/16/2025 2:30 PM GRAPHIC DESIGN TEACHER Francine Call RN Active 6. Suicidal Behavior (Lifetime) No 05/16/2025 2:30 PM GRAPHIC DESIGN TEACHER Beer, Francine D, RN Active documented as of this encounter Plan of Treatment Not on file documented as of this encounter Visit Diagnoses Not on filedocumented in this encounter Care Teams Varnish Maker Relationship Specialty Start Date End Date Alma Delia Sterling MD [address] [facility] [address] [place] [address] PCP - General FAMILY PRACTICE 05/16/25 documented as of this encounter
--- OUTSIDE RECORDS SUMMARY | 2025-05-17 12:28 | XMS_ITS | Clinical Summary ---
Author Organization [facility] Address [address] [place] [phone] Care Team Providers Care Drug And Alcohol Counselor Name Role Phone Alma Delia Sterling MD Primary Care Provider + Allergies Active Allergy Reactions Criticality Noted Date Comments Lactose Stomach upset Low 03/10/2018 Medications FLUoxetine (PROzac) 20 mg capsule TK 1 C PO Q DAY 0 Active norethindrone-e. estradioL-iron (LOESTIN 24 FE) 1 mg-20 mcg (24)/75 mg (4) per tablet Take 1 tablet by mouth daily Active aspirin 325 mg enteric coated tabletIndication s:Chronic pain of left knee Take 1 tablet (325 mg total) by mouth 2 (two) times a day for 14 days 28 tablet 0 Active Additional Information Patient not taking.Reported on 04/11/2025 ondansetron (ZOFRAN) 4 mg tabletIndication s:Chronic pain of left knee Take 1 tablet (4 mg total) by mouth every 6 (six) hours as needed for nausea or vomiting 20 tablet 0 Active Additional Information Patient not taking.Reported on 04/11/2025 Aimovig Autoinjector 140 mg/mL auto-injector 3 Active [...] Take 25 mg by mouth daily Active benzonatate (TESSALON) 100 mg capsuleIndicatio ns:Cough Take 1 capsule (100 mg total) by mouth 3 (three) times a day as needed for cough 21 capsule 5 Active Active Problems Problem Noted Date Diagnosed Date Aftercare following surgery of the musculoskelet al system 03/08/2020 Irritable bowel syndrome 06/11/2017 Periumbilical abdominal pain 06/07/2017 Knee pain 02/22/2012 Encounters Date Type Department Care Team Description 04/12/2025 Results Follow-Up [facility] at [address] [address] Yesenia Hewitt PA Throat culture Throat 04/11/2025 9:03 AM CDT - 04/11/2025 11:59 PM CDT Hospital Encounter [address] [address] Nasopharyngitis Discharge Disposition: Discharge to home or self care 04/11/2025 8:15 AM CDT Office Visit [facility] at [address] [address] Yesenia Hewitt PA Nasopharyngitis (Primary Dx) from Last 3 Months Surgical History Surgery Date Site/Laterality Comments WISDOM [...] Packs/Day Years Used Date Smoking Tobacco: Never Comments Unknown Sex and Gender Information Value Date Recorded Sex Assigned at Not on file Legal Sex Female 4:26 AM MUSIC THERAPIST Gender Identity Not on file Sexual Orientation Not on file 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 Not on file Not on file Last Filed Vital Signs Vital Sign Reading Time Taken Comments Blood Pressure 105/72 04/11/2025 8:23 AM CDT Pulse 77 04/11/2025 8:23 AM CDT Temperature 36.6 C (97.9 F) 04/11/2025 8:23 AM CDT Respiratory Rate 18 04/11/2025 8:23 AM CDT Oxygen Saturation 98% 04/11/2025 8:23 AM CDT Inhaled Oxygen Concentration - - Weight 47.9 kg (105 lb 11.2 oz) 04/11/2025 8:23 AM CDT Height 157.5 cm (5' 2.01) 04/11/2025 8:23 AM CD T Body Mass Index 19.33 04/11/2025 8:23 AM CDT Plan of Treatment Health Maintenance Due [...] Procedure Name Priority Date/Time Associated Diagnosis Comments THROAT CULTURE Routine 04/11/2025 9:30 AM CDT Nasopharyngitis POCT RAPID STREP Routine 04/11/2025 8:50 AM CDT Nasopharyngitis POC INFLUENZA A/B, COVID-19 ANTIGEN Routine 04/11/2025 8:50 AM CDT Nasopharyngitis from Last 3 Months Results * Throat culture Throat (04/11/2025 9:30 AM CDT) Report Final Report: No growth of pathogens. Comment:Testing performed by : [facility], [address] [facility], [place]., [address] Throat 04/11/2025 9:30 AM CDT 04/11/2025 5:08 PM CDT Narrative KIKA BECKETT - 04/12/2025 2:06 PM CDT Testing performed by [facility] Microbiology Laboratory ([phone]). [facility] MICROBIOLOGY - GENER AL ORDERABLES Final Result [facility] [address] [address] [place] [address] * POC Influenza A/B, COVID-19 antigen (04/11/2025 8:50 AM CDT) Influenza A Ag, POC Negative Negative [facility] Influenza B Ag, POC Negative Negative [facility] COVID-19 Ag POC Presumptive Negative Presumptive Negative, Invalid [facility] Nasal 04/11/2025 8:50 AM CDT Yesenia DYER POINT OF CARE TEST ORDER FERMIN Final Result [facility] [address] [place] [address] * POCT rapid strep A (04/11/2025 8:50 AM CDT) Rapid Strep A, POC Negative Negative Swab 04/11/2025 8:50 AM CDT Yesenia DYER POINT OF CARE TEST ORDER FERMIN Final Result from Last [address] [facility] PPO BLUE ACCESS OOS BLUE ACCESS OOS [facility] PPO Care Teams Drug And Alcohol Counselor Relationship Specialty Start Date End Date Alma Delia Sterling MD [address] [place] [address] [address] [place], [place] [id number] PCP - General Family Medicine 04/11/25
--- OUTSIDE RECORDS SUMMARY | 2025-05-17 12:28 | XMS_ITS | Encounter Summary ---
Author Organization [facility] Healthcare Address [address] [place] [address] Care Team Providers Care Head Worker Name Role Phone Alma Delia Sterling MD Primary Care Provider + Encounter Details Date Type Department Care Team (Late st Contact Info) Description 04/12/2025 Results Follow-Up [facility] at [place] [id number] [place] [address] Yesenia Hewitt PA [address] [place] [address] [address] [place] [address] Throat culture Throat Social History Tobacco Use Types Packs/Day Years Used Date Smoking Tobacco: Never Comments Unknown Sex and Gender Information Value Date Recorded Sex Assigned at Not on file Legal Sex Female 4:26 AM TESTER VIBRATOR EQUIPMENT Gender Identity Not on file Sexual Orientation Not on file 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
--- OUTSIDE RECORDS SUMMARY | 2025-05-17 14:17 | XMS_ITS | Encounter Summary ---
Author Organization [facility] Address [address] [place] [address] Care Team Providers Care Explosive Operator Supervisor Name Role Phone Alma Delia Sterling MD Primary Care Provider [phone] Encounter Details Date Type Department Care Team [...] Sex Assigned at Female 05/16/2025 2:58 PM FIGURE MODEL Legal Sex Female 8:22 PM CDT Gender Identity Not on file Sexual Orientation Not on file documented as of this encounter Functional Status * Calculated C-SSRS Risk Score (Lifetime/Recent) Answer Date of Assessment Author Status No Risk Indicated 05/16/2025 2:30 PM FIGURE MODEL Francine Call RN Active * [place] Suicide Severity Rating Scale (Screener/Recent Self-Report) Question Answer Date of Assessment Author Status 1. Wish to be (Past 1 Month) No 05/16/2025 2:30 PM FIGURE MODEL Francine Call RN Active 2. Non-Specific Active Suicidal Thoughts (Past 1 Month) No 05/16/2025 2:30 PM FIGURE MODEL Francine Call RN Active 6. Suicidal Behavior (Lifetime) No 05/16/2025 2:30 PM FIGURE MODEL Beer, Francine D, RN Active documented as of this encounter Plan of Treatment Not on file documented as of this encounter Visit Diagnoses Not on filedocumented in this encounter Care Teams Explosive Operator Supervisor Relationship Specialty Start Date End Date Alma Delia Sterling MD [address] [facility] [address] [place] [address] PCP - General FAMILY PRACTICE 05/16/25 documented as of this encounter
--- OUTSIDE RECORDS SUMMARY | 2025-05-17 14:17 | XMS_ITS | Encounter Summary ---
Author Organization [facility] Healthcare Address [address] [place] [address] Care Team Providers Care Tube Washer Name Role Phone Alma Delia Sterling MD Primary Care Provider + Encounter Details Date Type Department Care Team (Late st Contact Info) Description 04/12/2025 Results Follow-Up [facility] at [place] [address] [place] [address] Yesenia Hewitt PA [address] [place] [address] [address] [place] [address] Throat culture Throat Social History Tobacco Use Types Packs/Day Years Used Date Smoking Tobacco: Never Comments Unknown Sex and Gender Information Value Date Recorded Sex Assigned at Not on file Legal Sex Female 4:26 AM LAB TECHNICIAN Gender Identity Not on file Sexual Orientation Not on file 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
--- OUTSIDE RECORDS SUMMARY | 2025-05-17 14:17 | XMS_ITS | Clinical Summary ---
Author Organization [facility] Address [address] [place] [address] Care Team Providers Care Gathering Worker Name Role Phone Alma Delia Sterling [...] Department Care Team Description 04/12/2025 Results Follow-Up [facility]ient Care at [address] [address] Yesenia Hewitt PA Throat culture Throat 04/11/2025 9:03 AM CDT - 04/11/2025 11:59 PM CDT Hospital Encounter [address] [address] Nasopharyngitis Discharge Disposition: Discharge to home or self care 04/11/2025 8:15 AM CDT Office Visit [facility] at [address] [address] Yesenia Hewitt PA Nasopharyngitis (Primary Dx) from [...] on file Legal Sex Female 4:26 AM SUPERVISOR HAIRSPRING FABRICATION Gender Identity Not on file Sexual Orientation Not on file 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 Comment:Testing performed by : [facility], [address] [facility], [place]., [address] Throat 04/11/2025 9:30 AM CDT 04/11/2025 5:08 PM CDT Narrative KIKA BECKETT - 04/12/2025 2:06 PM CDT Testing performed by [facility] Microbiology Laboratory ([phone]). [facility] MICROBIOLOGY - GENER AL ORDERABLES Final Result [facility] [address] [address] Department [place] [address] * POC Influenza A/B, COVID-19 antigen (04/11/2025 8:50 AM CDT) Influenza A Ag, POC Negative Negative [facility] Influenza B Ag, POC Negative Negative [facility] COVID-19 Ag POC Presumptive Negative Presumptive Negative, Invalid [facility] Nasal 04/11/2025 8:50 AM CDT Yesenia DYER POINT OF CARE TEST ORDER FERMIN Final Result [facility] [address] [place] [address] * POCT rapid strep A (04/11/2025 8:50 AM CDT) Rapid Strep A, POC Negative Negative Swab 04/11/2025 8:50 AM CDT Yesenia DYER POINT OF CARE TEST ORDER FERMIN Final Result from Last 3 Months Insurance [facility] PPO BLUE ACCESS OOS BLUE ACCESS OOS [facility] Address: [address] [place] [address] Care Teams Gathering Worker Relationship Specialty Start Date End Date Alma Delia Sterling MD [address] [place] [address] [address] [place], [place] [id number] PCP - General Family Medicine 04/11/25
--- OUTSIDE RECORDS SUMMARY | 2025-05-17 14:17 | XMS_ITS | Clinical Summary ---
Author Organization [facility] [employer] Address [address] [place] [address] Care Team Providers Care Rivet Hole Puncher Name Role Phone Raffaele Desir MD Primary Care Provider [phone] Source Comments [facility] [employer],non-owned Affiliates and Associated Physician Practices is amultiple site organization consisting of ambulatory clinics and hospital sitesin [place], [place], [place] and [place]. This disclosure is being madepursuant to the Care Everywhere program and may not contain all information available regarding this patient. Last updated 18.[facility] [employer] Allergies Active Allergy Reactions Criticality Noted Date [...] Comments Blood Pressure 108/64 09/04/2020 2:04 PM DYSLEXIA TEACHER Pulse 88 09/04/2020 2:04 PM DYSLEXIA TEACHER Temperature 36.7 C (98 F) 09/04/2020 2:04 PM DYSLEXIA TEACHER Respiratory Rate 16 09/04/2020 2:04 PM DYSLEXIA TEACHER Oxygen Saturation 98% 09/04/2020 2:04 PM DYSLEXIA TEACHER Inhaled Oxygen Concentration - - Weight 64.4 kg (142 lb) 09/04/2020 2:04 PM DYSLEXIA TEACHER Height 162.6 cm (5' 4) 09/04/2020 2:04 PM DYSLEXIA TEACHER Body Mass Index 24.37 09/04/2020 2:04 PM DYSLEXIA TEACHER Plan of Treatment Health Maintenance Due Date [...] ID:Not on file (Home) Address: [facility] [address] [address] Payer ID:Not on file Group ID:Not on file Type:Self Pay Address: [place], [place] [employer] [facility] Care Teams Rivet Hole Puncher Relationship Specialty Start Date End Date Raffaele Desir MD [facility] [address] [address] PCP - General Pediatrics 03/10/18
--- OUTSIDE RECORDS SUMMARY | 2025-05-17 14:17 | XMS_ITS | Clinical Summary ---
Author Organization [facility] Address [address] [place] [id number] Care Team Providers Care Financial Analyst Name Role Phone Alma Delia Sterling MD Primary Care Provider [phone] Allergies No known active allergies Medications Norethin-Eth [...] Department Care Team Description 05/16/2025 2:15 PM CREAM HAULER - 05/16/2025 5:30 PM [facility] Emergency [facility] Emergency Room [id number] [place] [id number] Tejas Chandler MD Back Pain Discharge Disposition: [...] Sex Assigned at Female 05/16/2025 2:58 PM CREAM [facility]ULER Legal Sex Female 8:22 PM CDT Gender Identity Not on file Sexual Orientation Not on file Last Filed Vital Signs Vital Sign Reading Time Taken Comments Blood Pressure 99/56 05/16/2025 5:28 PM CREAM HAULER Pulse 62 05/16/2025 5:28 PM CREAM HAULER Temperature 36.1 C (97 F) 05/16/2025 2:28 PM CREAM HAULER Respiratory Rate 18 05/16/2025 5:28 PM CREAM HAULER Oxygen Saturation 100% 05/16/2025 5:28 PM CREAM HAULER Inhaled Oxygen Concentration - - Weight 49.9 kg (110 lb) 05/16/2025 2:30 PM CREAM HAULER Height 160 cm (5' 3) 05/16/2025 2:28 PM CREAM HAULER Body Mass Index 19.49 05/16/2025 2:28 PM CREAM HAULER Plan of Treatment Health Maintenance Due Date [...] ABD+PEL W CON STAT 05/16/2025 3:47 PM CREAM HAULER TEST URINE STAT 05/16/2025 2:40 PM CREAM HAULER URINALYSIS, AUTO, COMPLETE STAT 05/16/2025 2:40 PM CREAM HAULER COMPREHENSIVE METABOLIC PANEL STAT 05/16/2025 2:40 PM CREAM HAULER CBC W/DIFF AUTOMATED STAT 05/16/2025 2:40 PM CREAM HAULER from Last 3 Months Results * CT ABD+PEL W IV CON ONLY (05/16/2025 3:47 PM CREAM HAULER) Anatomical Region Laterality Modality Abdomen Computed Tomogra phy 05/16/2025 4:18 PM CREAM HAULER Impressions 05/16/2025 4:25 PM CREAM HAULER Impression: 1. Periportal edema is seen within [...] 05/16/2025 4:18 PM Narrative 05/16/2025 4:25 PM CREAM HAULER [facility] [address] [place] [id number] Examination: CT abdomen and pelvis with IV [...] Procedure Note Foster Crowe MD - 05/16/2025 [facility] [address] [place] [id number] Examination: CT abdomen and pelvis with IV [...] Result * TEST URINE (05/16/2025 2:40 PM CREAM [facility]ULER) URINE HCG TEST NEG NEGATIVE 05/16/2025 2:51 PM CRE[facility] Comment: VERY DILUTE URINE SPECIMENS MAY NOT CONTAIN CUSTOMER RECORDS DIVISION SUPERVISOR LEVELS OF HCG. IF IS STILL SUSPECTED, A SERUM HCG TEST IS RECOMMENDED. URINE SPECIMEN FROM [facility]RETHRA / Unknown 05/16/2025 2:40 PM CREAM HAULER Tejas Chandler MD URINE ORDERABLES Final Result [facility] [address] [place] [address], [place] [phone] * (ABNORMAL) URINALYSIS, AUTO, COMPLETE (05/16/2025 2:40 PM CREAM HAULER) COLOR (U) YELLOW 05/16/2025 2:56 PM CREAM [facility]ULER [facility] TRANSPARENCY HAZY 05/16/2025 2:56 PM CRE[facility]ER [facility] SPECIFIC GRAVITY (U) 1.015 1.000 - 1.030 05/16/2025 2:56 PM CRE[facility]ER [facility] U PH 8.5 5.0 - 9.0 05/16/2025 2:56 PM CREAM [facility]ER [facility] LEUKOCYTES (U) 1+(A) NEGATIVE 05/16/2025 2:56 PM CREAM HAULER [facility] NITRITES NEGATIVE NEGATIVE 05/16/2025 2:56 PM CREAM HAULER [facility] PROTEIN RANDOM (U) 2+(A) NEGATIVE 05/16/2025 2:56 PM CREAM HAULER [facility] GLUCOSE (U) NEGATIVE NEGATIVE 05/16/2025 2:56 PM CRE[facility] HAULER [facility] KETONES MG/DL (U) NEGATIVE NEGATIVE 05/16/2025 2:56 PM [facility] BILIRUBIN (U) NEGATIVE NEGATIVE 05/16/2025 2:56 PM [facility] BLOOD (U) 2+(A) NEGATIVE 05/16/2025 2:56 PM [facility] WBC/HPF 50-100 0 - 5 /HPF 05/16/2025 2:56 PM [facility] RBC/HPF 10-25 0 - 5 /HPF 05/16/2025 2:56 PM [facility] EPI/HPF MODERATE /HPF 05/16/2025 2:56 PM [facility] URINE HAYWARD FEW 05/16/2025 2:56 PM [facility] Comment:MUCOUS URINE SPECIMEN OBTAINED BY CLEAN CATCH PROCEDURE / Unknown 05/16/2025 2:40 PM CREAM HAULER us Tejas Chandler MD URINE ORDERABLES Final Result [facility] [address] [place] [id number], [place] [phone] * (ABNORMAL) COMPREHENSIVE METABOLIC PANEL (05/16/2025 2:40 PM CREAM HAULER) GLUCOSE 97 70 - 99 MG/DL 05/16/2025 3:02 PM [facility] BUN 7 7 - 18 MG/DL 05/16/2025 3:02 PM [facility] CREATININE S/P/B 0.75 0.55 - 1.02 MG/DL 05/16/2025 3:02 PM [facility] SODIUM S/P/B 139 136 - 145 MMOL/L 05/16/2025 3:02 PM [facility] POTASSIUM S/P/B 4.1 3.5 - 5.1 MMOL/L 05/16/2025 3:02 PM [facility] CHLORIDE S/P/B 104 100 - 108 MMOL/L 05/16/2025 3:02 PM [facility] CO2 27.7 21 - 32 MMOL/L 05/16/2025 3:02 PM [facility] CALCIUM S/P/B 8.7 8.5 - 10.1 MG/DL 05/16/2025 3:02 PM [facility] BILIRUBIN TOTAL S/P/B 0.6 0.2 - 1.2 MG/DL 05/16/2025 3:02 PM [facility] TOTAL PROTEIN S/P/B 7.0 6.4 - 8.2 G/DL 05/16/2025 3:02 PM [facility] ALBUMIN S/P/B 4.0 3.4 - 5.0 G/DL 05/16/2025 3:02 PM [facility] AST 13(L) 15 - 37 U/L 05/16/2025 3:02 PM [facility] ALT 14 14 - 55 U/L 05/16/2025 3:02 PM [facility] ALKALINE PHOSPHATASE S/P/B 36(L) 50 - 136 U/L 05/16/2025 3:02 PM [facility] ANION GAP 7.3 5 - 15 MMOL/L 05/16/2025 3:02 PM [facility] BUN CREATININE RATIO 9.3 6 - 26 05/16/2025 3:02 PM [facility] A/G RATIO 1.3 1.0 - 2.0 RATIO 05/16/2025 3:02 PM [facility] GFR ESTIMATE >90 >90 ML/MIN/1.7 3 M2 05/16/2025 3:02 PM CRE[facility]ULER [facility] Comment: NOTE: eGFR is not calculated for patients <18 years of age. This is an estimated GFR calculation using the new CKD EPI creatinine equation without race and so does not require a correction factor for race. This estimated GFR should not be used for calculating drug doses. 05/16/2025 2:40 PM CREAM HAULER Tejas Chandler MD LABORATORY Final Result [facility] [address] [place] [address], * (ABNORMAL) CBC W/DIFF AUTOMATED (05/16/2025 2:40 PM CREAM HAULER) WBC 8.23 4.4 - 11.0 x10'3/uL 05/16/2025 2:48 PM CRE[facility] HAULER [facility] RBC 3.87(L) 4.50 - 5.10 x10'6/uL 05/16/2025 2:48 PM CRE[facility] HAULER [facility] HGB 11.9(L) 12.3 - 15.3 G/DL 05/16/2025 2:48 PM CRE[facility] HAULER [facility] HCT 35.9 35.9 - 44.6 % 05/16/2025 2:48 PM [facility] MCV 92.8 80.0 - 96.0 FL 05/16/2025 2:48 PM CRE[facility] HAULER [facility] MCH 30.7 25.3 - 30.9 PG 05/16/2025 2:48 PM CREAM HAULER [facility] MCHC 33.1 31.0 - 34.1 G/DL 05/16/2025 2:48 PM [facility] RDW 12.6 12.4 - 15.1 % 05/16/2025 2:48 PM [facility] PLT 205 151 - 353 x10'3/uL 05/16/2025 2:48 PM [facility] MPV 9.8 9.6 - 12.0 FL 05/16/2025 2:48 PM [facility] RBC MORPHOLOGY NORMAL 05/16/2025 2:48 PM [facility] PLT MORPH. NORMAL 05/16/2025 2:48 PM [facility] WBC MORPHOLOGY NORMAL 05/16/2025 2:48 PM [facility] LYMPHOCYTES % 13.5(L) 15.8 - 45.0 % 05/16/2025 2:48 PM [facility] NEUTROPHILS % 78.5(H) 42.1 - 71.9 % 05/16/2025 2:48 PM [facility] MONOCYTES % 6.2 5.7 - 12.5 % 05/16/2025 2:48 PM [facility] EOSINOPHILS 1.2 0.0 - 5.6 % 05/16/2025 2:48 PM [facility] BASOPHILS 0.4 0.0 - 1.3 % 05/16/2025 2:48 PM [facility] ABS. NEUTROPHILS 6.46(H) 1.40 - 6.00 x10'3/uL 05/16/2025 2:48 PM [facility] IMMATURE GRANS % 0.2 0.0 - 0.5 % 05/16/2025 2:48 PM [facility] ABS. LYMPHOCYTES 1.11 0.80 - 4.70 x10'3/uL 05/16/2025 2:48 PM [facility] 05/16/2025 2:40 PM CREAM HAULER us Tejas Chandler MD LABORATORY Final Result [facility] [address] [place] [address], [place] [phone] from Last [address] [facility] [place] [place] [address] Care Teams Financial Analyst Relationship Specialty Start Date End Date Alma Delia Sterling MD [address] [place] [address] [place] [address] PCP - General FAMILY PRACTICE 05/16/25
== END 2025-05-16 14:52 | disposition left against medical advice (07) ==
LOC: ANHED 14:41
PROVIDERS: PCP Student in an Organized Health Care Education/Training Program
DX: R10.9 Unspecified abdominal pain (principal)
CPT/HCPCS: 99199